=== PATIENT | female | born 1970 | race Caucasian/White ===

== ENCOUNTER → 2019-07-26 13:27 | Outpatient (BNVA) | payer OTHER, SELFPAY | PROVIDERS: Family Provider Family Medicine; PCP Family Medicine; Visit Provider Internal Medicine Rheumatology | DX: L40.50 Arthropathic psoriasis, unspecified (principal); L40.0 Psoriasis vulgaris; Z79.899 Other long term (current) drug therapy; M17.0 Bilateral primary osteoarthritis of knee; I10 Essential (primary) hypertension; F17.210 Nicotine dependence, cigarettes, uncomplicated | CPT/HCPCS: 36415; 80053; 85007; 85027; 99214 ==

== ENCOUNTER 2020-08-23 14:44 | Outpatient (CLI) | payer SELFPAY ==
--- NOTE | 2020-08-23 14:52 | MM_ITS ---
WS: [id number] Exam: [id number] Date/Time of Exam: 08/23/2020 2:55 PM Reason For Exam: SCREENING VIEWS: MLO and CC views both breasts. Comparison made with prior exam of 02/12/2018, 04/12/2014 and 12/28/2012. Findings: There was no sign of mass, architectural distortion or suspicious calcification in either breast. Fa tty MM/[place] [id number] Impression: BI-RADS: 2-Benign FOLLOW-UP: 1 Year Follow-up This mammogram was also analyzed by the Computer Aided Detection System R2 Imag e Admission Liaison.
== END 2020-08-23 14:45 | disposition home or self-care (01) ==
LOC: RADSHAW 14:50
PROVIDERS: PCP Family Medicine; Visit Provider Family Medicine
DX: Z12.31 Encounter for screening mammogram for malignant neoplasm of breast (principal)
CPT/HCPCS: 77067

== ENCOUNTER → 2021-01-08 13:25 | Outpatient (BNVA) | payer OTHER, SELFPAY | PROVIDERS: PCP Family Medicine; Visit Provider Internal Medicine | DX: Z79.899 Other long term (current) drug therapy (principal); D89.9 Disorder involving the immune mechanism, unspecified; Z51.81 Encounter for therapeutic drug level monitoring; L40.9 Psoriasis, unspecified; L40.50 Arthropathic psoriasis, unspecified; M15.9 Polyosteoarthritis, unspecified | CPT/HCPCS: 36415; 80053; 85025; 85651; 86140 ==

== ENCOUNTER → 2021-01-15 14:32 | Outpatient (BNVA) | payer OTHER, SELFPAY | PROVIDERS: PCP Family Medicine; Visit Provider Internal Medicine | DX: L40.9 Psoriasis, unspecified (principal); D89.9 Disorder involving the immune mechanism, unspecified; D50.9 Iron deficiency anemia, unspecified; Z79.899 Other long term (current) drug therapy | CPT/HCPCS: 99214 ==

== ENCOUNTER 2021-02-15 11:13 | Outpatient (CLI) | payer OTHER, SELFPAY ==
--- NOTE | 2021-02-15 11:19 | XR_ITS ---
WS: [id number] Chest 2 views, 02/15/2021 Clinical Data: RA Comparison: PA and lateral chest, 01/05/2013. Findings: No nodules, masses or effusions are seen. The heart is normal. The pulmonary vascularity is not increased. No pneumonia or pneumothorax is seen. XR/XR chest 2V* [id number] Impression: Negative chest.
== END 2021-02-15 11:14 | disposition home or self-care (01) ==
LOC: RAD 11:18
PROVIDERS: PCP Family Medicine; Visit Provider Family Medicine
DX: L40.50 Arthropathic psoriasis, unspecified (principal)
CPT/HCPCS: 71046

== ENCOUNTER → 2021-02-27 09:16 | Outpatient (BNVA) | payer OTHER, SELFPAY | PROVIDERS: PCP Family Medicine; Visit Provider Internal Medicine | DX: D89.9 Disorder involving the immune mechanism, unspecified (principal); L40.50 Arthropathic psoriasis, unspecified; L40.9 Psoriasis, unspecified; M15.9 Polyosteoarthritis, unspecified; Z51.81 Encounter for therapeutic drug level monitoring; Z79.899 Other long term (current) drug therapy | CPT/HCPCS: 36415; 80053; 85025; 85651; 86140 ==

== ENCOUNTER → 2021-03-07 09:56 | Outpatient (BNVA) | payer OTHER, SELFPAY | PROVIDERS: PCP Family Medicine; Visit Provider Internal Medicine | DX: L40.50 Arthropathic psoriasis, unspecified (principal); M15.9 Polyosteoarthritis, unspecified; Z11.59 Encounter for screening for other viral diseases; D50.9 Iron deficiency anemia, unspecified; R19.7 Diarrhea, unspecified; E87.6 Hypokalemia; Z87.891 Personal history of nicotine dependence | CPT/HCPCS: 80053; 82306; 82533; 82550; 82607; 82728; 82784; 83516; 83540; 83735; 84100; 84439; 84443; 86704; 86803; 87340; 99214 ==

== ENCOUNTER 2021-03-11 02:12 | Inpatient (IN) | payer OTHER, SELFPAY ==
[2021-03-11] VITALS (121 sets, daily range): BP systolic 105–140; BP diastolic 70–107; PULSE 62–94; RESP 13–34; TEMP 36.7–37.2; O2SAT 89–98; BMI 35.8
--- NOTE | 2021-03-11 02:18 | XR_ITS ---
WS: [id number] XR chest 1V portable [id number] REASON FOR EXAM: chest pain FINDINGS: The chest is unchanged compared to 02/15/2021. Heart and mediastinum are within normal limits. Calcified granulomatous disease is seen in both hemithoraces. No active pulmonary parenchymal or pleu ral disease is noted. Bony thorax is intact. XR/XR chest 1V portable [id number] IMPRESSION: No acute chest abnormality.
--- NOTE | 2021-03-11 02:18 | ECG_ITS ---
[facility] Test Date: 2021-03-11 Pat Name: Jayla Alvarez Department: Room: [facility] Gender: Female Desktop Publishing Operator: : 1970 Requested By: Billy Isaac Order Number: [id number] Yahaira MD: Yodit Velasquez M.D. Measurements Intervals [place] Rate: 65 P: 267 NH: 121 QRS: 74 QRSD: 97 T: 112 QT: 378 QTc: 394 Interpretive Statements JUNCTIONAL RHYTHM ST ELEVATION, CONSIDER INFERIOR INJURY [MARKED ST ELEVATION W/O NORMALLY INFLECTED T-WAVE IN II/aVF] ACUTE [place] INTERPRETATION BASED ON A DEFAULT AGE OF 40 YEARS No previous ECG available for comparison Electronically Signed On 03-11-2021 19:11:34 CDT by Yodit Velasquez M.D. [id number]
--- NOTE | 2021-03-11 02:19 | W.ED.CHESTPA ---
HPI - Chest Pain General: Chief Complaint: Chest Pain Stated Complaint: STEMI ALERT Time Seen by Provider: 03/11/21 02:15 History of Present Illness: HPI narrative: Ms. Alvarez is a 50-year-old lady with significant past medical history of psoriatic arthritis on steroids, tobaccoism, positive family history for early cardiac disease who presents emergency department due to chest pain. She reports symptom onset subacute approximately 2.5 hours ago. She has midsternal severe chest pain associated with nausea, vomiting, diaphoresis, presyncope. Symptoms have been constant since onset with no specific exacerbating relieving factors identified. She does have one self resolving episode that occurred previously however no significant history of frequent chest pain. No other significant infectious symptoms or other symptoms reported. Patient STEMI activated from EMS in the field. Review of Systems General: Reports: 10 or more systems reviewed and unremarkable except in HPI and below Narrative: CONSTITUTIONAL: See HPI EYES - denies pain, denies loss of vision EARS - denies ear issues. NOSE - denies congestion or rhinorrhea. THROAT - denies sore throat or difficulty swallowing. CARDIOVASCULAR -see HPI RESPIRATORY -see HPI GASTROINTESTINAL -see HPI GENITOURINARY - denies dysuria or urinary frequency MUSCULOSKELETAL- denies deformity or pain SKIN - denies rashes or new changed skin lesions NEUROLOGIC - denies focal weakness or sensory changes HEMATOLOGIC/LYMPHATIC - denies easy bruising or lymphadenopathy. 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 Eyes - PERRL, no conjunctival injection ENMT - Atraumatic external nose and ears. Moist mucous membranes NECK - supple. trachea midline CARDIOVASCULAR - regular rate and rhythm. Peripheral pulses 2+ and equal RESPIRATORY -clear to auscultation bilaterally. No retractions or accessory muscle use. ABDOMEN/GI - Nontender/Nondistended. No tenderness to percussion or evidence of peritonitis MSK - Extremities without obvious deformity or tenderness to palpation SKIN - Warm, Dry NEURO - alert and appropriately oriented. strength and sensation intact. Moves all extremities equally. PSYCH - Appropriate mood and affect Course ED course: - Patient was seen and evaluated by me at bedside - Patient placed on cardiac monitors, IV access obtained - Initial evaluation notable for ill appearance, distressed due to chest pain. - EKG consistent with STEMI as activated by the field. - Labs and imaging obtained and reviewed - Analgesia and STEMI protocol ordered. - Upon serial reexamination after treatment the patient was minimally improved - Cardiology at bedside, plan to take patient emergently to Vice President Of Talent Acquisition. Vital Signs: Vital signs: Vital Signs Temperature 98.1 F 03/11/21 21:10 Pulse Rate 77 03/12/21 00:40 Respiratory Rate 31 H 03/12/21 00:40 Blood Pressure 112/80 03/12/21 00:40 Pulse Oximetry 90 03/12/21 00:40 MDM - Chest Pain Medical Records: Attestation: I reviewed the patient's medical records. Lab Data: Attestation: I reviewed the patient's lab results. Labs: Lab Results 03/11/21 03/11/21 03/11/21 Range/Units 02:20 02:20 02:20 WBC 16.9 H (4.0-10.0) 10^3/ uL RBC 4.95 (4.1-5.3) 10^6/u L Hgb 10.8 L (11.5-15.3) g/dL Hct 36.8 L (37.0-47.0) % MCV 74.3 L (81-99) fl MCH 21.8 L (28.0-34.0) pg MCHC 29.3 L (30.0-36.0) g/dL RDW 21.4 H (12.1-15.1) % Plt Count 552 H (130-400) 10^3/c mm MPV 8.9 (7.4-10.4) fL Neut % (Auto) 74.1 % Lymph % (Auto) 19.8 % [place] % (Auto) 3.8 % Eos % (Auto) 1.2 % Baso % (Auto) 0.5 % Neut # (Auto) 12.48 H (1.8-7.7) 10^3/u L Lymph # (Auto) 3.3 (0.8-4.8) 10^3/u L [place] # (Auto) 0.6 (0.2-0.9) 10^3/u L Eos # (Auto) 0.2 (0.0-0.8) 10^3/u L Baso # (Auto) 0.1 (0.0-0.1) 10^3/u L Nucleated RBC % (a uto) 0 % Nucleated RBCs # 0.0 /100WBC PT 12.80 (12.1-14.9) SECO NDS INR 0.94 (0.8-1.2) APTT 27.8 (23.9-36.7) SECO NDS Sodium 135 L (136-145) mmol/L Potassium 3.2 L (3.5-5.1) mmol/L Chloride 100 (98-107) mmol/L Carbon Dioxide 21 L (22-29) mmol/L Anion Gap 17.2 (5-19) BUN 13 (6-20) mg/dL Creatinine 0.8 (0.5-0.9) mg/dL GFR Calculation 75.6 L (90-130) mL/min Glucose 228 H (65-115) mg/dL Calculated Osmolal ity 287 (285-295) mOsm/k g Calcium 7.9 L (8.5-10.5) mg/dL Total Bilirubin 0.2 (0.15-1.2) mg/dL AST 13 (0-32) U/L ALT 15 (0-33) U/L Alkaline Phosphata se 118 H (35-105) IU/L Troponin T Baselin e (0-10) ng/L Total Protein 8.0 (6.6-8.7) g/dL Albumin 3.5 (3.5-5.2) g/dL Globulin 4.5 (1.3-4.6) g/dL Lipase 57 (13-60) U/L 03/11/21 Range/Units 02:20 WBC (4.0-10.0) 10^3/ uL RBC (4.1-5.3) 10^6/u L Hgb (11.5-15.3) g/dL Hct (37.0-47.0) % MCV (81-99) fl MCH (28.0-34.0) pg MCHC (30.0-36.0) g/dL RDW (12.1-15.1) % Plt Count (130-400) 10^3/c mm MPV (7.4-10.4) fL Neut % (Auto) % Lymph % (Auto) % [place] % (Auto) % Eos % (Auto) % Baso % (Auto) % Neut # (Auto) (1.8-7.7) 10^3/u L Lymph # (Auto) (0.8-4.8) 10^3/u L [place] # (Auto) (0.2-0.9) 10^3/u L Eos # (Auto) (0.0-0.8) 10^3/u L Baso # (Auto) (0.0-0.1) 10^3/u L Nucleated RBC % (a uto) % Nucleated RBCs # /100WBC PT (12.1-14.9) SECO NDS INR (0.8-1.2) APTT (23.9-36.7) SECO NDS Sodium (136-145) mmol/L Potassium (3.5-5.1) mmol/L Chloride (98-107) mmol/L Carbon Dioxide (22-29) mmol/L Anion Gap (5-19) BUN (6-20) mg/dL Creatinine (0.5-0.9) mg/dL GFR Calculation (90-130) mL/min Glucose (65-115) mg/dL Calculated Osmolal ity (285-295) mOsm/k g Calcium (8.5-10.5) mg/dL Total Bilirubin (0.15-1.2) mg/dL AST (0-32) U/L ALT (0-33) U/L Alkaline Phosphata se (35-105) IU/L Troponin T Baselin e 74 H (0-10) ng/L Total Protein (6.6-8.7) g/dL Albumin (3.5-5.2) g/dL Globulin (1.3-4.6) g/dL Lipase (13-60) U/L EKG Data^: EKG 1: Attestation: I personally reviewed and interpreted this EKG as follows: EKG interpretation date: 03/11/21 EKG interpretation time: 02:13 Prior EKG tracings: not available for review Ischemic changes: acute STEMI Interpretation: Twelve-lead EKG shows a regular sinus rhythm at a rate of 65. [place] interval 121, QRS duration 97, QTc 394. Normal axis. Interpretation: Inferior STEMI with high lateral reciprocal changes. Critical Care Time Critical Care Time: Critical Care Time: Yes Total Critical Care Time: 35 Attestation: This case had a high probability of a clinically significant, sudden, or life threatening deterioration of this patient's condition which required my full and direct attention, intervention and personal management. Discharge Plan Discharge Patient Disposition: Admitted As Inpatient Admit Provider: Rell Harmon Coding Level of Care Code ED Statistician Applied for Jose Angel Peralta
[2021-03-11 02:24] LABS: Basophils # 0.1 10^3/uL (0.0-0.1); Basophils % 0.5 %; Eosinophils # 0.2 10^3/uL (0.0-0.8); Eosinophils % 1.2 %; Hematocrit 36.8 % (37.0-47.0); Hemoglobin 10.8 g/dL (11.5-15.3); Lymphocytes # 3.3 10^3/uL (0.8-4.8); Lymphocytes % 19.8 %; Mean Corpuscular HGB Conc 29.3 g/dL (30.0-36.0); Mean Corpuscular Hemoglobin 21.8 pg (28.0-34.0); Mean Corpuscular Volume 74.3 fl (81-99); Mean Platelet Volume 8.9 fL (7.4-10.4); Monocytes # 0.6 10^3/uL (0.2-0.9); Monocytes % 3.8 %; Neutrophils # 12.48 10^3/uL (1.8-7.7); Neutrophils % 74.1 %; Nucleated Red Blood Cells % 0 %; Platelet Count 552 10^3/cmm (130-400); Red Blood Count 4.95 10^6/uL (4.1-5.3); Red Cell Distribution Width 21.4 % (12.1-15.1); White Blood Count 16.9 10^3/uL (4.0-10.0)
[2021-03-11] MEDS: sodium chloride 0.9% 1,000 ML 999 ML IV (02:25)
[2021-03-11] MEDS: heparin 5,000 unit/mL INJ 1 mL 4000 UNIT IVP (02:26)
[2021-03-11] MEDS: fentaNYL 50 mcg/mL INJ 2mL IVP (02:26)
[2021-03-11] MEDS: clopidogrel 300 mg Tablet 600 MG PO (02:27)
--- NOTE | 2021-03-11 02:29 | P.HP_ITS ---
Providers/Chief Complaint Admitting Physician: Rell Harmon MD Primary Care Provider: Colt Adams MD Chief Complaint: STEMI ALERT History of Present Illness Jayla Alvarez is a 50 year old female with past medical history of tobacco abuse, psoriatic arthritis on prednisone presented with 2-1/2 hours of severe substernal chest pain. She had 1 prior episode of chest pain several days ago. Today pain is radiating to the arms. Also feels nauseous. EKG shows ST elevations in inferior leads. Reciprocal changes are seen in lateral leads. Patient was emergently taken to the cardiac Wire Brush Maker. Coronary angiogram demonstrated total thrombotic occlusion of proximal to mid RCA. She also had LEAD RAMP SERVICE MAN of the left circumflex artery getting collaterals supplied from RCA and LAD. She underwent successful revascularization of the culprit vessel which was RCA with DANAE x2. ST changes resolved and she was chest pain-free at the end of procedure. Review of Systems General: Reports: 10 or more systems reviewed and unremarkable except in HPI and below Const: Reports: body aches and fatigue Eyes: Denies: change in vision or blurry vision ENMT: Denies: hoarseness Card: Reports: chest pain and palpitations Resp: Denies: dyspnea or productive cough GI: Reports: nausea and other; Denies: diarrhea : Denies: flank pain or difficulty voiding Musc: Reports: joint pain and joint swelling Psych: Reports: depression Medications/Allergies Home Medications Medication Instructions Recorded Confirmed Last Taken Type ibuprofen-diphenhydramine citrate 1 cap PO .once daily tab 07/26/19 03/07/21 Unknown History 200 mg-38 mg tablet duloxetine 20 mg capsule,delayed 20 mg PO DAILY cap 01/15/21 03/07/21 Unknown History release ferrous sulfate PO 01/15/21 03/07/21 Unknown History naproxen 500 mg tablet 500 mg PO BID PRN 01/15/21 03/07/21 Unknown History prednisone 2.5 mg tablet 2.5 mg PO DAILY 01/15/21 03/07/21 Unknown History prednisone 5 mg tablet 5 mg PO DAILY #30 tab 02/14/21 03/07/21 Unknown Rx magnesium oxide 400 mg (241.3 mg 400 mg PO DAILY #30 tab 03/07/21 03/07/21 Unknown Rx magnesium) tablet potassium chloride 20 mEq 40 meq PO DAILY #30 tab 03/07/21 03/07/21 Unknown Rx tablet,extended release(part/cryst) vitamin B complex 1 tab PO DAILY #30 tab 03/07/21 03/07/21 Unknown Rx Allergies Allergy/AdvReac Type Severity Reaction Status Date / Time No Known Allergies Allergy Verified 03/07/21 10:32 PFSH Acute PFSH: Medical History Generalized osteoarthritis Immunosuppression Microcytic anemia Psoriasis Psoriatic arthritis Social History (Updated 03/11/21 @ 03:27 by Rell Harmon M.D) Smoking and tobacco status: current every day smoker Alcohol intake: current Alcohol intake frequency: few times a month Alcohol type: beer Marital status: Number of children: 2 Current occupational status: employed 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 [] NECK: No jugular vein distension. [] HEENT: No cyanosis. No icterus. No pallor. [] HEART: Regular S1 and S2. No murmur, rub or gallop. [] LUNGS: Clear to auscultate bilaterally. [] ABDOMEN: Soft, nontender and nondistended. Positive bowel sounds. No guarding, rebound or tenderness. [] CENTRAL NERVOUS SYSTEM: Grossly nonfocal. [] EXTREMITIES: Lower extremities with 1+ edema bilaterally. Pulses palpable in the lower extremities, both dorsalis pedis and posterior tibial. [] Data : 03/11/21 02:20 03/11/21 02:20 A&P Assessment and plan (1) ST elevation AR (STEMI): Status: Acute (2) Psoriatic arthritis: Status: Acute (3) Tobacco abuse: Status: Acute Patient has presented with acute ST elevation AR status post successful revascularization of proximal to mid status post successful revascularization of proximal to mid RCA with DANAE x2. Continue aspirin and Plavix for at least 1 year High intensity statin Beta-blockers and lisinopril will be initiated Order echocardiogram. IVF for 8 hours Attestations Medical Necessity Statement*: Care expected to cross 2 midnights. Patient presented with Acute inferior wall AR s/p successful revascularization with DANAE x 2. Coding Level of Care Code Acute Quality Reviewer for Jose Angel Peralta Diagnoses ST elevation AR (STEMI) I21.3 Psoriatic arthritis L40.50 Tobacco abuse Z72.0
--- NOTE | 2021-03-11 02:30 | XACV_ITS ---
Ht: 157 cm Wt: 89 kg BSA: 2.01 m2 Gender: Female : 1970 Any Known Allergies: No known allergies Exam Priority: Routine Procedure(s): Procedure Description: Diagnostic procedure Procedure Description: PCI procedure Procedure Description: Drug Eluting Coronary Stent Procedure Description: PTCA Procedure Description: Miscellaneous Procedure Description: Angio-Seal Procedure Description: ACT Procedure Description: Coronary angiogram Diagnostic Cath Status: Emergency Diagnostic Findings * Left Main has no significant disease. * Proximal Right Coronary Artery to Mid Right Coronary Artery: total thrombotic occlusion, TOÑA: 0 flow. * Proximal Circumflex: total occlusion, TOÑA: 0 flow. Distal vessel fills by collateral blood flow. * 1st Diagonal: total occlusion, TOÑA: 3 flow. Small sized vessel. * Mid Left Anterior Descending: mild 40% stenosis, TOÑA: 3 flow. * Mid Right Coronary Artery to Distal Right Coronary Artery: total occlusion, TOÑA: 0 flow. * Coronary angiography shows right dominance. PCI Status: Emergency PCI Indication: STEMI - Immediate PCI for STEMI Interventional Findings * Procedure details: We engaged RCA with a JR4 guide catheter. IV heparin was administered to maintain an ACT above 250 seconds. A 0.014 run-through guidewire was used to cross the stenosis and was placed in PLV branch. 2.5 x 12 mm semicompliant balloon was used to predilate the stenosis . This was followed by placement of 3.0 x 18 mm resolute [place] drug-eluting stent. A second stent measuring 3.0 x 18mm was put at the distal edge of the first stent and was extended into the mid RCA. At this time final angiogram was performed that showed excellent stent expansion, TOÑA-3 flow and no residual stenosis. Guidewire and guide catheter were removed. We then engaged the left main artery with XB 3.5 guide catheter. We briefly attempted to cross the chronic total occlusion of left circumflex artery with a run-through guidewire. However it was unsuccessful and we aborted further attempts given patient's stability, lack of chest pain and resolution of EKG changes. Patient left the Regional Wildlife Agent in a stable condition. * Proximal Right Coronary Artery to Mid Right Coronary Artery: 100% stenosis treated with a AB TREK 2.50X12 RX BALLOON, and MDT R ERIK 3.0X18 DANAE. 0% residual stenosis, TOÑA: 3 flow. * Mid Right Coronary Artery to Distal Right Coronary Artery: 100% stenosis treated with a MDT R ERIK 3.0X18 DANAE. 0% residual stenosis, TOÑA: 3 flow. Conclusions 1. Total thrombotic occlusion of the proximal to mid RCA s/p successful revascularization with DANAE x 2. 2. 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 3. Moderate mid LAD stenosis. 4. Proximal Right Coronary Artery to Mid Right Coronary Artery was treated with a Balloon, and Drug Eluting Stent. 5. Mid Right Coronary Artery to Distal Right Coronary Artery was treated with a Drug Eluting Stent. Recommendations * Admit to ICU. * Aspirin and Plavix for atleast 1 year. * High intensity statin therapy. * Beta wandy. * Outpatient cardiology follow up in 4 weeks. * We will obtain stress test as outpatient to evaluate ischemia in the LAD territory. Interventional RX Recommendation: PCI w/o planned CABG Diagnostic RX Recommendation: PCI w/o planned CABG Anticoagulation: Heparin Pressures Phase:Rest AO : 98 / 73 ( 87 ) @ 10:41:00 PM Clinical Evaluation EBL: 5mL-10mL Procedural Details Pre-Procedure Time Out. Identified patient by full name and date of as verbalized by the patient/guarantor. Does the consent match the physician's order: N/A Emergent; Informed Consent not obtained due to time critical life threat. Accurate & Complete Informed Consent: N/A Emergent; Informed Consent not obtained due to time critical life threat. Inpatient/Outpatient History & Physical on Chart: N/A Emergent; Informed Consent not obtained due to time critical life threat. If H&P is completed, is and addenduem needed: N/A Emergent; Informed Consent not obtained due to time critical life threat; If yes, is the addendum complete: N/A Emergent; Informed Consent not obtained due to time critical life threat. Visualize and Verify Site with Patient/Guarantor: N/A. Pre-op teaching completed and patient verbalized understanding. The risks, benefits, and alternatives of sedation and/or procedure were discussed by physician. The patient agrees to continue. Procedure started. Correct patient, site and procedure confirmed by cath team. PERRLA. Strong, equal hand drug enforcement agent bilaterally. Lungs clear x 5 lobes. IV Site on Arrival: 18 gauge in the right anticubital. IV Site on Arrival: 18 gauge in the right anticubital. Oxygen started at 2liters/min via nasal canula. right groin was prepped with chloroprep then draped in the usual sterile fashion. Baseline sample Acquired. HR: 0 BPM. Physician notified. Equipment: 6F - Femoral. Cardiac Cath Pack. ACIST Manifold Kit Model BT 2000. Heparinized Saline (2 units/mL), 1000 mL bag. Physician arrived. Physician scrubbed in. Immediate Pre-Procedure Time Out. Correct Patient: Yes; Correct Procedure: Yes; Correct Site: Yes; Correct Patient Position: Yes; Correct Supplies: Yes; Dried Flammable Prep: Yes; Blood Products Available: N/A Emergent; Informed Consent not obtained due to time critical life threat;. Kit, Micropuncture. Lidocaine 1% infiltrated to the right groin. Arterial access obtained with micropuncture set. A 6 welsh JL4 catheter in over wire. Multiple views taken of the LCS. Catheter removed over the wire. Inventory is CRD 6FR JR 4 GUIDE 100cm. A 6 welsh JR4 GUIDE in over wire. Runthrough guidewire was advanced through the guide catheter to lesion in the prox RCA. Guidewire advanced across lesion. Inflation number : 1 A AB TREK 2.50X12 RX BALLOON was prepped and advanced across the Prox RCA , then inflated to 12 RAYSA for 0:12 seconds. Balloon out over the wire. Angiography performed. Inflation Number : 2 A MDT R ERIK 3.0X18 DANAE -Lot Number# [id number] was prepped and advanced across the Prox RCA. The stent was deployed at 12 RAYSA for 0:28 seconds. EXP 11/13/2023. Stent balloon out over the wire. Angiography performed. Inflation Number : 1 A MDT R ERIK 3.0X18 DANAE -Lot Number# [id number] was prepped and advanced across the Mid RCA. The stent was deployed at 12 RAYSA for 0:27 seconds. EXP 08/21/2022. Inflation number: 2 The stent balloon was then re-inflated across the Mid RCA to 12 RAYSA for 0:10 seconds. Stent balloon out over the wire. Angiography performed. Wire out. Results checked. Multiple view of RCA taken. Guide catheter removed over the wire. Inventory is CRD 6FR XB 3 GUIDE. 6 welsh XB 3 guide catheter was inserted over the wire. ACT drawn. Results 199 seconds. Therapeutic limits - pre-heparin administration 90-150 seconds and monitoring heparin during a vascular procedure >250 seconds. ACT redrawn. Initial result corrupted. Redrawn. Guide seated in the LCS. Multple views taken of LCA. Runthrough guidewire was advanced through the guide catheter to lesion in the prox Circ. Attempting to cross LCX unsuccessful. Removed wire. Angiography performed. Guide catheter removed over the wire. ACT drawn. Results 222 seconds. Therapeutic limits - pre-heparin administration 90-150 seconds and monitoring heparin during a vascular procedure >250 seconds. A Right femoral angiogram was performed to determine safe placement of closure device. A Angio-Seal VIP ([place]) was successful obtaining hemostatsis at the right femoral artery insertion site. Lot # [id number] EXP 10-26-2021. Physician review of films. Physician scrubbed out. Angioseal placed without complications. No signs or symptoms of hematoma noted. Sterile dressing applied per usual sterile fashion. Manual pressure held by scrub post procedure for 3 minutes. Post Procedure: Pulses reassessed and unchanged. PERRLA. Strong, equal hand drug enforcement agent bilaterally. No VTE prophylaxis required. Medication's Wasted: Nitro = 49.8 mg. Medication's Wasted: Heparin = 4000 units. Total IV fluids: 200 mL. Fluoro: 10:00. Contrast type used: Omnipaque 300 mgI/mL, 500 mL bottle. [id number]. Post-op diagnosis: ACUTE STEMI, OCCLUSION OF PROXIMAL RCA. Complications: NONE. Estimated blood loss: 5mL-10mL. Procedure completed. Vital chart was stopped. Medication's Wasted: Fentanyl = 25 mcg. Patient transferred by bed to ICU. Vital chart was stopped. Current Diagnosis : STEMI. Procedure started. Access Site Site: Right Femoral artery Sheath Size: 6 Fr Hemostasis Method: Angio-Seal VIP ([place]) Hemostasis Success: Successful Procedure Medications Start: 2:41 AM Stop: 2:41 AM Medication: Versed 1 mg and Fentanyl 25 mcg Route: I.V. Start: 2:47 AM Stop: 2:47 AM Medication: Heparin Amount: 4000 units Route: I.V. Start: 2:52 AM Stop: 2:52 AM Medication: Aggrastat 12.5 mg/250 mL Amount: 45 ml Route: I.V. bolus Start: 2:54 AM Stop: 2:54 AM Medication: Fentanyl Amount: 25 mcg Route: I.V. Start: 2:58 AM Stop: 2:58 AM Medication: Versed Amount: 0.5 mg Route: I.V. Start: 3:02 AM Stop: 3:02 AM Medication: Nitrogylcerin Amount: 200 mcg Route: I.C. Start: 3:09 AM Stop: 3:09 AM Medication: Heparin Amount: 3000 units Route: I.V. Start: 3:09 AM Stop: 3:09 AM Medication: Versed Amount: 0.5 mg Route: I.V. Start: 3:11 AM Stop: 3:11 AM Medication: Fentanyl Amount: 25 mcg Route: I.V. Start: 3:20 AM Stop: 3:20 AM Medication: Heparin Amount: 2000 units Route: I.V. I, the attending physician, have reviewed and verified all procedure medications. Yes, all medications given per verbal order Report Signatures Finalized by Rell Harmon MD on 03/11/2021 01:08 PM
[2021-03-11] MEDS: ondansetron 2 mg/ML SDV 2 mL 4 MG IVP ×2 (02:33→14:02)
[2021-03-11 02:35] LABS: INR 0.94 (0.8-1.2)
[2021-03-11 02:36] LABS: Partial Thromboplastin Time 27.8 SECONDS (23.9-36.7)
[2021-03-11] MEDS: morphine 4 mg/mL SDV 1 mL IVP (02:36)
[2021-03-11 02:41] LABS: Troponin(5th) Baseline 74 ng/L (0-10)
[2021-03-11 02:43] LABS: Alanine Aminotransferase 15 U/L (0-33); Albumin Level 3.5 g/dL (3.5-5.2); Alkaline Phosphatase 118 IU/L (35-105); Anion Gap 17.2 (5-19); Aspartate Amino Transferase 13 U/L (0-32); Blood Urea Nitrogen 13 mg/dL (6-20); Calcium 7.9 mg/dL (8.5-10.5); Carbon Dioxide 21 mmol/L (22-29); Chloride 100 mmol/L (98-107); Globulin 4.5 g/dL (1.3-4.6); Glomerular Filtration Rate 75.6 mL/min (90-130); Glucose 228 mg/dL (65-115); Lipase 57 U/L (13-60); Osmolality Calculated 287 mOsm/kg (285-295); Potassium 3.2 mmol/L (3.5-5.1); Sodium 135 mmol/L (136-145); Total Bilirubin 0.2 mg/dL (0.15-1.2)
--- NOTE | 2021-03-11 03:40 | USCV_ITS ---
Jayla Alvarez Age: 50 Gender: F : 1970 Exam Date: 03/11/2021 07:00 Ordering Phys: Rell Harmon M.D ([email or web address]) Technologist: Exam Location: [facility] [place] Indication: BP: 100 / 78 HR: 82 Rhythm: Sinus Technical Quality: MEASUREMENTS (Male / Female) Normal Values 2D ECHO LV Diastolic Diameter PLAX 4.8 cm 4.2 - 5.9 / 3.9 - 5.3 cm LV Systolic Diameter PLAX 3.3 cm IVS Diastolic Thickness 0.9 cm 0.6 - 1.0 / 0.6 - 0.9 cm IVS Systolic Thickness 1.0 cm LVPW Diastolic Thickness 1.2 cm 0.6 - 1.0 / 0.6 - 0.9 cm LVPW Systolic Thickness 1.2 cm LVOT Diameter 2.1 cm LV Ejection Fraction 2D Teich 58.0 % LV Ejection Fraction MOD 2C 65.2 % LV Ejection Fraction 2C AL 64.6 % LA Diameter 2.7 cm LA Width 3.7 cm LA Height 4.8 cm RA Width 3.8 cm RA Height 4.3 cm Aorta at Sinotubular Diameter 3.0 cm DOPPLER AV Peak Velocity 179.0 cm/s LVOT Peak Velocity 111.0 cm/s AV Area Cont Eq vti 2.4 cm squared AV Area Cont Eq pk 2.1 cm squared MV Area PHT 5.0 cm squared Mitral E to A Ratio 1.2 MV E' Velocity 64.5 cm/s Mitral E to MV E' Ratio 12.8 Mitral E to LV E' Lateral Ratio 11.4 Mitral E to LV E' Septal Ratio 14.9 TR Peak Velocity 153.8 cm/s TR Peak Gradient 9.5 mmHg TV Peak E Velocity 103.0 cm/s Right Atrial Pressure 3.0 mmHg Pulmonary Artery Systolic Pressu 12.5 mmHg FINDINGS Left Ventricle Normal left ventricular size. LV systolic function is normal with EF of 55-60%. Moderate hypokinesis of the inferolateral wall is noted. Normal diastolic filling pattern. Right Ventricle The right ventricle is normal in size and function. Right Atrium The right atrium is normal in size. Left Atrium The left atrium is normal in size. Mitral Valve Aortic Valve Structurally normal aortic valve without significant sclerosis or stenosis. There is no aortic regurgitation. Tricuspid Valve Structurally normal tricuspid valve without significant stenosis or regurgitation. Insufficient TR jet to calculate RVSP Pulmonic Valve Structurally normal pulmonic valve without significant stenosis. There is no pulmonic regurgitation. Pericardium Normal pericardium without effusion. Aorta Normal ascending aorta dimension. CONCLUSIONS LV systolic function is normal with EF of 55-60%. Moderate hypokinesis of the inferolateral wall is noted Diastolic function is normal Mild mitral regurgitation No comparison studies are available Rell Harmon MD (Electronically Signed) Final Date: 11 March 2021 12:30 S
--- NOTE | 2021-03-11 04:11 | PC.NURSE ---
label folder took patient at 0230
--- NOTE | 2021-03-11 04:18 | ECG_ITS ---
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 Measurements Intervals [place] Rate: 83 P: 66 WI: 177 QRS: 29 QRSD: 102 T: -23 QT: 392 QTc: 463 Interpretive Statements SINUS RHYTHM POSSIBLE RIGHT VENTRICULAR CONDUCTION DELAY [RSR (QR) IN V1/V2] INFERIOR MYOCARDIAL INFARCTION , OF INDETERMINATE AGE [40+ ms Q WAVE AND/OR ST/T ABNORMALITY IN II/aVF] No previous ECG available for comparison Electronically Signed On 03-11-2021 19:21:51 CDT by Yodit Velasquez M.D. [id number]
[2021-03-11] MEDS: potassium chloride ER 20 mEq Tablet 40 MEQ PO ×2 (05:27→08:54)
[2021-03-11] MEDS: sodium chloride 0.9% 1,000 ML 100 ML IV ×2 (05:28→08:55)
[2021-03-11 08:10] LABS: Blood Urea Nitrogen 11 mg/dL (6-20); Calcium 7.8 mg/dL (8.5-10.5); Carbon Dioxide 23 mmol/L (22-29); Chloride 105 mmol/L (98-107); Glomerular Filtration Rate 130.1 mL/min (90-130); Glucose 86 mg/dL (65-115); Osmolality Calculated 285 mOsm/kg (285-295); Sodium 138 mmol/L (136-145)
--- NOTE | 2021-03-11 08:18 | ECG_ITS ---
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 Measurements Intervals [place] Rate: 78 P: 56 VT: 156 QRS: -14 QRSD: 90 T: -34 QT: 396 QTc: 451 Interpretive Statements SINUS RHYTHM POSSIBLE LEFT ATRIAL ENLARGEMENT [-0.1mV P-WAVE IN V1/V2] POSSIBLE RIGHT VENTRICULAR CONDUCTION DELAY [RSR (QR) IN V1/V2] INFERIOR MYOCARDIAL INFARCTION , OF INDETERMINATE AGE Compared to ECG 03/11/2021 04:42:35 No significant changes Electronically Signed On 03-11-2021 19:21:18 CDT by Yodit Velasquez M.D. [id number]
[2021-03-11 08:19] LABS: Troponin 5 2HR 2661 ng/L (0-10); Troponin 5 2HR Delta 2587 ABS# (0-10)
--- NOTE | 2021-03-11 08:45 | PC.CHAP ---
Pastoral Care Encounter/Spiritual Assessment Type of Contact [] Declined director ehs visit [] Patient/Family/Request visit [] Outpatient visit [] Follow-up visit [] Physician referral [] Code/Alert [x] Routine visit [] Staff referral [] Actively dying [] Patient sleeping [] Family support [] [] Out of room [] Palliative care [] [x] Receiving care in room [] Pre-surgical visit [] Trauma [] Long length of stay [x] ICU visit [] Other: Relational/Emotional Strength [] Patient feels connected with others/family/visitors/staff [] Distress [] Loneliness/isolation [] Abandonment Spirituality of Patient [] Person of Latisha [] Attends Confucianism of their Latisha [] Believes in Prayer [] Reads Bible or Holiness materials [] There are Spiritual issues to be addressed Oil Laboratory Analyst Interventions [x] Prayer [] Active listening [] Non-anxious presence [] Spiritual/emotional support [] Crisis/trauma care [] Spiritual counseling [] Bereavement support [] Provided bereavement packet [] Provided Bible/devotional materials [] Provided toy/stuffed animal, coloring book to patient or family member [] Provided Communion [] Anointing/Massey [] Salvation [x] Completed spiritual assessment [] Other: Impact on Illness or Injury [] Angry [] Fearful [] Anxious [] Often cries [] Exhaustion [] Unable to work [] Unable to attend congregation [] Unable to walk/stand [] Unable to read [] Unable to drive [] Unable to eat/drink [] Unable to sleep [] Unable to be with family [] Patient intubated [] Other: Summary Time spent with patient
[2021-03-11 08:52] LABS: Basophils # 0.1 10^3/uL (0.0-0.1); Basophils % 0.6 %; Eosinophils # 0.1 10^3/uL (0.0-0.8); Eosinophils % 0.4 %; Hematocrit 34.6 % (37.0-47.0); Hemoglobin 10.5 g/dL (11.5-15.3); Lymphocytes # 2.5 10^3/uL (0.8-4.8); Lymphocytes % 22.6 %; Mean Corpuscular HGB Conc 30.3 g/dL (30.0-36.0); Mean Corpuscular Hemoglobin 21.7 pg (28.0-34.0); Mean Corpuscular Volume 71.6 fl (81-99); Mean Platelet Volume 9.2 fL (7.4-10.4); Monocytes # 0.6 10^3/uL (0.2-0.9); Monocytes % 4.9 %; Neutrophils # 7.86 10^3/uL (1.8-7.7); Neutrophils % 70.8 %; Nucleated Red Blood Cells % 0 %; Platelet Count 427 10^3/cmm (130-400); Red Blood Count 4.83 10^6/uL (4.1-5.3); Red Cell Distribution Width 21.2 % (12.1-15.1); White Blood Count 11.1 10^3/uL (4.0-10.0)
[2021-03-11] MEDS: predniSONE 5 mg Tablet PO (08:54)
[2021-03-11] MEDS: alum-mag-hydroxide-sime 30 mL UDC PO (08:54)
[2021-03-11] MEDS: clopidogrel 75 mg Tablet PO (08:55)
[2021-03-11] MEDS: metoprolol tartrate 25 mg Tablet 12.5 MG PO ×2 (08:55→20:17)
[2021-03-11] MEDS: aspirin 81 mg EC Tablet PO (08:55)
[2021-03-11] MEDS: duloxetine 20 mg Capsule PO (08:55)
--- NOTE | 2021-03-11 08:59 | PC.PHAR ---
pt states she takes care of her own medications-pt states she has been taking 5mg of prednisone pt states she has 2.5mg from her pcp but states she only takes the 5mg daily-pt states she hasnt started taking kcl 40meq magnesium oxide or the vitamin b complex rx written on 03/07/21-notes are made in the pharmacy comments
[2021-03-11 09:49] LABS: Add Urine Culture? Yes; Add Urine Microscopic? YES; Bacteria Urine 3+ /hpf; Bilirubin Urine Neg (Negative); Blood Urine 3+ (Negative); Glucose Urine UA Norm (Normal); Ketones Urine Negative (Negative); Leukocyte Esterase Urine Negative (Negative); Nitrate Urine Positive (Negative); Protein Urine Neg (Negative); RBC Urine 0-4 /hpf (0-2); Squamous Epithelial Cell Urine RARE /hpf (0-5); Urine Appearance Clear (CLEAR); Urine Color Straw (Yellow); Urobilinogen Urine Norm (Negative); pH Urine 5 (5-7)
--- NOTE | 2021-03-11 19:13 | PC.NURSE ---
Shift Note: NO ectopy noted throughout day. Right groin remains soft, palpable with no hematomas noted. Old blood noted under dressing. Pt has had gastric uset today, significant aount of belching, then flatulence then 1 abrupt bout of emesis. She then had a sound nap. She stated she felt much better afterwards. Frequent safety and comfort rounds continue. Orders and/or nursing care completed as indicated. Patient monitored for response to intervention and treatment(s). Education provided include post cardiac cath care, Shira. Patient verbalized understanding. Will continue to monitor.
[2021-03-11] MEDS: atorvastatin 40 mg Tablet 80 MG PO (20:17)
[2021-03-12] VITALS (50 sets, daily range): BP systolic 107–134; BP diastolic 65–98; PULSE 70–107; RESP 2–31; TEMP 36.8; O2SAT 88–96
[2021-03-12] MEDS: acetaminophen 325 mg Tablet 650 MG PO (03:41)
[2021-03-12 06:04] LABS: Basophils % 0.5 %; Eosinophils # 0.2 10^3/uL (0.0-0.8); Eosinophils % 2.3 %; Hematocrit 33.4 % (37.0-47.0); Hemoglobin 9.8 g/dL (11.5-15.3); Lymphocytes % 22.3 %; Mean Corpuscular HGB Conc 29.3 g/dL (30.0-36.0); Mean Corpuscular Hemoglobin 21.3 pg (28.0-34.0); Mean Corpuscular Volume 72.6 fl (81-99); Mean Platelet Volume 8.7 fL (7.4-10.4); Monocytes # 0.4 10^3/uL (0.2-0.9); Monocytes % 4.7 %; Neutrophils # 6.16 10^3/uL (1.8-7.7); Neutrophils % 70.1 %; Nucleated Red Blood Cells % 0 %; Platelet Count 407 10^3/cmm (130-400); Red Cell Distribution Width 21.2 % (12.1-15.1); White Blood Count 8.8 10^3/uL (4.0-10.0)
[2021-03-12 06:25] LABS: Blood Urea Nitrogen 9 mg/dL (6-20); Calcium 8.3 mg/dL (8.5-10.5); Carbon Dioxide 26 mmol/L (22-29); Chloride 103 mmol/L (98-107); Glomerular Filtration Rate 130.1 mL/min (90-130); Glucose 107 mg/dL (65-115); Osmolality Calculated 283 mOsm/kg (285-295); Sodium 137 mmol/L (136-145)
--- NOTE | 2021-03-12 06:26 | PC.NURSE ---
R groin remains soft, palpable, with no hematoma noted, pedal pulse on R foot also is palpable, this nurse cleaned procedure site and once cleaned it was noted to have no bleeding or oozing from site.
--- NOTE | 2021-03-12 08:31 | PM.DCS ---
Discharge Providers Date of Admission: 03/11/21 03:38 Date of Discharge: March 12, 2021 Attending Provider at Admission: Rell Harmon M.D Attending Provider at Discharge: Rell Harmon M.D Primary Care Provider: Colt Adams MD Diagnoses at Discharge Discharge Diagnosis (1) ST elevation AR (STEMI): (2) Psoriatic arthritis: Status: Acute (3) Tobacco abuse: Status: Acute Reason for Visit Reason for Visit: STEMI Brief History: 50 year old female with past medical history of tobacco abuse, psoriatic arthritis on prednisone presented with 2-1/2 hours of severe substernal chest pain. She had 1 prior episode of chest pain several days ago. Pain was radiating to the arms. EKG shows ST elevations in inferior leads. Reciprocal changes are seen in lateral leads. Patient was emergently taken to the cardiac Pulping Machine Operator. Hospital Course Hospital Course 50 year old female with past medical history of tobacco abuse, psoriatic arthritis on prednisone presented with 2-1/2 hours of severe substernal chest pain. She had 1 prior episode of chest pain several days ago. Pain was radiating to the arms. EKG shows ST elevations in inferior leads. Reciprocal changes are seen in lateral leads. Patient was emergently taken to the cardiac Pulping Machine Operator. Coronary angiogram demonstrated total thrombotic occlusion of proximal to mid RCA. She also had LOSS PREVENTION MANAGER of the left circumflex artery getting collaterals supplied from RCA and LAD. She underwent successful revascularization of the culprit vessel which was RCA with DANAE x2. ST changes resolved and she was chest pain-free at the end of procedure. Patient's LV systolic function was normal with moderate hypokinesis of inferolateral wall. She did well during her stay at the hospital and was discharged home in a stable condition. Physical Exam Narrative: EXAM NARRATIVE: GENERAL: Patient is alert, awake and oriented x3. [] NECK: No jugular vein distension. [] HEENT: No cyanosis. No icterus. No pallor. [] HEART: Regular S1 and S2. No murmur, rub or gallop. [] LUNGS: Clear to auscultate bilaterally. [] ABDOMEN: Soft, nontender and nondistended. Positive bowel sounds. No guarding, rebound or tenderness. [] CENTRAL NERVOUS SYSTEM: Grossly nonfocal. [] EXTREMITIES: Lower extremities with 1+ edema bilaterally. Pulses palpable in the lower extremities, both dorsalis pedis and posterior tibial. [] Discharge Data Data Completed and Pending: Completed Studies During Hospitalization Category Date Time Status BENDER MACHINE OPERATOR request for service Stat Exams 03/11/21 02:30 Completed XR chest 1V daylin ble [id number] Urgent Exams 03/11/21 02:18 Completed CV. echo complete * [id number] Routine Ultrasound 03/11/21 03:40 Completed Pending at discharge Category Date Time Status Basic Metabolic P ventura AM LABS Lab 03/13/21 04:00 Ordered Complete Blood Co unt w/Auto AM LABS Lab 03/13/21 04:00 Ordered Urine Culture Sta t Lab 03/11/21 09:05 Received Labs from last 24 hours 03/12/21 03/12/21 03/11/21 05:37 05:37 09:05 WBC 8.8 RBC 4.60 Hgb 9.8 L Hct 33.4 L MCV 72.6 L MCH 21.3 L MCHC 29.3 L RDW 21.2 H Plt Count 407 H MPV 8.7 Neut % (Auto) 70.1 Lymph % (Auto) 22.3 Blaine % (Auto) 4.7 Eos % (Auto) 2.3 Baso % (Auto) 0.5 Neut # (Auto) 6.16 Lymph # (Auto) 2.0 Blaine # (Auto) 0.4 Eos # (Auto) 0.2 Baso # (Auto) 0.0 Nucleated RBC % (a uto) 0 Nucleated RBCs # 0.0 Sodium 137 Potassium 4.0 Chloride 103 Carbon Dioxide 26 Anion Gap 12.0 BUN 9 Creatinine 0.5 GFR Calculation 130.1 H Glucose 107 Calculated Osmolal ity 283 L Calcium 8.3 L Urine Color Straw Urine Appearance Clear Urine pH 5 Ur Specific Gravit y 1.010 Urine Protein Neg Urine Glucose (UA) Norm Urine Ketones Negative Urine Blood 3+ H Urine Nitrate Positive H Urine Bilirubin Neg Urine Urobilinogen Norm Ur Leukocyte Gogo ase Negative Urine RBC 0-4 H Urine WBC None Ur Squamous Epith Cells Rare Amorphous Sediment Not Reportable Urine Bacteria 3+ H 03/11/21 07:25 WBC 11.1 H RBC 4.83 Hgb 10.5 L Hct 34.6 L MCV 71.6 L MCH 21.7 L MCHC 30.3 RDW 21.2 H Plt Count 427 H MPV 9.2 Neut % (Auto) 70.8 Lymph % (Auto) 22.6 Blaine % (Auto) 4.9 Eos % (Auto) 0.4 Baso % (Auto) 0.6 Neut # (Auto) 7.86 H Lymph # (Auto) 2.5 Blaine # (Auto) 0.6 Eos # (Auto) 0.1 Baso # (Auto) 0.1 Nucleated RBC % (a uto) 0 Nucleated RBCs # 0.0 Sodium Potassium Chloride Carbon Dioxide Anion Gap BUN Creatinine GFR Calculation Glucose Calculated Osmolal ity Calcium Urine Color Urine Appearance Urine pH Ur Specific Gravit y Urine Protein Urine Glucose (UA) Urine Ketones Urine Blood Urine Nitrate Urine Bilirubin Urine Urobilinogen Ur Leukocyte Gogo ase Urine RBC Urine WBC Ur Squamous Epith Cells Amorphous Sediment Urine Bacteria Vitals: Last Vital Signs Temp 98.3 F 03/12/21 01:00 Pulse 74 03/12/21 06:00 Resp 19 H 03/12/21 03:35 BP 110/65 03/12/21 03:35 Pulse Ox 96 03/12/21 03:35 Discharge Plan Discharge Patient Disposition: Home Condition: Stable Prescriptions: New atorvastatin 40 mg Tablet 80 mg PO BEDTIME Qty: 90 RF: 3 clopidogrel 75 mg Tablet 75 mg PO DAILY Qty: 90 RF: 3 aspirin 81 mg Tablet,Delayed Release (Dr/Ec) 81 mg PO DAILY Qty: 90 RF: 3 lisinopril 2.5 mg tablet 2.5 mg PO DAILY Qty: 90 RF: 3 Continued prednisone 2.5 mg tablet 2.5 mg PO DAILY RF: 0 duloxetine 20 mg capsule,delayed release(DR/EC) 20 mg PO BEDTIME RF: 0 potassium chloride [Klor-Con M20] 20 mEq tablet,ER particles/crystals 40 meq PO DAILY Qty: 30 RF: 0 prednisone 5 mg tablet 5 mg PO DAILY Qty: 30 RF: 0 ferrous sulfate 325 mg (65 mg iron) Tablet 325 mg PO BID RF: 0 magnesium oxide 400 mg (241.3 mg magnesium) tablet 400 mg PO DAILY RF: 0 Discontinued naproxen 500 mg tablet 500 mg PO BID PRN (Reason: Pain) RF: 0 No Action metoprolol tartrate 25 mg tablet 25 mg PO BID RF: 0 Discharge Orders: Discharge Order (Routine); Ordered 03/12/21 Ordered By: Rell Harmon Referrals: Rell Harmon M.D [Physician] - 10/18/21 3:30 pm Genny Nicholas FNP [Nurse Practitioner] - 03/22/21 10:00 am Discharge Diet: Cardiac Discharge Activity: Increase activity as tolerated Patient Instructions: Metoprolol (By mouth), Lisinopril (By mouth), Aspirin (By mouth), Atorvastatin (By mouth), Clopidogrel (By mouth), Heart Healthy Diet, Left Heart Catheterization (DC), Coronary Angioplasty (DC), How to Stop Smoking (DC), Cigarette Smoking and Your Health (GEN), Opioid Safety, Quitting Smoking Activity Restrictions/Additional Instructions: Please do not lift more than 5 pounds of weight for the next 5 days Discharge Attestations Time Spent in Discharge Care*: greater than 30 min Quality Metrics Clinical Quality Measures During this hospital stay, did patient experience: AMI Clinical Trial Participant: No Contraindication to aspirin (AMI): Aspirin given Contraindication to statin: Statin prescribed Coding Level of Care Code Acute Chg FW DC note Diagnoses ST elevation AR (STEMI) I21.3 Psoriatic arthritis L40.50 Tobacco abuse Z72.0
[2021-03-12] MEDS: clopidogrel 75 mg Tablet PO (09:27)
[2021-03-12] MEDS: predniSONE 5 mg Tablet PO (09:27)
[2021-03-12] MEDS: aspirin 81 mg EC Tablet PO (09:27)
[2021-03-12] MEDS: duloxetine 20 mg Capsule PO (09:27)
[2021-03-12] MEDS: potassium chloride ER 20 mEq Tablet 40 MEQ PO (09:28)
[2021-03-12] MEDS: metoprolol tartrate 25 mg Tablet 12.5 MG PO (09:31)
--- NOTE | 2021-03-13 09:32 | PC.SOCIAL ---
discharge follow up call made. patient reports she is feeling good. new prescriptions filled and taking as prescribed. patient denies questions or concerns. patient is aware of follow up appointment date and times.
--- NOTE | 2021-03-15 07:41 | PC.RESP ---
SMOKING CESSATION INFORMATION SENT TO PATIENT.
== END 2021-03-12 10:57 | disposition home or self-care (01) | DRG 247 ==
LOC: ER 03:00 → ICU 06:47
PROVIDERS: Admitting Provider Internal Medicine; Emergency Provider Emergency Medicine; PCP Family Medicine; Visit Provider Internal Medicine
PROC: B2111ZZ Fluoroscopy of Multiple Coronary Arteries using Low Osmolar Contrast (ICD-10-PCS; principal; 2021-03-11 02:00)
PROC: B2111ZZ Fluoroscopy of Multiple Coronary Arteries using Low Osmolar Contrast (ICD-10-PCS; 2021-03-11 02:00)
DX: I21.19 ST elevation (STEMI) myocardial infarction involving other coronary artery of inferior wall (principal); L40.50 Arthropathic psoriasis, unspecified; M15.9 Polyosteoarthritis, unspecified; D50.9 Iron deficiency anemia, unspecified; Z72.0 Tobacco use
CPT/HCPCS: 36415; 71045; 80048; 80053; 81001; 83690; 84484; 85025; 85347; 85610; 85730; 87077; 87086; 87186; 93005; 93306; 93454; 96374; 96375; 99285; C1725; C1760; C1769; C1874; C1887; C1894; C9600; J0461; J1644; J2250; J2270; J2405; J3010; J3246; J3490; J7030; J7512; Q9967

== ENCOUNTER → 2021-03-22 10:42 | Outpatient (BNVA) | payer OTHER, SELFPAY | PROVIDERS: PCP Family Medicine; Visit Provider Nurse Practitioner Family | DX: I25.10 Atherosclerotic heart disease of native coronary artery without angina pectoris (principal); Z09 Encounter for follow-up examination after completed treatment for conditions other than malignant neoplasm | CPT/HCPCS: 80048 ==

== ENCOUNTER → 2021-03-26 14:24 | Outpatient (BNVA) | payer OTHER, SELFPAY | PROVIDERS: PCP Family Medicine; Visit Provider Internal Medicine | DX: Z79.899 Other long term (current) drug therapy (principal) | CPT/HCPCS: 36415; 80053; 82306; 82533; 82550; 82607; 82728; 82784; 83516; 83540; 83735; 84100; 84439; 84443; 86704; 86803; 87340 ==

== ENCOUNTER → 2021-04-04 15:20 | Outpatient (BNVA) | payer OTHER, SELFPAY | PROVIDERS: PCP Family Medicine; Visit Provider Internal Medicine | DX: D50.9 Iron deficiency anemia, unspecified (principal); I25.10 Atherosclerotic heart disease of native coronary artery without angina pectoris | CPT/HCPCS: 82607; 82784; 83516; 83550; 85045 ==

== ENCOUNTER → 2021-04-16 09:13 | Outpatient (BNVA) | payer OTHER, SELFPAY | PROVIDERS: PCP Family Medicine; Visit Provider Internal Medicine | DX: D89.9 Disorder involving the immune mechanism, unspecified (principal); Z11.52 Encounter for screening for COVID-19; L40.50 Arthropathic psoriasis, unspecified; Z01.812 Encounter for preprocedural laboratory examination; D50.9 Iron deficiency anemia, unspecified; L40.9 Psoriasis, unspecified; Z51.81 Encounter for therapeutic drug level monitoring; Z79.899 Other long term (current) drug therapy | CPT/HCPCS: 36415; 80053; 85025; 85651; 86140; 87635 ==

== ENCOUNTER 2021-04-22 07:22 | Day surgery (SDC) | payer OTHER, SELFPAY ==
[2021-04-17 13:51] VITALS: BMI 33.6
--- NOTE | 2021-04-22 07:24 | P.HP_ITS ---
Same Day Surgery H&P Indication for Procedure/HPI DATE OF PROCEDURE: April 22, 2021 CHIEF COMPLAINT/INDICATIONFOR SURGICAL PROCEDURE: Microcytic anemia PREOP DIAGNOSIS: Microcytic anemia PLANNED PROCEDRUE: Operation Date: 04/22/21 08:45 Proposed Procedures p Colonoscopy 18682 D50.9(Not Applicable) - Jose Winn MD Medications/Allergies* Home Medications Medication Instructions Recorded Confirmed Type ferrous sulfate 325 mg PO BID 03/11/21 04/17/21 History metoprolol tartrate 25 mg tablet 25 mg PO BID tab 03/22/21 04/17/21 History duloxetine 20 mg PO BEDTIME 04/17/21 04/17/21 History Allergies/Adverse Reactions Allergy/AdvReac Type Severity Reaction Status Date / Time No Known Allergies Allergy Verified 04/15/21 15:21 Pertinent History/Comorbid Conditions* Medical History (Updated 04/15/21 @ 16:00 by Rell Harmon M.D) Atherosclerosis of coronary artery Generalized osteoarthritis Immunosuppression Microcytic anemia Psoriasis Psoriatic arthritis ST elevation MD (STEMI) Social History Smoking and tobacco status: former smoker Alcohol intake: current Alcohol intake frequency: few times a month Alcohol type: beer Marital status: Number of children: 2 Current occupational status: employed 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
[2021-04-22 07:55] VITALS: BP 126/88; PULSE 94; RESP 18; TEMP 36.5; O2SAT 96
[2021-04-22] MEDS: sodium chloride 0.9% 1,000 ML 30 ML IV (08:05)
--- NOTE | 2021-04-22 08:19 | P.ANESASSM_ITS ---
Pre-Anesthetic Assessment Pre-Anesthetic Assessment: Height/Weight: Height 1.6 m Weight 86.183 kg Temp Pulse Resp BP Pulse Ox 97.7 F 94 18 126/88 96 04/22/21 07:55 04/22/21 07:55 04/22/21 07:55 04/22/21 07:55 04/22/21 07:55 Preop Diagnosis: microcytic anemia Proposed Procedure: Operation Date: 04/22/21 08:45 Proposed Procedures p Colonoscopy 90071 D50.9(Not Applicable) - Jose Winn MD Was Beta Belinda taken within 24 hours: Yes Was Clonidine taken within 24 hours: N/A Last intake: Intake Last Liquid Date 04/21/21 Last Liquid Time 22:30 Last Solid Date 04/20/21 Last Solid Time 17:30 Social: Social History: Tobacco Exam: Pre-Anes Outpt Exam: alert, oriented x 3, clear to auscultation bilaterally and regular rate & rhythm Airway: Submandibular: WNL Cervical ROM: WNL MP: 2 Pulmonary: Pulmonary: COPD CV/HEM: CV/HEM: CAD and HTN Neuropsych: Neuropsych: Depression Anesthetic Plan: ASA status: 3 Anesthesia: Anesthesia Evaluation and MAC Risk of > 500 ml blood loss (7ml/kg in children): No Meds/Allergies Current Medications: Current Medications Generic Name Dose Route Start Last Admin Trade Name Freq PRN Reason Stop Dose Admin Sodium Chloride 1,000 mls @ 30 ml s/hr 04/22/21 07:45 04/22/21 08:05 Sodium Chloride 0.9% IV 30 mls/hr .Q24H JUDI Administration PFSH Anesthesia PFSH: Medical History Atherosclerosis of coronary artery Generalized osteoarthritis Immunosuppression Microcytic anemia Psoriasis Psoriatic arthritis ST elevation [place] (STEMI) Social History Smoking and tobacco status: former smoker Alcohol intake: current Alcohol intake frequency: few times a month Alcohol type: beer Marital status: Number of children: 2 Current occupational status: employed 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
[2021-04-22 09:10] VITALS: BP 101/72; PULSE 89; RESP 18; TEMP 36.3; O2SAT 100
--- NOTE | 2021-04-22 12:25 | ANE.PACU2 ---
Inpatient post-anesthesia follow up: Airway intact: Yes Vital signs: Temperature 97.4 F Pulse Rate 89 Respiratory Rate 18 Blood Pressure 101/72 Pulse Oximetry 100 Oxygen Delivery Me thod Room Air Oxygen Flow Rate Fraction of Inspir ed Oxygen Hydration adequate: Yes Nausea and vomiting: No Pain level: 1 Mental status: Baseline
[2021-04-23 05:55] LABS: H. Pylori / CLO Test Negative
== END 2021-04-22 09:42 | disposition home or self-care (01) ==
PROVIDERS: PCP Family Medicine; Visit Provider Internal Medicine
PROC: 0DJD8ZZ Inspection of Lower Intestinal Tract, Via Natural or Artificial Opening Endoscopic (ICD-10-PCS; CPT 45378; principal; 2021-04-22 08:45)
PROC: 0DJ08ZZ Inspection of Upper Intestinal Tract, Via Natural or Artificial Opening Endoscopic (ICD-10-PCS; CPT 43235; 2021-04-22 08:45)
DX: D50.9 Iron deficiency anemia, unspecified (principal); K52.9 Noninfective gastroenteritis and colitis, unspecified; J44.9 Chronic obstructive pulmonary disease, unspecified; I25.10 Atherosclerotic heart disease of native coronary artery without angina pectoris; I10 Essential (primary) hypertension; F32.9 Major depressive disorder, single episode, unspecified; Z87.891 Personal history of nicotine dependence; I25.2 Old myocardial infarction
CPT/HCPCS: 43239; 45380; 82274; 83630; 87077; 87493; 87506; 88305; 96360; 96361; J2704; J7030

== ENCOUNTER → 2021-05-27 08:47 | Outpatient (BNVA) | payer OTHER, SELFPAY | PROVIDERS: PCP Family Medicine; Visit Provider Internal Medicine | DX: D50.9 Iron deficiency anemia, unspecified (principal); D89.9 Disorder involving the immune mechanism, unspecified; L40.50 Arthropathic psoriasis, unspecified; Z51.81 Encounter for therapeutic drug level monitoring; Z79.899 Other long term (current) drug therapy | CPT/HCPCS: 80053; 85025; 85651; 86140; 86480 ==

== ENCOUNTER → 2021-05-29 13:47 | Outpatient (BNVA) | payer OTHER, SELFPAY | PROVIDERS: PCP Family Medicine; Visit Provider Internal Medicine | DX: L40.50 Arthropathic psoriasis, unspecified (principal); L40.9 Psoriasis, unspecified; K52.9 Noninfective gastroenteritis and colitis, unspecified; M15.9 Polyosteoarthritis, unspecified; Z51.81 Encounter for therapeutic drug level monitoring; Z87.891 Personal history of nicotine dependence | CPT/HCPCS: 99214 ==

== ENCOUNTER 2021-07-02 09:26 | Outpatient (CLI) | payer OTHER, SELFPAY ==
[2021-07-02 09:55] LABS: Basophils # 0.1 10^3/uL (0.0-0.1); Eosinophils # 0.3 10^3/uL (0.0-0.8); Eosinophils % 4.4 %; Hematocrit 36.8 % (37.0-47.0); Lymphocytes # 1.3 10^3/uL (0.8-4.8); Lymphocytes % 18.4 %; Mean Corpuscular HGB Conc 29.9 g/dL (30.0-36.0); Mean Corpuscular Hemoglobin 22.1 pg (28.0-34.0); Mean Corpuscular Volume 73.9 fl (81-99); Mean Platelet Volume 8.8 fL (7.4-10.4); Monocytes # 0.3 10^3/uL (0.2-0.9); Monocytes % 4.3 %; Neutrophils # 5.17 10^3/uL (1.8-7.7); Neutrophils % 71.6 %; Nucleated Red Blood Cells % 0 %; Platelet Count 412 10^3/cmm (130-400); Red Blood Count 4.98 10^6/uL (4.1-5.3); Red Cell Distribution Width 18.5 % (12.1-15.1); White Blood Count 7.2 10^3/uL (4.0-10.0)
[2021-07-02 11:01] LABS: Ferritin 102 ng/mL (15-150); Iron 24 ug/dL (37-145); Total Iron Binding Capacity 266 mcg/dl; Unsaturated Iron Binding 242 ug/dL (112-347)
--- NOTE | 2021-07-02 14:42 | ONC CON_ITS ---
Dr. Fatima New Patient Note Patient: Jayla Alvarez Unit #: [id number]: 1970 Dicatated By: Tracie Fatima M.D.Date of Visit: Jul 02, 2021 Onc MED New Patient/Consult Referring Physician: Colt Adams History of Present Illness: Ms. Jayla Alvarez, is a 51-year-old woman with history of iron deficiency anemia since age 12 or 13, as per patient she has been taking oral iron off and on since then, but remained anemic, never required blood transfusion, never tried parenteral iron. As per patient her PMD discontinued oral iron on June 04, 2021 as she was told is not' working'. Her lab work-up done in her PMDs office on March 21, 2021 showed white blood count 8.9 hemoglobin 11.2 g hematocrit 36.7 MCV 71 platelets 551 CMP within normal limits iron saturation 7%, iron 20, ferritin 85, TIBC 290 3 repeat CBC on April 24, 2021 showed white blood count 5.9 hemoglobin 10.7 hematocrit 32.7 MCV 68 platelets 586, iron saturation 9% iron 21 TIBC 245, patient was on ferrous sulfate 2 tablets p.o. daily for over 1 year till June 04, 2021 when it was discontinued by PMD as her follow-up lab work-up shows persistent iron deficiency anemia. As per patient she underwent EGD and colonoscopy by Dr. Winn in later part of 2020, she was told there was a mild inflammation in her stomach but no malignancy. Patient denies any history of fresh blood per rectum but dark-colored stools probably due to oral iron. Denies any jaundice, denies any hematuria or dysuria, denies any urine or stool color changes, denies any melena hematochezia or hemoptysis or hematemesis, denies any chest pain or palpitation but generalized weakness and fatigue, also complaining of off and on night sweats since menopause occurred in 2009. Denies any peripheral lymphadenopathy denies any peripheral numbness, denies any recurrent fever but fluctuating weight. She has longstanding history of smoking but quit recently. Denies alcohol use. Denies any family history of iron deficiency anemia. Or malignancy Past Medical History: Ms. Alvarez's medical history consists of gestational diabetes, hypertension, psoriatic arthritis, and myocardial infarction in 2020. Past Surgical History: Ms. Alvarez's surgical/procedural history consists of cardiac stent x 2 in 2020, caesarean section in 2003, and tonsillectomy in 1987. Medications: Arava 1 Tablet (of 10 mg) Oral daily, Aspirin 1 Tablet (of 81 mg) Tablet, enteric coated Oral daily, Atorvastatin Calcium 1 Tablet (of 80 mg) Oral at bedtime, Cipro 1 Tablet (of 500 mg) Oral b.i.d., Clopidogrel Bisulfate 1 Tablet (of 75 mg) Oral daily, Cymbalta 1 Capsule (of 20 mg) Capsule Delayed Release Particles Oral at bedtime, Ferrous Sulfate 1 Tablet (of 325 (65 fe) mg) Oral b.i.d., Lisinopril 1 Tablet (of 2.5 mg) Oral daily, Metoprolol Tartrate 0.5 Tablet (of 25 mg) Oral b.i.d., metroNIDAZOLE 1 Tablet (of 500 mg) Oral b.i.d., Pantoprazole Sodium 1 Tablet (of 40 mg) Tablet, enteric coated Oral b.i.d., traMADol HCl 1 Tablet (of 50 mg) Oral q 8 hours PRN Allergies: No Known Allergies. Social History: Ms. Alvarez is single. She quit smoking 1 year ago but had smoked for 35 years. She is an active drinker. Family History: There is no documented family history. Review Of Symptoms: Review of Systems is not available for this patient. Vital Signs: Performed on Jul 02, 2021 11:03: 0, 0.00 (LOW), 94 % (LOW), 74 /min, 17 /min, 154/98 mm(hg) (HIGH), 97.6 F (LOW), and 184.6 lbs (HIGH). Performance Status: 0 - Fully active, able to carry on all predisease activities without restrictions. (ECOG) Physical Examination: ENMT - No mouth sores, no thrush, no jaundice no cervical lymphadenopathy, Respiratory - Lungs are clear to auscultation, Cardiovascular - Regular rate and rhythm of heart, Abdomen - Soft, bowel sounds present, Extremities - No visible edema. Lab/Imaging: Most recent lab results are not available for this patient. Impression: Microcytic/hypochromic anemia most likely due to iron deficiency plus minus hemoglobinopathy like thalassemia minor, iron deficiency could be due to iron malabsorption or chronic blood loss probably from small bowel as EGD and colonoscopy done in latter part of 2020 showed no obvious source of blood loss. Lab work-up done on March 21, 2021 showed white blood count 8.9 hemoglobin 11.2 hematocrit 36.7 MCV 71, platelets 551,000 iron saturation 7% iron 20, TIBC 293, ferritin 85, Repeat CBC while on oral iron for over 1 year done on April 24, 2021 showed white blood count 5.9 hemoglobin 10.7 hematocrit 32.7 platelets 586,000 MCV 68 iron saturation 9% iron 21 TIBC 245 ferritin 115 Mild thrombocytosis, probably due to iron deficiency or chronic inflammation Generalized weakness and fatigue, probably due to iron deficiency EGD done on April 22, 2021 showed moderate chronic striped gastritis, erythematous and erosive but there was no mucosal bleeding rest of the exam unremarkable colonoscopy done on April 22, 2021 showed moderate diffuse inflammation, the colitis had specific findings erythematous, erythematous, granular and friable, ulcerative but no mucosal bleeding. Psoriatic arthritis, diagnosed in June 2011, History of coronary artery disease status post myocardial infarction status post cardiac stent x2 in February 2021 Hypertension Gestational diabetes. Plan: Discussed with patient regarding her labs, white blood count 7.2 hemoglobin 11 g medical 36.8 platelets 412,000 MCV 73.9, iron saturation 9%, ferritin 102, iron 24, TIBC 266 Clinically, patient is doing reasonably well now with generalized weakness and fatigue which could be multifactorial including due to iron deficiency and mild anemia. Etiology of iron deficiency could be multifactorial including but not limited to iron malabsorption or chronic blood loss from small bowel as per patient EGD and colonoscopy done in later part of 2020 showed no obvious source of bleeding, no malignancy. Possibility could be small bowel pathology like AVMs. Her anemia work-up showed persistent low iron saturation and serum iron but ferritin is in normal range which could be due to chronic inflammation like psoriatic arthritis, At this point, will consider parenteral iron Injectafer 750 mg IV weekly x2, all the side effect possible benefits associated with parenteral iron including but not limited to headaches, nausea vomiting, allergic reaction were mentioned, further teaching was done by chemotherapy nurse, will obtain approval from her insurance and then she will return to clinic 1 month after 2nd dose of Injectafer infusion with CBC and iron studies. Return to clinic in 1 month with CBC and iron studies. We will also check B12 level and reticulocyte count, if B12 is low, will consider supplement. Signed By: Tracie Fatima M.D. <<Signature on File>>
== END 2021-07-02 09:27 | disposition home or self-care (01) ==
LOC: ONCMED 09:29
PROVIDERS: PCP Family Medicine; Visit Provider Internal Medicine Hematology & Oncology
DX: D50.9 Iron deficiency anemia, unspecified (principal); D75.839 Thrombocytosis, unspecified; I10 Essential (primary) hypertension; I25.2 Old myocardial infarction; Z79.899 Other long term (current) drug therapy; Z79.82 Long term (current) use of aspirin; Z87.891 Personal history of nicotine dependence
CPT/HCPCS: 36415; 82728; 83540; 83550; 85025; 99205

== ENCOUNTER 2021-07-02 12:41 | Outpatient (CLI) | payer OTHER, SELFPAY ==
--- NOTE | 2021-07-02 12:51 | XR_ITS ---
WS: [email or web address] Right hand, 2 views, 07/02/2021 Clinical Data: K52.9 - Noninfective gastroenteritis and colitis, unspeci... Comparison: Right hand, 04/01/2010. Findings: No fractures or dislocations are seen. The soft tissues are unremarkable. The joint space s are normal No periarticular demineralization or calcifications are seen. XR/XR hand RT 2V [id number] Impression: Negative right hand.
--- NOTE | 2021-07-02 12:51 | XR_ITS ---
WS: [email or web address] Lateral views of cervical spine in the flexion, extension and neutral positions. 07/02/2021 Clinical Data: K52.9 - Noninfective gastroenteritis and colitis, unspeci... Comparison: None. Findings: There is no prevertebral soft tissue swelling. The disc heights are normal. No compression fractures are seen. On flexion and extension there is no limitation of motion or subluxation. XR/XR cervical spine fl/ex [id number] Impression: 1. Negative lateral cervical spine. 2. Negative for limitation of motion or subluxation on flexion or extension.
--- NOTE | 2021-07-02 12:51 | XR_ITS ---
WS: [email or web address] LEFT SHOULDER: 2 VIEW(S) TECHNIQUE: Internal and external rotation. HISTORY: M06.9 - Rheumatoid arthritis, unspecified COMPARISON: None available. No fracture or dislocation or soft tissue abnormality. Glenohumeral and AC joints are unremarkable. No erosions involving the clavicle. XR/XR shoulder LT min 2V* [id number] IMPRESSION: Negative LEFT shoulder.
--- NOTE | 2021-07-02 12:51 | XR_ITS ---
WS: [email or web address] Lumbar spine, 3 views, 07/02/2021 Clinical Data: K52.9 - Noninfective gastroenteritis and colitis, unspeci... Comparison: Lumbar spine, 04/01/2010. Findings: No compression fractures or subluxation is seen. There is degenerative disc narrowing at L3-L4, L4-L5 and L5-S1 with accompanying osteophyte formation. There is facet joint arthritis from L3 through L5. The transverse processes and SI joints are normal. There is the degenerative change at T9-T10. XR/XR lumbar spine 2-3V* [id number] Impression: 1. Osteoarthritis at T9-T10 and L3-S1 unchanged. 2. Facet joint arthritis L3-S1 unchanged.
--- NOTE | 2021-07-02 12:51 | XR_ITS ---
WS: [email or web address] Right shoulder, 2 views, 07/02/2021 Clinical Data: K52.9 - Noninfective gastroenteritis and colitis, unspeci... Comparison: None. Findings: No fractures or dislocations are seen. The AC joint is normal. The adjacent right clavicle, right sca pula and ribs are normal. The soft tissues are unremarkable. XR/XR shoulder RT min 2V* [id number] Impression: Negative right shoulder.
--- NOTE | 2021-07-02 12:51 | XR_ITS ---
WS: [email or web address] Left hand, 2 views, 07/03/2021 Clinical Data: K52.9 - Noninfective gastroenteritis and colitis, unspeci... Comparison: Left hand, 04/01/2010. Findings: No fractures or dislocations are seen. The soft tissues are unremarkable. There is osteoarthritic marisa nge of the left first MCP joint. XR/XR hand LT 2V [id number] Impression: Minimal osteoarthritis left first MCP joint.
--- NOTE | 2021-07-02 12:51 | XR_ITS ---
WS: [email or web address] Sacroiliac joints, 3 views, 07/02/2021 Clinical Data: L40.9 - Psoriasis, unspecified Comparison: None. Findings: The SI joints are normal in width. No erosion, sclerosis or destruction is seen. There are no fractur es or dislocations. There is degenerative disc narrowing at L5-S1. XR/XR sacroiliac jts m 3V [id number] Impression: Negative SI joints.
[2021-07-02 13:35] LABS: Basophils # 0.1 10^3/uL (0.0-0.1); Basophils % 1.1 %; Eosinophils # 0.3 10^3/uL (0.0-0.8); Eosinophils % 4.1 %; Hematocrit 36.9 % (37.0-47.0); Hemoglobin 11.1 g/dL (11.5-15.3); Lymphocytes # 1.5 10^3/uL (0.8-4.8); Lymphocytes % 22.8 %; Mean Corpuscular HGB Conc 30.1 g/dL (30.0-36.0); Mean Corpuscular Hemoglobin 22.3 pg (28.0-34.0); Mean Corpuscular Volume 74.2 fl (81-99); Monocytes # 0.3 10^3/uL (0.2-0.9); Neutrophils # 4.39 10^3/uL (1.8-7.7); Neutrophils % 66.8 %; Nucleated Red Blood Cells % 0 %; Platelet Count 424 10^3/cmm (130-400); Red Blood Count 4.97 10^6/uL (4.1-5.3); Red Cell Distribution Width 18.6 % (12.1-15.1); White Blood Count 6.6 10^3/uL (4.0-10.0)
[2021-07-02 14:28] LABS: Alanine Aminotransferase 12 U/L (0-33); Albumin Level 3.9 g/dL (3.5-5.2); Alkaline Phosphatase 159 IU/L (35-105); Anion Gap 17.9 (5-19); Aspartate Amino Transferase 10 U/L (0-32); Blood Urea Nitrogen 5 mg/dL (6-20); Calcium 8.5 mg/dL (8.5-10.5); Carbon Dioxide 23 mmol/L (22-29); Chloride 99 mmol/L (98-107); Globulin 4.4 g/dL (1.3-4.6); Glucose 123 mg/dL (65-115); Osmolality Calculated 283 mOsm/kg (285-295); Sodium 137 mmol/L (136-145); Total Bilirubin 0.4 mg/dL (0.15-1.2); Total Protein 8.3 g/dL (6.6-8.7)
[2021-07-02 14:34] LABS: Potassium 2.9 mmol/L (3.5-5.1)
== END 2021-07-02 12:42 | disposition home or self-care (01) ==
LOC: RAD 12:47
PROVIDERS: PCP Family Medicine; Visit Provider Internal Medicine
DX: D89.9 Disorder involving the immune mechanism, unspecified (principal); K52.9 Noninfective gastroenteritis and colitis, unspecified; L40.50 Arthropathic psoriasis, unspecified; M15.9 Polyosteoarthritis, unspecified; Z51.81 Encounter for therapeutic drug level monitoring; L40.9 Psoriasis, unspecified; M06.9 Rheumatoid arthritis, unspecified
CPT/HCPCS: 72040; 72100; 72202; 73030; 73120; 80053; 85025

== ENCOUNTER → 2021-07-08 17:02 | Outpatient (BNVA) | payer OTHER, SELFPAY | PROVIDERS: PCP Family Medicine; Visit Provider Nurse Practitioner Family | DX: Z20.822 Contact with and (suspected) exposure to COVID-19 (principal) | CPT/HCPCS: 87635 ==

== ENCOUNTER 2021-07-15 13:15 | Outpatient (CLI) | payer OTHER, SELFPAY ==
--- NOTE | 2021-07-15 14:00 | CT_ITS ---
WS: [id number] CT ABDOMEN AND PELVIS WITH CONTRAST HISTORY: post prandial abdominal pain and diarrhea TECHNIQUE: Imaging performed of the abdomen and pelvis with IV contrast. Single phase imaging of the abdomen. Coronal and sagittal reformats are submitted. All CT scans at [facility] use at [facility] [facility] one of these dose optimization techniques: automated exposure control; mA and/or kV adjustment per patient size (includes targeted exams where dose is matched to clinical indication); or iterative re construction. IV CONTRAST: Omnipaque 300; 95 mL IV. Oral contrast: Yes. DLP: 1776.15 mGy.cm COMPARISON: None available. Lower thorax: Lung bases are clear. Heart is normal size. No hiatal hernia. Liver/biliary system: Normal size with no intrahepatic dilatation. Gallbladder: Normal. No gallstones or wall thickening. No pericholecystic fluid. Pancreas: Normal size pancreas and pancreatic duct. No adjacent inflammation. Spleen: Normal size spleen. No mass or infarct. Adrenal glands: Normal. Right kidney: Normal. Left kidney: Normal. Aorta: Mild atherosclerosis with no aneurysm. Lymphadenopathy: There are small mesenteric, RIGHT lower quadrant and retroperitoneal lymph nodes. Th hever lymph nodes are all less than a centimeter. Free fluid: Small amount of free fluid in the cul-de-sac. Fluid is slightly greater to the RIGHT of m idline. GI tract: The appendix is normal. Mild increased fat in the region of the terminal ileum. There is in creased fluid within the colon. No obstructive pattern. There is submucosal edema most significantly visualized within the descending and sigmoid colon. No obstruction is evident. No small bowel strictu re. Abdominal wall: Unremarkable abdominal wall. No hernia. Pelvis: Small amount of free fluid in the RIGHT pelvis. Normal urinary bladder. Bones: Degenerative disc disease at L4-5 and L5-S1 is mild. CT/CT abdomen pelvis w con* [id number] IMPRESSION: 1. Normal appendix. 2. Mild submucosal edema intermittently visualized, predominantly within the d istal colon. Consider inflammatory bowel disease such as ulcerative colitis as a possible etiology. No small bowel strictures. 3. There are a few very small mesenteric, RIGHT lower quadrant and retroperito cookie lymph nodes with may be reactive. These are not significantly enlarged.
[2021-07-15] MEDS: iohexol 300 mg/mL 100 mL Btl IV (14:52)
[2021-07-15] MEDS: iohexol 300 mg/mL 50 mL Btl PO (14:52)
== END 2021-07-15 13:16 | disposition home or self-care (01) ==
LOC: RAD 13:19
PROVIDERS: PCP Family Medicine; Visit Provider Internal Medicine
DX: R10.9 Unspecified abdominal pain (principal); R19.7 Diarrhea, unspecified
CPT/HCPCS: 74177

== ENCOUNTER → 2021-07-18 08:51 | Day surgery (SDC) | payer OTHER, SELFPAY ==
[2021-07-18] MEDS: ferric carboxy (IVPB) 750 MG in sodium chloride 0.9% (100 ml) 100 ML 250 MG IV (09:25)
[2021-07-18 09:45] VITALS: BP 121/82; PULSE 83; RESP 18; TEMP 36.5; O2SAT 96; BMI 32.4
== END ==
LOC: GILAB 08:57
PROVIDERS: PCP Family Medicine; Visit Provider Internal Medicine
DX: K90.9 Intestinal malabsorption, unspecified (principal)
CPT/HCPCS: 96365; J1439

== ENCOUNTER → 2021-07-25 09:03 | Day surgery (SDC) | payer OTHER, SELFPAY ==
[2021-07-25] MEDS: ferric carboxy (IVPB) 750 MG in sodium chloride 0.9% (100 ml) 100 ML 345 MG IV (09:29)
[2021-07-25 09:32] VITALS: BP 155/107; PULSE 85; RESP 18; TEMP 36.5; O2SAT 96
== END ==
PROVIDERS: PCP Family Medicine; Visit Provider Internal Medicine
DX: K90.9 Intestinal malabsorption, unspecified (principal)
CPT/HCPCS: 96365; J1439

== ENCOUNTER 2021-09-04 09:20 | Outpatient (CLI) | payer OTHER, MEDICAID, SELFPAY ==
--- NOTE | 2021-09-04 09:30 | US_ITS ---
WS: [id number] RIGHT UPPER QUADRANT ULTRASOUND HISTORY: post prandial pain COMPARISON: None available. Liver: 14.7 cm in length. Normal size liver. No bile duct dilatation or mass. Portal Vein: Normal hepatopetal flow with monophasic waveform. Gallbladder: Normally distended gallbladder with no stones or wall thickening. CBD: 0.4 cm Pancreas: Normal size and echogenicity. Right kidney: 10.5 cm in length. Normal size and echogenicity. No hydronephrosis or mass. Aorta and IVC: Unremarkable abdominal aorta and IVC. No ascites. US/US gall bladder [id number] IMPRESSION: Normal RIGHT upper quadrant ultrasound.
== END 2021-09-04 09:21 | disposition home or self-care (01) ==
LOC: RAD 09:20
PROVIDERS: PCP Family Medicine; Visit Provider Internal Medicine
DX: R10.11 Right upper quadrant pain (principal)
CPT/HCPCS: 76705

== ENCOUNTER → 2021-09-05 16:56 | Outpatient (BNVA) | payer OTHER, SELFPAY | PROVIDERS: PCP Family Medicine; Visit Provider Internal Medicine | DX: K90.9 Intestinal malabsorption, unspecified (principal); K58.9 Irritable bowel syndrome, unspecified | CPT/HCPCS: 83550 ==

== ENCOUNTER 2021-09-13 16:00 | Outpatient (CLI) | payer OTHER, MEDICAID, SELFPAY ==
[2021-09-13 16:28] LABS: Basophils # 0.1 10^3/uL (0.0-0.1); Basophils % 0.9 %; Eosinophils # 0.4 10^3/uL (0.0-0.8); Eosinophils % 6.6 %; Hematocrit 36.5 % (37.0-47.0); Hemoglobin 11.5 g/dL (11.5-15.3); Lymphocytes # 1.6 10^3/uL (0.8-4.8); Lymphocytes % 27.7 %; Mean Corpuscular HGB Conc 31.5 g/dL (30.0-36.0); Mean Corpuscular Hemoglobin 25.4 pg (28.0-34.0); Mean Corpuscular Volume 80.6 fl (81-99); Mean Platelet Volume 9.3 fL (7.4-10.4); Monocytes # 0.4 10^3/uL (0.2-0.9); Monocytes % 7.8 %; Neutrophils % 56.8 %; Nucleated Red Blood Cells % 0 %; Platelet Count 426 10^3/cmm (130-400); Red Blood Count 4.53 10^6/uL (4.1-5.3); Red Cell Distribution Width 18.6 % (12.1-15.1); White Blood Count 5.6 10^3/uL (4.0-10.0)
[2021-09-13 16:41] LABS: Erythrocyte Sedimentation Rate 75 mm/hr (0-15)
[2021-09-13 16:51] LABS: Alanine Aminotransferase 41 U/L (0-33); Alkaline Phosphatase 195 IU/L (35-105); Anion Gap 13.7 (5-19); Aspartate Amino Transferase 25 U/L (0-32); Blood Urea Nitrogen 9 mg/dL (6-20); C Reactive Protein 50.1 mg/L (0.0-4.9); Calcium 9.3 mg/dL (8.5-10.5); Carbon Dioxide 27 mmol/L (22-29); Chloride 100 mmol/L (98-107); Globulin 4.8 g/dL (1.3-4.6); Glomerular Filtration Rate 87.9 mL/min (90-130); Glucose 89 mg/dL (65-115); Osmolality Calculated 280 mOsm/kg (285-295); Potassium 4.7 mmol/L (3.5-5.1); Sodium 136 mmol/L (136-145); Total Bilirubin 0.2 mg/dL (0.15-1.2); Total Protein 8.8 g/dL (6.6-8.7)
== END 2021-09-13 16:01 | disposition home or self-care (01) ==
PROVIDERS: PCP Family Medicine; Visit Provider Internal Medicine
DX: Z51.81 Encounter for therapeutic drug level monitoring (principal); L40.50 Arthropathic psoriasis, unspecified; L40.9 Psoriasis, unspecified; Z79.899 Other long term (current) drug therapy
CPT/HCPCS: 80053; 85025; 85651; 86140

== ENCOUNTER 2021-10-22 12:23 | Outpatient (CLI) | payer OTHER, MEDICAID, SELFPAY ==
[2021-10-22 13:42] LABS: Basophils # 0.1 10^3/uL (0.0-0.1); Eosinophils # 0.1 10^3/uL (0.0-0.8); Eosinophils % 2.2 %; Hematocrit 38.5 % (37.0-47.0); Hemoglobin 11.8 g/dL (11.5-15.3); Lymphocytes # 1.2 10^3/uL (0.8-4.8); Lymphocytes % 18.7 %; Mean Corpuscular HGB Conc 30.6 g/dL (30.0-36.0); Mean Corpuscular Hemoglobin 25.4 pg (28.0-34.0); Mean Corpuscular Volume 82.8 fl (81-99); Mean Platelet Volume 9.3 fL (7.4-10.4); Monocytes # 0.4 10^3/uL (0.2-0.9); Neutrophils # 4.44 10^3/uL (1.8-7.7); Neutrophils % 70.8 %; Nucleated Red Blood Cells % 0 %; Platelet Count 402 10^3/cmm (130-400); Red Blood Count 4.65 10^6/uL (4.1-5.3); Red Cell Distribution Width 15.1 % (12.1-15.1); White Blood Count 6.3 10^3/uL (4.0-10.0)
[2021-10-22 14:17] LABS: Alanine Aminotransferase 13 U/L (0-33); Albumin Level 3.9 g/dL (3.5-5.2); Alkaline Phosphatase 171 IU/L (35-105); Anion Gap 16.8 (5-19); Aspartate Amino Transferase 11 U/L (0-32); Blood Urea Nitrogen 12 mg/dL (6-20); Calcium 9.1 mg/dL (8.5-10.5); Carbon Dioxide 25 mmol/L (22-29); Chloride 102 mmol/L (98-107); Creatine Phosphokinase 50 U/L (26-192); Globulin 5.7 g/dL (1.3-4.6); Glucose 127 mg/dL (65-115); Osmolality Calculated 291 mOsm/kg (285-295); Potassium 3.8 mmol/L (3.5-5.1); Sodium 140 mmol/L (136-145); Total Bilirubin 0.3 mg/dL (0.15-1.2); Total Protein 9.6 g/dL (6.6-8.7)
== END 2021-10-22 12:24 | disposition home or self-care (01) ==
LOC: ONCMED 12:26
PROVIDERS: Internal Medicine; PCP Family Medicine; Visit Provider Nurse Practitioner Family
DX: D50.9 Iron deficiency anemia, unspecified (principal); D75.89 Other specified diseases of blood and blood-forming organs
CPT/HCPCS: 36415; 80053; 82550; 85025

== ENCOUNTER → 2022-02-05 09:24 | Outpatient (BNVA) | payer OTHER, SELFPAY | PROVIDERS: PCP Family Medicine; Visit Provider Internal Medicine | DX: L40.50 Arthropathic psoriasis, unspecified (principal); Z51.81 Encounter for therapeutic drug level monitoring | CPT/HCPCS: 80053; 81001; 82306; 82550; 82607; 83735; 84100; 84439; 84443; 85025; 85651; 86140; 87077; 87086; 87186 ==

== ENCOUNTER 2022-04-17 11:23 | Outpatient (CLI) | payer OTHER, SELFPAY ==
--- NOTE | 2022-04-17 11:32 | XR_ITS ---
WS: [id number] Left knee, 3 views, 04/17/2022 Clinical Data: PAIN IN BILATERAL KNEES Comparison: Left knee, 05/06/2018. Findings: There is medial joint compartment narrowing with spurring of the medial tibial plateau and medial fem oral condyle. There is posterior patellar spurring. There are no fractures or dislocations. Vascular calcifications are seen. XR/XR knee LT 3V* [id number] Impression: Moderate osteoarthritis of the left knee. Kellgren-Grayson Classification: grade 3 (moderate): moderate multiple osteoph ytes, definite narrowing of joint space and some sclerosis and possible deformi ty of bone ends
--- NOTE | 2022-04-17 11:39 | XR_ITS ---
WS: [email or web address] Right knee, 3 views, 04/17/2022 Clinical Data: PAIN IN BILATERAL KNEES Comparison: Right knee, 05/06/2018. Findings: Is medial joint compartment narrowing with sclerosis of the medial tibial plateau. There are osteophy carly of the medial femoral condyle and medial tibial plateau. The posterior right patella shows irregu larity and spurring. There are no fractures or dislocations. There are vascular calcifications. XR/XR knee RT 3V* [id number] Impression: Moderate osteoarthritis of the right knee. Kellgren-Grayson Classification: grade 3 (moderate): moderate multiple osteoph ytes, definite narrowing of joint space and some sclerosis and possible deformi ty of bone ends
== END 2022-04-17 11:24 | disposition home or self-care (01) ==
PROVIDERS: PCP Family Medicine; Visit Provider Family Medicine
DX: M17.0 Bilateral primary osteoarthritis of knee (principal)
CPT/HCPCS: 73562

== ENCOUNTER → 2022-05-07 08:31 | Outpatient (BNVA) | payer OTHER, SELFPAY | PROVIDERS: PCP Family Medicine; Visit Provider Specialist | DX: M17.0 Bilateral primary osteoarthritis of knee (principal); E66.9 Obesity, unspecified; K02.9 Dental caries, unspecified; Z68.32 Body mass index [BMI] 32.0-32.9, adult | CPT/HCPCS: 73560; 73565 ==

== ENCOUNTER 2022-05-08 11:52 | Outpatient (CLI) | payer OTHER, MEDICAID, SELFPAY ==
--- NOTE | 2022-05-08 11:56 | MM_ITS ---
WS: [id number] SCREENING DIGITAL TOMOSYNTHESIS MAMMOGRAM WITH CAD HISTORY: SCREENING COMPARISON: 08/23/2020 and 02/12/2018 Bilateral CC and MLO with tomosynthesis views submitted. Synthetic mammography reviewed. Computer aid ed detection analyzed. Breast composition: There are scattered areas of fibroglandular density. No suspicious masses, microc alcifications or architectural distortion. MM/[place] [id number] IMPRESSION: BI-RADS: 1-Negative FOLLOW UP: 1 Year Follow-up
--- NOTE | 2022-05-08 12:04 | CT_ITS ---
WS: [email or web address] LDCT LUNG CANCER SCREENING HISTORY: HX OF TOBACCO USE TECHNIQUE: Axial imaging performed from the apices to 1 cm below the costophrenic angles. Coronal and sagittal reformats are submitted with axial MIP series. All CT scans at [facility] use at least one of these dose optimization techniques: automated exposure control; mA and/or kV adjustment per patient size (includes targeted exams where dose is matched to clinical indication); or iterativ e reconstruction. DLP: 83.13 mGy.cm DIvol: Mean CTDIvol: 1.60 (mGy),Mean CTDIvol: 1.60 (mGy) COMPARISON: None available. Diagnostic quality: Satisfactory Lung Nodules: There are several noncalcified bilateral 3 mm pulmonary nodules. RIGHT upper lobe pulmo nary nodules and LEFT lower lobe pulmonary nodules. There is a nodule measuring 3 mm surrounded by ve ry mild groundglass attenuation in the LEFT upper lobe. No endobronchial lesions. Lungs: No abnormality. Heart: Normal size heart. Moderate coronary artery atherosclerotic calcifications. No pericardial eff usion. Other findings: Very mild atherosclerosis aorta. No adenopathy. Very small hiatal hernia. CT/CT lung screening [id number] IMPRESSION: LUNG-RADS: 2-Benign Appearance or Behavior FOLLOW UP: 12 Month: Continue annual screening with LDCT OTHER FINDINGS (S MODIFIER): None.
== END 2022-05-08 11:53 | disposition home or self-care (01) ==
PROVIDERS: PCP Family Medicine; Visit Provider Family Medicine
DX: Z12.31 Encounter for screening mammogram for malignant neoplasm of breast (principal); Z12.2 Encounter for screening for malignant neoplasm of respiratory organs; Z87.891 Personal history of nicotine dependence
CPT/HCPCS: 71271; 77063; 77067

== ENCOUNTER 2022-05-28 14:00 | Oncology outpatient (recurring) (ONCR) | payer OTHER, SELFPAY ==
[2022-05-12 12:00] LABS: Reticulocyte % 1.1 % (0.5-2.0)
[2022-05-12 12:10] LABS: Ferritin 408 ng/mL (15-150); Iron 20 ug/dL (37-145); Total Iron Binding Capacity 220 mcg/dl; Unsaturated Iron Binding 200 ug/dL (112-347)
[2022-05-12 12:22] LABS: Basophils # 0.1 10^3/uL (0.0-0.1); Basophils % 0.7 %; Eosinophils # 0.2 10^3/uL (0.0-0.8); Eosinophils % 2.5 %; Hemoglobin 10.1 g/dL (11.5-15.3); Lymphocytes # 1.8 10^3/uL (0.8-4.8); Lymphocytes % 26.4 %; Mean Corpuscular HGB Conc 29.7 g/dL (30.0-36.0); Mean Corpuscular Hemoglobin 22.6 pg (28.0-34.0); Mean Corpuscular Volume 76.1 fl (81-99); Monocytes # 0.3 10^3/uL (0.2-0.9); Monocytes % 5.1 %; Neutrophils # 4.37 10^3/uL (1.8-7.7); Nucleated Red Blood Cells % 0 %; Platelet Count 599 10^3/cmm (130-400); Red Blood Count 4.47 10^6/uL (4.1-5.3); Red Cell Distribution Width 15.9 % (12.1-15.1); White Blood Count 6.7 10^3/uL (4.0-10.0)
[2022-05-12 12:26] LABS: Vitamin B12 1138 pg/mL (232-1245)
[2022-05-28 14:56] LABS: Basophils # 0.1 10^3/uL (0.0-0.1); Basophils % 0.8 %; Eosinophils # 0.3 10^3/uL (0.0-0.8); Eosinophils % 3.8 %; Hematocrit 35.3 % (37.0-47.0); Hemoglobin 10.1 g/dL (11.5-15.3); Lymphocytes # 2.1 10^3/uL (0.8-4.8); Lymphocytes % 27.7 %; Mean Corpuscular HGB Conc 28.6 g/dL (30.0-36.0); Mean Corpuscular Volume 76.7 fl (81-99); Mean Platelet Volume 9.1 fL (7.4-10.4); Monocytes # 0.4 10^3/uL (0.2-0.9); Monocytes % 4.9 %; Neutrophils # 4.77 10^3/uL (1.8-7.7); Neutrophils % 62.5 %; Nucleated Red Blood Cells % 0 %; Platelet Count 565 10^3/cmm (130-400); Red Cell Distribution Width 16.6 % (12.1-15.1); White Blood Count 7.6 10^3/uL (4.0-10.0)
[2022-05-28 15:00] LABS: Erythrocyte Sedimentation Rate 56 mm/hr (0-15)
[2022-05-28 15:20] LABS: Alanine Aminotransferase 15 U/L (0-33); Albumin Level 3.6 g/dL (3.5-5.2); Alkaline Phosphatase 193 U/L (35-105); Anion Gap 14.8 (5-19); Aspartate Amino Transferase 14 U/L (0-32); Blood Urea Nitrogen 11 mg/dL (6-20); C Reactive Protein 68.2 mg/L (0.0-4.9); Calcium 9.3 mg/dL (8.5-10.5); Carbon Dioxide 26 mmol/L (22-29); Chloride 99 mmol/L (98-107); Ferritin 373 ng/mL (15-150); Glomerular Filtration Rate 75.3 mL/min (90-130); Glucose 94 mg/dL (65-115); Iron 29 ug/dL (37-145); Osmolality Calculated 281 mOsm/kg (285-295); Percent Saturation 12.6 % (20-50); Potassium 3.8 mmol/L (3.5-5.1); Sodium 136 mmol/L (136-145); Total Bilirubin 0.2 mg/dL (0.15-1.2); Total Iron Binding Capacity 229 mcg/dl; Total Protein 9.6 g/dL (6.6-8.7); Unsaturated Iron Binding 200 ug/dL (112-347)
== END 2022-05-28 23:59 | disposition home or self-care (01) ==
PROVIDERS: Internal Medicine; PCP Family Medicine; Visit Provider Internal Medicine Hematology & Oncology
DX: D50.9 Iron deficiency anemia, unspecified (principal); M19.90 Unspecified osteoarthritis, unspecified site; Z51.81 Encounter for therapeutic drug level monitoring; Z79.899 Other long term (current) drug therapy; L40.50 Arthropathic psoriasis, unspecified
CPT/HCPCS: 36415; 80053; 82607; 82728; 83021; 83540; 83550; 85014; 85018; 85025; 85041; 85045; 85651; 86140

== ENCOUNTER 2022-05-28 14:06 | Outpatient (CLI) | payer OTHER, SELFPAY ==
--- NOTE | 2022-05-28 15:15 | MR_ITS ---
WS: [id number] MRI LUMBAR SPINE NONCONTRAST HISTORY: M48.062 - Spinal stenosis, low back pain for years. COMPARISON: None available. TECHNIQUE: Sagittal and axial multisequence imaging is submitted. Numerous thoracic and lumbar vertebral body hemangiomas. Normal lumbar alignment with no compression fractures or marrow edema. Disc spaces are narrowed and desiccated. No significant L3-4, L4-5 and L5-S1. No acute fractures. Conus terminates normally at L1-2 disc level. L1-L2: Bilateral facet joint arthritis causing mild foraminal narrowing. L2-L3: Moderate bilateral facet joint and ligamentum flavum arthritis. Mild central and bilateral sub articular recess stenosis. Moderate bilateral foraminal stenosis. L3-L4: Diffuse annular disc bulging with ligamentum flavum disease and facet arthritis. No focal disc protrusions. Mild central and subarticular recess stenosis with moderate bilateral foraminal stenosi s. L4-L5: Mild annular disc bulging with a focal central disc protrusion. Disc is contacting the molina ing L5 nerve roots, LEFT greater than RIGHT. Mild bilateral foraminal stenosis and mild central steno sis. L5-S1: Diffuse osteophytic ridging and annular disc bulging. RIGHT paracentral disc protrusion contac ts the RIGHT lateral thecal sac and the RIGHT S1 nerve root. Mild foraminal narrowing. Small amount of free fluid in the pelvis. MR/MR lumbar spine wo con* [id number] IMPRESSION: 1. Moderate-sized RIGHT paracentral disc protrusion at L5-S1. Disc protrusion contacts the RIGHT S1 nerve root. 2. Mild central and bilateral subarticular recess stenosis with moderate wilson inal stenosis at L2-3. 3. Mild central, bilateral subarticular recess and moderate foraminal stenosis at L3-4. 4. Mild bilateral foraminal and central stenosis at L4-5. Disc contacts the L5 nerve roots bilaterally. 5. Mild foraminal stenosis at L1-2. 6. Due to the multilevel foraminal stenosis the stenoses may in part be congen ital and due to short pedicles. There is facet joint arthritis and ligamentum f lavum arthritis throughout also.
== END 2022-05-28 14:07 | disposition home or self-care (01) ==
LOC: RAD 14:06
PROVIDERS: PCP Family Medicine; Visit Provider Anesthesiology Pain Medicine
DX: M48.062 Spinal stenosis, lumbar region with neurogenic claudication (principal); M51.27 Other intervertebral disc displacement, lumbosacral region
CPT/HCPCS: 72148

== ENCOUNTER 2022-06-26 13:30 | Oncology outpatient (recurring) (ONCR) | payer OTHER, SELFPAY ==
[2022-05-30 10:30] LABS: PROTEIN, TOTAL 9.1 g/dL (6.1-8.1)
[2022-06-02 08:45] LABS: ALBUMIN 3.6 g/dL (3.8-4.8); ALPHA 1 GLOBULIN 0.4 g/dL (0.2-0.3); ALPHA 2 GLOBULIN 1.3 g/dL (0.5-0.9); BETA 1 GLOBULIN 0.5 g/dL (0.4-0.6); BETA 2 GLOBULIN 0.5 g/dL (0.2-0.5); GAMMA GLOBULIN 2.9 g/dL (0.8-1.7)
[2022-06-12] MEDS: sodium chloride 0.9% 250 ML 75 ML IV (15:00)
[2022-06-12] MEDS: acetaminophen 325 mg Tablet 650 MG PO (15:02)
[2022-06-12] MEDS: diphenhydrAMINE 50 mg/mL SDV 1mL 25 MG IVP (15:06)
[2022-06-12] MEDS: iron sucrose 200 MG in sodium chloride 0.9% (100 ml) 100 ML 220 MG IV (15:14)
[2022-06-12 16:07] VITALS: BP 129/84; PULSE 79; RESP 16; TEMP 37; O2SAT 97
[2022-06-16] MEDS: sodium chloride 0.9% 250 ML 50 ML IV (13:42)
[2022-06-16] MEDS: iron sucrose 200 MG in sodium chloride 0.9% (100 ml) 100 ML 220 MG IV (13:48)
[2022-06-16 14:46] VITALS: BP 117/81; PULSE 77; RESP 16; TEMP 36.4; O2SAT 100
[2022-06-18] MEDS: iron sucrose 200 MG in sodium chloride 0.9% (100 ml) 100 ML 220 MG IV (13:38)
[2022-06-18] MEDS: sodium chloride 0.9% 250 ML 100 ML IV (13:41)
[2022-06-18] MEDS: acetaminophen 325 mg Tablet 650 MG PO (13:41)
[2022-06-18] MEDS: diphenhydrAMINE 50 mg/mL SDV 1mL 25 MG IVP (13:42)
[2022-06-24] MEDS: iron sucrose 200 MG in sodium chloride 0.9% (100 ml) 100 ML 220 MG IV (14:06)
[2022-06-24 14:45] VITALS: BP 134/78; PULSE 68; RESP 17; TEMP 36.8; O2SAT 98
[2022-06-26] MEDS: iron sucrose 200 MG in sodium chloride 0.9% (100 ml) 100 ML 220 MG IV (13:58)
[2022-06-26] MEDS: sodium chloride 0.9% 250 ML 50 ML IV (13:58)
[2022-06-26 14:45] VITALS: BP 109/75; PULSE 80; RESP 16; TEMP 36.3; O2SAT 99
== END 2022-06-28 23:59 | disposition home or self-care (01) ==
PROVIDERS: PCP Family Medicine; Visit Provider Internal Medicine Hematology & Oncology
DX: D50.9 Iron deficiency anemia, unspecified (principal); Z79.899 Other long term (current) drug therapy
CPT/HCPCS: 36415; 84155; 84165; 86334; 96365; 96375; J1200; J1756; J7050

== ENCOUNTER 2022-08-04 10:04 | Outpatient (CLI) | payer OTHER, MEDICAID, SELFPAY | END 2022-08-04 10:05 | disposition home or self-care (01) | LOC: RT 08-08 10:06 | PROVIDERS: PCP Family Medicine; Visit Provider Specialist | DX: Z13.6 Encounter for screening for cardiovascular disorders (principal); I45.19 Other right bundle-branch block | CPT/HCPCS: 93005 ==

== ENCOUNTER 2022-08-05 07:14 | Outpatient (CLI) | payer OTHER, MEDICAID, SELFPAY ==
--- NOTE | 2022-08-05 07:00 | CT_ITS ---
WS: [email or web address] CT RIGHT KNEE, NONCONTRAST TECHNIQUE: Noncontrast CT of the RIGHT knee to include the RIGHT hip and ankle. CLINICAL INFORMATION: JACY assisted right total knee arthroplasty COMPARISON: 05/07/22 DLP: 709.[address] scans at [facility] use at least one of these dose optimization techniques: automated e xposure control; mA and/or kV adjustment per patient size (includes targeted exams where dose is matc hed to clinical indication); or iterative reconstruction. FINDINGS: Advanced tricompartmental arthritis RIGHT knee. Hypertrophic changes along the joint line. Joint spac e narrowing worse medial joint compartment. Vascular calcification. Minimal degenerative narrowing wilber th hips. Moderate suprapatellar effusion. Hypertrophic patella. Vascular calcification. Small amount of free fluid in the cul-de-sac. CT/CT knee RT JACY IMPRESSION: Images obtained for preoperative purposes.
== END 2022-08-05 07:15 | disposition home or self-care (01) ==
LOC: RAD 07:17
PROVIDERS: PCP Family Medicine; Visit Provider Specialist
DX: M17.11 Unilateral primary osteoarthritis, right knee (principal)
CPT/HCPCS: 73700

== ENCOUNTER 2022-08-12 10:58 | Observation (INO) | payer MEDICAID, SELFPAY ==
[2022-08-04 13:05] VITALS: BMI 33.8
--- NOTE | 2022-08-04 13:10 | ANES.PREANE2 ---
Pre-Anesthetic Assessment Height/Weight: Height 1.57 m Weight 83.915 kg Preop Diagnosis: microcytic anemia Operation Date: 08/12/22 07:00 Proposed Procedures p RIGHT TOTAL KNEE ARTHROPLASTY WITH [facility] GUIDANCE 53395,M17.10(Right) - Pauline Melendrez MD Familial anesthetic complications: none Social No alcohol and No tobacco Exam alert, oriented x 3, clear to auscultation bilaterally and regular rate & rhythm Airway Mallampati: Class III Dentition: full Pulmonary None reported CV/HEM Anemia, Coronary Artery Disease and Myocardial Infarction cath report 07/19 Conclusions ? 1. Total thrombotic occlusion of the proximal to mid RCA s/p successful revascularization with DANAE x 2. ? 2. 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 ? 3. Moderate mid LAD stenosis. ? 4. Proximal Right Coronary Artery to Mid Right Coronary Artery was treated with a Balloon, and Drug Eluting Stent. ? 5. Mid Right Coronary Artery to Distal Right Coronary Artery was treated with a Drug Eluting Stent. Recommendations ? * Admit to ICU. ? * Aspirin and Plavix for atleast 1 year. ? * High intensity statin therapy. ? * Beta wandy. ? * Outpatient cardiology follow up in 4 weeks. ? * We will obtain stress test as outpatient to evaluate ischemia in the LAD territory. Echo 2020 CONCLUSIONS ?LV systolic function is normal with EF of 55-60%. Moderate ?hypokinesis of the inferolateral wall is noted ?Diastolic function is normal ?Mild mitral regurgitation ?No comparison studies are available Metabolic Diabetes Mellitus ((pre-DM)) and Hyperlipidemia [facility] psoriatic arthritis ( no prednisone in last year) Anesthetic Plan ASA status: 3 Anesthesia: Regional (specify below) Other: spinal + adductor Risk of > 500 ml blood loss (7ml/kg in children): No Medications/Allergies Home Medications Medication Instructions Recorded Confirmed Last Taken Type cholecalciferol (vitamin D3) 50 50 mcg PO DAILY 05/29/21 08/04/22 07/25/21 History mcg (2,000 unit) capsule folic acid 400 mcg tablet 0.4 mg PO DAILY 10/22/21 08/04/22 Unknown History nitroglycerin 0.4 mg sublingual 0.4 mg sublingual Q5M PRN chest 10/22/21 08/04/22 Unknown Rx tablet pain #25 tabs vitamin B complex (B 1 tab PO DAILY 10/29/21 08/04/22 Unknown History Complex-Vitamin B12 tablet) naproxen 500 mg tablet 500 mg PO BID PRN Pain 01/13/22 08/04/22 Unknown History diclofenac sodium 1 % topical gel 4 g topical QID #100 grams 02/05/22 08/04/22 Unknown Rx (Voltaren Arthritis Pain) guselkumab 100 mg/mL subcutaneous 100 mg SUBCUT .COMPLEX #1 mL 03/17/22 08/04/22 Unknown Rx auto-injector (Tremfya) venlafaxine 150 mg 150 mg PO DAILY 04/23/22 08/04/22 Unknown History capsule,extended release 24 hr atorvastatin 20 mg tablet 20 mg PO .hs 05/12/22 08/04/22 Unknown History estradiol 0.01% (0.1 mg/gram) 1 g vaginal .COMPLEX 05/12/22 08/04/22 Unknown History vaginal cream triamcinolone acetonide 0.5 % 1 applic topical TID PRN Rash 05/12/22 08/04/22 Unknown History topical cream aspirin 81 mg tablet,delayed 81 mg PO DAILY 08/04/22 08/04/22 Unknown History release gabapentin 300 mg capsule 300 mg PO BID pain 08/04/22 08/04/22 Unknown History Allergies Allergy/AdvReac Type Severity Reaction Status Date / Time No Known Allergies Allergy Verified 08/04/22 13:00 [facility] Anesthesia Medical History Atherosclerosis of coronary artery Generalized osteoarthritis Immunosuppression Microcytic anemia Microcytic hypochromic anemia Psoriasis Psoriatic arthritis ST elevation CT (STEMI) Social History Smoking and tobacco status: former smoker Second hand smoke exposure: No Alcohol intake: current Alcohol intake frequency: few times a month Alcohol type: beer Marital status: Number of children: 2 Current occupational status: employed Current occupation: [employer] History of recent travel: No Female Reproductive History Date of last menstrual period: 03/08/11 Data Anesthesia 08/04/22 13:20 08/04/22 13:20 Cardiac Studies: Echocardiogram 03/11/21
[2022-08-04 13:28] LABS: Basophils # 0.1 10^3/uL (0.0-0.1); Basophils % 0.7 %; Eosinophils # 0.2 10^3/uL (0.0-0.8); Eosinophils % 3.2 %; Hematocrit 39.9 % (37.0-47.0); Hemoglobin 12.2 g/dL (11.5-15.3); Lymphocytes # 2.1 10^3/uL (0.8-4.8); Lymphocytes % 29.2 %; Mean Corpuscular HGB Conc 30.6 g/dL (30.0-36.0); Mean Corpuscular Hemoglobin 24.3 pg (28.0-34.0); Mean Corpuscular Volume 79.3 fl (81-99); Mean Platelet Volume 9.4 fL (7.4-10.4); Monocytes # 0.4 10^3/uL (0.2-0.9); Monocytes % 5.7 %; Neutrophils # 4.38 10^3/uL (1.8-7.7); Neutrophils % 60.9 %; Nucleated Red Blood Cells % 0 %; Platelet Count 331 10^3/cmm (130-400); Red Blood Count 5.03 10^6/uL (4.1-5.3); Red Cell Distribution Width 21.1 % (12.1-15.1); White Blood Count 7.2 10^3/uL (4.0-10.0)
--- NOTE | 2022-08-04 13:35 | ECG_ITS ---
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 Measurements Intervals [place] Rate: 88 P: -12 NH: 154 QRS: -4 QRSD: 103 T: 18 QT: 356 QTc: 432 Interpretive Statements SINUS RHYTHM INCOMPLETE RIGHT BUNDLE BRANCH BLOCK [90+ ms QRS DURATION, TERMINAL R IN V1/V2, 40+ ms S IN I/aVL/V4/V5/V6] Compared to ECG 03/11/2021 10:16:40 Incomplete right bundle-branch block now present Myocardial infarct finding no longer present Electronically Signed On 08-04-2022 22:07:57 REGIONAL SALES DIRECTOR by Yodit Velasquez M.D. [id number]
[2022-08-04 13:37] LABS: Add Urine Microscopic? YES; Bilirubin Urine Neg (Negative); Blood Urine Neg (Negative); Glucose Urine UA Norm (Normal); Ketones Urine Negative (Negative); Leukocyte Esterase Urine 2+ (Negative); Nitrate Urine Positive (Negative); Protein Urine Neg (Negative); Urine Appearance Clear (CLEAR); Urine Color Straw (Yellow); Urobilinogen Urine Norm (Negative); pH Urine 6 (5-7)
[2022-08-04 13:38] LABS: Add Urine Culture? Yes; Bacteria Urine 3+ /hpf; WBC Urine 15-25 /hpf (0-5)
[2022-08-04 13:46] LABS: Alanine Aminotransferase 7 U/L (0-33); Albumin Level 4.1 g/dL (3.5-5.2); Alkaline Phosphatase 171 U/L (35-105); Anion Gap 12.2 (5-19); Aspartate Amino Transferase 10 U/L (0-32); Blood Urea Nitrogen 9 mg/dL (6-20); Carbon Dioxide 26 mmol/L (22-29); Chloride 97 mmol/L (98-107); Globulin 4.4 g/dL (1.3-4.6); Glomerular Filtration Rate 87.5 mL/min (90-130); Glucose 96 mg/dL (65-115); Osmolality Calculated 271 mOsm/kg (285-295); Potassium 4.2 mmol/L (3.5-5.1); Sodium 131 mmol/L (136-145); Total Bilirubin 0.2 mg/dL (0.15-1.2); Total Protein 8.5 g/dL (6.6-8.7)
[2022-08-12] VITALS (23 sets, daily range): BP systolic 94–138; BP diastolic 62–106; PULSE 60–89; RESP 12–18; TEMP 36.1–37; O2SAT 93–100
[2022-08-12] MEDS: acetaminophen 1,000 MG/100 ML PIGGYBACK 400 MG IV ×3 (06:25→21:34)
[2022-08-12] MEDS: CELEcoxib 200 mg Capsule 400 MG PO (06:25)
[2022-08-12] MEDS: sodium chloride 0.9% 1,000 ML 30 ML IV (06:26)
[2022-08-12 06:33] LABS: Add Urine Microscopic? YES; Bilirubin Urine 1+ (Negative); Blood Urine 2+ (Negative); Glucose Urine UA Norm (Normal); Ketones Urine 1+ (Negative); Leukocyte Esterase Urine Negative (Negative); Nitrate Urine Negative (Negative); Protein Urine Neg (Negative); Specific Gravity, Urine 1.025 (1.005-1.030); Urine Appearance Clear (CLEAR); Urine Color Yellow (Yellow); Urobilinogen Urine Norm (Negative); pH Urine 5 (5-7)
[2022-08-12 06:34] LABS: Add Urine Culture? No; Bacteria Urine 1+ /hpf; RBC Urine 0-4 /hpf (0-2); WBC Urine 0-4 /hpf (0-5)
--- NOTE | 2022-08-12 06:50 | W.PM.OPSUD ---
Surgery/Procedure H&P Update DATE OF PROCEDURE: August 12, 2022 DATE H&P PERFORMED: 07/16/22 H&P UPDATE INFORMATION: I have reviewed H&P completed within last 30 days, I have examined patient prior to procedure, No changes to prior documentation and H&P is in [facility] EMR on date indicated PREOP DIAGNOSIS: Primary osteoarthritis right knee PLANNED PROCEDURE: Operation Date: 08/12/22 07:00 Proposed Procedures p RIGHT TOTAL KNEE ARTHROPLASTY WITH [facility] GUIDANCE 85114,M17.10(Right) - Pauline Melendrez MD Related Problem List Diagnoses (1) Primary osteoarthritis of right knee:
[2022-08-12] MEDS: ceFAZolin 2,000 MG in sodium chloride 0.9% (plus) 50 ML 100 MG IV ×3 (07:04→22:22)
--- NOTE | 2022-08-12 08:00 | P.ANESUD_ITS ---
Pre-Anesthetic Update Pre-Anesthetic Assessment: Date of Surgery/Procedure: 08/12/22 Preop Heather gnosis: Primary osteoarthritis right knee Proposed Procedure: Operation Date: 08/12/22 07:00 Proposed Procedures p RIGHT TOTAL KNEE ARTHROPLASTY WITH [facility] GUIDANCE 13149,M17.10(Right) - Pauline Melendrez MD Any changes to Pre-Anesthetic Assessment?: No Last Intake: Intake Last Liquid Date 08/11/22 Last Liquid Time 20:00 Last Solid Date 08/11/22 Last Solid Time 18:00 Labs Last 48hrs: Urine 08/12/22 Range/Units 06:00 Urine Color Yellow (Yellow) Urine Appearance Clear (CLEAR) Urine pH 5 (5-7) Ur Specific Gravit y 1.025 (1.005-1.030) Urine Protein Neg (Negative) Urine Glucose (UA) Norm (Normal) Urine Ketones 1+ H (Negative) Urine Nitrate Negative (Negative) Urine Bilirubin 1+ H (Negative) Ur Leukocyte Gogo ase Negative (Negative) Urine RBC 0-4 H (0-2) /hpf Urine WBC 0-4 H (0-5) /hpf Vitals: Temperature 97 F L 08/12/22 06:06 Temperature Source Temporal Artery S can 08/12/22 06:06 Pulse Rate 88 08/12/22 06:06 Pulse Rhythm 08/12/22 06:10 Pulse Strength 3+ Normal 08/12/22 06:10 Respiratory Rate 18 08/12/22 06:06 Blood Pressure 123/106 08/12/22 06:06 Blood Pressure Teresa n 111 08/12/22 06:06 Pulse Oximetry 97 08/12/22 06:06 Oxygen Delivery Me thod 08/12/22 06:10 Exam: Pre-Anes Outpt Exam: alert, oriented x 3, clear to auscultation bilaterally and regular rate & rhythm Cardiac Studies: Echocardiogram 03/11/21 Anesthesia Procedures Nerve Block: Nerve Block 1: Main Anesthesia: spinal anesthesia block Time Out Performed: Yes Consent: from patient, risks and benefits reviewed and patient agrees to proceed Nerve block location: adductor canal (right) Anesthesia monitors applied: pulse oximetry, EKG, BP cuff and oxygen Nerve block position: supine Anesthetic Used: ropivicaine 0.5% Amount of anesthesia used (mL): 20 Ultrasound used to: recognize landmarks Nerve Stimulator Used?: No Interscalene/Femoral BLK: 4 stimuplex 21 g needle used for position and inplane approach Injection: neg aspiration of heme Patient Tolerated Procedure: well Complications: none
[2022-08-12] MEDS: vancomycin 1,000 MG SDV 1000 MG XX (08:30)
[2022-08-12] MEDS: ceFAZolin 1,000 mg SDV 2000 MG IRRIGATION (08:31)
[2022-08-12] MEDS: tranexamic acid 1,000 mg/10mL SDV 1000 MG XX (09:51)
--- NOTE | 2022-08-12 11:03 | XRR_ITS ---
PROCEDURE INFORMATION: Exam: XR Right Knee Exam date and time: 08/12/2022 11:12 AM Age: 52 years old Clinical indication: Device placement; Joint replacement hardware; Prior surgery; Surgery date: Post-operative (0-2 days); Surgery type: Status post right total knee arthroplasty TECHNIQUE: Imaging protocol: Radiologic exam of the Right knee. Views: 1 or 2 views. COMPARISON: CT knee RT JACY 08/05/2022 7:25 AM FINDINGS: Bones/joints: Metallic knee replacement is present in good position without evidence of loosening. Soft tissues: Postsurgical soft tissue effusion and subcutaneous emphysema is seen in the anterior knee. Metallic jose juan are seen in the anterior knee. XR/XR knee RT 1-2V [id number] IMPRESSION: 1. Metallic knee replacement in good position 2. Postoperative soft tissue findings anterior knee 3. Otherwise No acute findings.
[2022-08-12] MEDS: HYDROmorphone 1 mg/mL INJ 1 mL 0.5 MG IVP ×2 (11:05→11:22)
--- NOTE | 2022-08-12 11:13 | PM.OP ---
Operative Report Date of procedure: August 12, 2022 Pre-op diagnosis: Primary osteoarthritis right knee Post-op diagnosis: Primary osteoarthritis right knee Post-op findings: Complete obliteration of joint space with varus deformity, large osteophytes, and flexion contracture. Procedure done: Right total knee arthroplasty with Tyshawn guidance Implants: The [place] total knee system with a size 4 triathlon beaded cruciate retaining femur right, a triathlon titanium tibial component size 4 beaded, a triathlon X3 tibial bearing CS insert size 4 X 9 mm and a beaded triathlon titanium asymmetric patella size 32 x 10 mm. Specimens removed/disposition: Bone, disposed of Pathology: none sent Surgeon: Pauline Melendrez Chicken Cleaner: [facility] operating room technicians Anesthesia: MAC (With spinal, ASA 3) Estimated blood loss (mL): 200 Tourniquet time (min): 104 (At 250 mmHg) IV fluids (mL): 2,000 Urine output (mL): 500 Complications: None Findings: Severe osteoarthritis of the right knee with flexion contracture and varus deformity. Large osteophytes and significant knee effusion. Condition: stable Disposition: PACU (Then return to floor for postoperative pain management and rehabilitation.) Brief History: Established 52 year old female patient here today for right total knee arthroplasty with Tyshawn guidance. Patient states her pain has worsened since her last visit. She rated her pain a 7/10 at her last office visit. She reports difficulty walking. She states she has been treated by her dentist, and has been cleared for surgery by her dentist with regards to oral issues. She understands that she will have to have the opposite knee replaced relatively quickly provided she recovers from this without incident. She understands the risks and complications and wishes to proceed. Procedure: The patient was brought to the operating theater, and after undergoing spinal anesthesia with supplemental MAC, as well as an adductor canal block, ASA 3, the right lower extremity was prepped with Dura-Prep and draped in usual fashion following placement of a tourniquet high on the leg. The leg was then draped free. Following prepping and draping, the leg was exsanguinated, and the tourniquet was elevated to 250 mmHg for a total tourniquet time of 104 minutes.? Prior to elevation of the tourniquet, but following exposure of the site of surgery, a surgical pause was performed. At the time of the surgical pause, we confirmed the site and side of surgery. Additionally, we confirmed the appropriate and timely administration of preoperative antibiotics, Ancef 2 g and Transexemic acid 1 g.? The availability of equipment was confirmed, and the patient's identity was verbalized as well.? An additional transexemic acid 1 g was given at the end of the surgical procedure as well. Following the surgical pause, an incision was made centering over the patella continuing proximally and distally as necessary to allow access to the knee joint. Dissection continued through skin and soft tissues using a scalpel. Hemostasis was obtained using electrocautery. The skin incision was followed by a median parapatellar arthrotomy. The leg was extended and the patella was able to be displaced laterally.? Appropriate arrays and markers were placed in appropriate position for use of the Tyshawn.? Preoperative planning had been accomplished and was discussed in detail with the Tyshawn installation service representative.? Intraoperative mapping of the femur and tibia was accomplished after the arrays were placed.? Internal markers were also placed.? Once we had accomplished the Tyshawn mapping, we began the appropriate resections for placement of the prosthesis.? The plan was for a cruciate retaining right total knee arthroplasty. Once appropriate mapping had been accomplished retraction was established using manual retraction by surgical technicians and also the Tyshawn leg positioner and retractors.? The knee was evaluated.? There was a significant osteoarthritic change.? Appropriate bone resection was accomplished using the Tyshawn.? The femur was sized to a size 4.? Following femoral cuts, attention was directed to the tibia.? Osteophytes were removed prior to this portion of the procedure.? We had performed a minimal medial release at the beginning of the procedure to allow for placement of the array.? Proximal tibia was evaluated and it was felt that appropriate size for the tibia was a size 4.? Initially, planning had been accomplished for a size 5, and we evaluated the proximal tibia for a size 5, but the 5 overlapped anteriorly and posteriorly; and therefore, it was felt that a size 4 tibia was a more appropriate sized component. A trial reduction was accomplished after osteophytes have been removed as well as the medial and lateral menisci.? We had removed the anterior cruciate ligament at the beginning of the case and preserved the posterior cruciate ligament.? Medial release had been accomplished as well. Trial reduction was accomplished with a size 4 femoral cruciate retaining component and a size 4 CS tibial bearing insert which was 9 mm in thickness which gave excellent varus valgus stability and full extension.? Alignment was felt to be appropriate as well. As the patient had a varus deformity as well as flexion contracture preoperatively, soft tissue releases were accomplished.? Posterior release was also accomplished.? Trial components were removed after the femur had been drilled.? Prior to removal of the tibial tray which had been pinned in position with appropriate rotation as determined by the Tyshawn plan, we broached the tibia.? Subsequently, the 4 drill holes were made for the prosthetic component.? All trial components were removed, and the wound was irrigated.? Plans were made for insertion of the prosthetic components.? Prior to this, the patella was manually prepared.? After resection of the articular surface with the jogging system, it was measured and measured a 32 mm patella.? We resected approximately 9 mm of patella and patellar height was restored with the patellar component. Once again, the wound was irrigated.? The Tritanium tibia was impacted into position.? The beaded femur was then impacted into position in a cementless fashion. The CS tibial insert was placed prior to placement of the femoral component. The patella was pressed into position with a patellar clamp.? Exparel was injected about the components deep and superficially.? The knee was then copiously irrigated with betadine and saline and suctioned dry. Attention was then directed to closure. Closure was accomplished with 0 Vicryl in the fascial tissues.? This was followed by Surgiflo and vancomycin powder.? Following this, a 2-0 Monocryl was used in the subcutaneous tissues, and the skin was closed with skin jose juan.? Care was taken to assure an excellent subcutaneous as well as skin closure.? A sterile dressing was then placed consisting of Dermabond Prineo, OpSite, sterile soft roll including over the foot, and an Jose Carlos wrap. The patient was returned the Recovery Room in a satisfactory condition. X-rays were obtained and reviewed there.? The patient will be discharged to the floor for postoperative rehabilitation and pain management. Related Problem List Diagnoses (1) Primary osteoarthritis of right knee:
[2022-08-12] MEDS: ketorolac 30 mg/mL INJ 15 MG IVP (11:35)
[2022-08-12] MEDS: ondansetron 2 mg/ML SDV 2 mL 4 MG IVP ×2 (12:29→18:45)
[2022-08-12] MEDS: oxyCODONE 5 mg IR Tab/Cap PO ×2 (12:36→18:46)
[2022-08-12] MEDS: chlorhexidine gluconate 0.12% Btl 473 mL 30 ML MUCOUS MEM ×3 (12:55→21:33)
--- NOTE | 2022-08-12 16:16 | ANE.PACU2 ---
Inpatient post-anesthesia follow up: Airway intact: Yes Vital signs: Temperature 98.0 F Pulse Rate 71 Respiratory Rate 17 Blood Pressure 117/81 Pulse Oximetry 98 Oxygen Delivery Me thod Nasal Cannula Oxygen Flow Rate 2 Fraction of Inspir ed Oxygen Hydration adequate: Yes Nausea and vomiting: No Pain level: 2 Mental status: Baseline
[2022-08-12] MEDS: CELEcoxib 200 mg Capsule PO (18:47)
[2022-08-12] MEDS: mupirocin oint 22 gm 1 APPLIC NASAL (18:47)
[2022-08-12] MEDS: calcium carbonate 500 mg Chew Tablet 1000 MG PO (18:47)
[2022-08-12] MEDS: gabapentin 300 mg Capsule PO (18:49)
[2022-08-12] MEDS: atorvastatin 40 mg Tablet 20 MG PO (21:33)
[2022-08-13] VITALS (9 sets, daily range): BP systolic 115–156; BP diastolic 73–84; PULSE 72–96; RESP 16–19; TEMP 36.7–37.1; O2SAT 93–99
[2022-08-13 05:24] LABS: Basophils % 0.3 %; Eosinophils # 0.1 10^3/uL (0.0-0.8); Eosinophils % 1.7 %; Hematocrit 27.4 % (37.0-47.0); Hemoglobin 8.5 g/dL (11.5-15.3); Lymphocytes # 1.4 10^3/uL (0.8-4.8); Lymphocytes % 23.5 %; Mean Corpuscular Hemoglobin 24.9 pg (28.0-34.0); Mean Corpuscular Volume 80.1 fl (81-99); Mean Platelet Volume 9.6 fL (7.4-10.4); Monocytes # 0.4 10^3/uL (0.2-0.9); Monocytes % 6.5 %; Neutrophils # 3.95 10^3/uL (1.8-7.7); Neutrophils % 67.7 %; Nucleated Red Blood Cells % 0 %; Platelet Count 233 10^3/cmm (130-400); Red Blood Count 3.42 10^6/uL (4.1-5.3); Red Cell Distribution Width 20.6 % (12.1-15.1); White Blood Count 5.8 10^3/uL (4.0-10.0)
[2022-08-13] MEDS: acetaminophen 1,000 MG/100 ML PIGGYBACK 400 MG IV (05:39)
[2022-08-13] MEDS: CELEcoxib 200 mg Capsule PO ×2 (05:39→18:13)
[2022-08-13 05:50] LABS: Blood Urea Nitrogen 9 mg/dL (6-20); Calcium 8.1 mg/dL (8.5-10.5); Carbon Dioxide 23 mmol/L (22-29); Chloride 107 mmol/L (98-107); Glomerular Filtration Rate 104.6 mL/min (90-130); Glucose 119 mg/dL (65-115); Osmolality Calculated 288 mOsm/kg (285-295); Sodium 139 mmol/L (136-145)
[2022-08-13] MEDS: oxyCODONE 5 mg IR Tab/Cap PO ×4 (06:10→18:12)
[2022-08-13] MEDS: ceFAZolin 2,000 MG in sodium chloride 0.9% (plus) 50 ML 100 MG IV (06:11)
[2022-08-13] MEDS: venlafaxine ER (24HR) 150 mg Capsule PO (08:17)
[2022-08-13] MEDS: calcium carbonate 500 mg Chew Tablet 1000 MG PO ×2 (08:17→18:13)
[2022-08-13] MEDS: multivitamin therapeutic Tablet 1 TAB PO (08:17)
[2022-08-13] MEDS: cholecalciferol (vitamin D3) 1,000 unit Tablet 1000 UNIT PO (08:17)
[2022-08-13] MEDS: iron polysaccharide complex 150 mg Capsule PO ×2 (08:17→18:13)
[2022-08-13] MEDS: sennosides-docusate Tablet 2 TAB PO ×2 (08:17→18:13)
[2022-08-13] MEDS: gabapentin 300 mg Capsule PO ×2 (08:18→18:13)
[2022-08-13] MEDS: aspirin 325 mg EC Tablet PO (08:18)
--- NOTE | 2022-08-13 09:54 | PC.CHAP ---
Pastoral Care Encounter/Spiritual Assessment Type of Contact [] Declined vine pruner visit [] Patient/Family/Request visit [] Outpatient visit [] Follow-up visit [] Physician referral [] Code/Alert [x] Routine visit [] Staff referral [] Actively dying [] Patient sleeping [] Family support [] [] Out of room [] Palliative care [] [] Receiving care in room [] Pre-surgical visit [] Trauma [] Long length of stay [] ICU visit [] Other: Relational/Emotional Strength [x] Patient feels connected with others/family/visitors/staff [] Distress [] Loneliness/isolation [] Abandonment Spirituality of Patient [x] Person of Latisha [] Attends Sikh of their Latisha [x] Believes in Prayer [x] Reads Bible or Anglican materials [] There are Spiritual issues to be addressed Welder Plasma Arc Interventions [x] Prayer [x] Active listening [x] Non-anxious presence [x] Spiritual/emotional support [] Crisis/trauma care [] Spiritual counseling [] Bereavement support [] Provided bereavement packet [] Provided Bible/devotional materials [] Provided toy/stuffed animal, coloring book to patient or family member [] Provided Communion [] Anointing/[place] [] Salvation [x] Completed spiritual assessment [] Other: Impact on Illness or Injury [] Angry [] Fearful [] Anxious [] Often cries [] Exhaustion [] Unable to work [] Unable to attend pentecostalism [] Unable to walk/stand [] Unable to read [] Unable to drive [] Unable to eat/drink [] Unable to sleep [] Unable to be with family [] Patient intubated [] Other: Summary Pt sitting in chair. It was apparent she was in a great deal of pain. She just had knee replacement surgery and the PT had left. Once she leaves hospital she will be living with her father for a short time. In her home she is unable to use a walker or a wheel chair but in his home she will so she will live with him until she can move without them. She has a son who lives in the local area that she can turn to if she needs assistance. Time spent with patient 15m
[2022-08-13] MEDS: acetaminophen 500 mg Tablet 1000 MG PO ×2 (14:13→22:30)
--- NOTE | 2022-08-13 17:07 | PM.PN ---
Subjective Subjective: The patient is seen in her room following total knee arthroplasty which was performed yesterday on the right knee. She had a significant degree of pain which limited her ability to aggressively work with physical therapy today. She is concerned regarding going home as she has minimally ambulated in the mead. Medications: Reviewed: Yes Vitals/I&O/Wt Last Vital Signs Temp 98.0 F 08/13/22 15:32 Pulse 81 08/13/22 15:32 Resp 16 08/13/22 15:32 BP 152/84 08/13/22 15:32 Pulse Ox 93 08/13/22 15:32 O2 Del Method 08/13/22 11:35 O2 Flow Rate 2 08/12/22 12:13 08/13/22 08/13/22 08/13/22 06:59 14:59 22:59 Intake Total 200 / 2950 480 / 480 Output Total 200 / 2350 Balance 0 / 600 480 / 480 Physical Exam Const: COMMON NORMALS: no acute distress, average body habitus, patient oriented x3 and alert GENERAL APPEARANCE: cooperative and comfortable ORIENTATION/CONSCIOUSNESS: Yes awake HENMT: COMMON NORMALS: normocephalic and atraumatic HEAD & SCALP: normocephalic and atraumatic Eye: GENERAL EYE: appearance normal, both eyes and all related structures Chest: COMMONS NORMALS: normal inspection of the chest Resp: COMMON NORMALS: normal respiratory effort EFFORT & INSPECTION: Yes able to speak in complete sentences and Yes symmetric chest movement Extremity: RIGHT LOWER EXTREMITY: Yes knee joint Right knee: Yes inspection (There is no significant bruising or swelling about the leg.), Yes palpation (Minimal tenderness to palpation.), Yes ROM (Not evaluated.), Yes neurovascular exam (Intact distally with no evidence of DVT.) and Yes other (Outer dressing is removed, there is minimal bleeding on the dressing) Neuro: COMMON NORMALS: patient oriented x3 SENSORIUM/ORIENTATION: Yes alert Psych: COMMON NORMALS: mental status grossly normal APPEARANCE: Yes grossly normal ATTITUDE: Yes calm and Yes engaged ATTENTION/CONCENTRATION: Yes attention grossly intact Skin: COMMON NORMALS: no rashes or lesions noted GENERAL SKIN EXAM: no rashes or lesions noted Urinary Catheter Management: Jonas: Cath Placed During This Visit: yes, but has since been removed by the nurse Reason for Continuing Indwelling Catheter: Perioperative Use in Selected Surgeries Urinary Catheter Date of Insertion: 08/12/22 Urinary Catheter Time of Insertion: 07:50 Date Urinary Catheter Removed: 08/13/22 Time Urinary Catheter Discontinued: 05:47 Data 08/13/22 04:02 08/13/22 04:02 A&P Assessment and plan (1) Primary osteoarthritis of right knee: Patient underwent primary total knee arthroplasty yesterday with Tyshawn guidance. This was well-tolerated. The patient was admitted postoperatively to the floor. Today, she complained of pain and had difficulties with participating with physical therapy. She did walk in the mead, but had limited therapy. She will remain for another night so that she may be safer for discharge to home and more independent. Attestations Medical Necessity Statement*: Patient requires ongoing hospital care for pain management and increase in independence following right total knee arthroplasty. Coding Level of Care Code Acute Code for [facility] Diagnoses Primary osteoarthritis of right knee M17.11
--- NOTE | 2022-08-13 19:11 | PC.NURSE ---
Patient has needed a lot of encouragement today to sit in the chair and to ambulate. Pain better controlled this afternoon. Surgical incision dressing changed with Dr. Melendrez. Good neurovascular checks. Patient currently sitting up in the chair watching tv. No IV access. Okay to leave out per Dr. Melendrez.
[2022-08-13] MEDS: atorvastatin 40 mg Tablet 20 MG PO (20:01)
[2022-08-13] MEDS: chlorhexidine gluconate 0.12% Btl 473 mL 30 ML MUCOUS MEM (20:02)
[2022-08-14 03:39] VITALS: BP 144/85; PULSE 88; RESP 19; TEMP 36.7; O2SAT 95
[2022-08-14] MEDS: acetaminophen 500 mg Tablet 1000 MG PO (06:19)
[2022-08-14] MEDS: CELEcoxib 200 mg Capsule PO (06:19)
[2022-08-14 08:25] VITALS: BP 125/76; PULSE 87; RESP 18; TEMP 36.8; O2SAT 96
[2022-08-14 08:29] VITALS: RESP 16
[2022-08-14] MEDS: aspirin 325 mg EC Tablet PO (08:29)
[2022-08-14] MEDS: multivitamin therapeutic Tablet 1 TAB PO (08:29)
[2022-08-14] MEDS: iron polysaccharide complex 150 mg Capsule PO (08:29)
[2022-08-14] MEDS: gabapentin 300 mg Capsule PO (08:29)
[2022-08-14] MEDS: oxyCODONE 5 mg IR Tab/Cap PO (08:29)
[2022-08-14] MEDS: cholecalciferol (vitamin D3) 1,000 unit Tablet 1000 UNIT PO (08:29)
[2022-08-14] MEDS: calcium carbonate 500 mg Chew Tablet 1000 MG PO (08:29)
[2022-08-14] MEDS: venlafaxine ER (24HR) 150 mg Capsule PO (08:32)
[2022-08-14] MEDS: sennosides-docusate Tablet 2 TAB PO (08:32)
[2022-08-14 12:08] VITALS: BP 111/70; PULSE 81; RESP 16; TEMP 36.6; O2SAT 94
--- NOTE | 2022-08-14 13:35 | PM.DCS ---
Discharge Providers Date of Admission: 08/12/22 10:58 Date of Discharge: August 14, 2022 Attending Provider at Admission: Pauline Melendrez MD Attending Provider at Discharge: Pauline Melendrez MD Primary Care Provider: Colt Adams MD Diagnoses at Discharge Discharge Diagnosis (1) Primary osteoarthritis of right knee: Status: Acute (2) Status post total right knee replacement not using cement: Status: Acute Permanent problem details: Date of procedure: August 12, 2022 Diagnosis: Primary osteoarthritis right knee Post-op findings: Complete obliteration of joint space with varus deformity, large osteophytes, and flexion contracture. Procedure done: Right total knee arthroplasty with Tyshawn guidance Implants: [employer] total knee system with a size 4 triathlon beaded cruciate retaining femur right, a triathlon titanium tibial component size 4 beaded, a triathlon X3 tibial bearing CS insert size 4 X 9 mm and a beaded triathlon titanium asymmetric patella size 32 x 10 mm. Reason for Visit Reason for Visit: M17.10 Brief History: This is a 52 year old female patient here today for right total knee arthroplasty with Tyshawn guidance. Patient states her pain has worsened since her last visit. She rated her pain a 7/10 at her last office visit. She reports difficulty walking. She states she has been treated by her dentist, and has been cleared for surgery by her dentist with regards to oral issues.? She understands that she will have to have the opposite knee replaced relatively quickly provided she recovers from this without incident.? She understands the risks and complications and wishes to proceed. Hospital Course Hospital Course Patient was admitted following the above procedure. The procedure was well-tolerated, but she did have a significant level of pain postoperatively. She has not ambulated safely on the first postoperative day. Her wound was benign and dressing was changed. The decision was made to maintain her in the hospital for an additional overnight so that she could receive ongoing monitoring and pain management. On the second postoperative day, she was up in a chair and comfortable. She was neurologically intact with no evidence of DVT. Dressing was dry and intact. Physical Exam Const: COMMON NORMALS: no acute distress, average body habitus, patient oriented x3 and alert GENERAL APPEARANCE: cooperative and comfortable ORIENTATION/CONSCIOUSNESS: Yes awake HENMT: COMMON NORMALS: normocephalic and atraumatic HEAD & SCALP: normocephalic and atraumatic Eye: GENERAL EYE: appearance normal, both eyes and all related structures Chest: COMMONS NORMALS: normal inspection of the chest Resp: COMMON NORMALS: normal respiratory effort EFFORT & INSPECTION: Yes able to speak in complete sentences and Yes symmetric chest movement Extremity: RIGHT LOWER EXTREMITY: Yes knee joint (Dressings dry and intact) Right knee: Yes palpation (Minimal to no tenderness.), Yes ROM (Not evaluated.) and Yes neurovascular exam (Intact, no DVT, able to straight leg raise) Neuro: COMMON NORMALS: patient oriented x3 SENSORIUM/ORIENTATION: Yes alert Psych: COMMON NORMALS: mental status grossly normal APPEARANCE: Yes grossly normal ATTITUDE: Yes calm and Yes engaged ATTENTION/CONCENTRATION: Yes attention grossly intact Skin: COMMON NORMALS: no rashes or lesions noted GENERAL SKIN EXAM: no rashes or lesions noted Urinary Catheter Management: Jonas: Cath Placed During This Visit: yes, but has since been removed by the nurse Reason for Continuing Indwelling Catheter: Perioperative Use in Selected Surgeries Urinary Catheter Date of Insertion: 08/12/22 Urinary Catheter Time of Insertion: 07:50 Date Urinary Catheter Removed: 08/13/22 Time Urinary Catheter Discontinued: 05:47 Discharge Data Studies Completed and Pending Completed Studies During Hospitalization Category Date Time Status XR knee RT 1-2V 67913 Routine Exams 08/12/22 11:03 Completed Pathology: Surgical [PTH] Routine Pth 08/12/22 10:19 Completed Radiology Impressions Knee X-Ray 08/12/22 11:03 IMPRESSION: 1. Metallic knee replacement in good position 2. Postoperative soft tissue findings anterior knee 3. Otherwise No acute findings. Laboratory Results WBC 5.8 10^3/uL (4.0-10.0) 08/13/22 04:02 RBC 3.42 10^6/uL (4.1-5.3) L 08/13/22 04:02 Hgb 8.5 g/dL (11.5-15.3) L 08/13/22 04:02 Hct 27.4 % (37.0-47.0) L 08/13/22 04:02 MCV 80.1 fl (81-99) L 08/13/22 04:02 MCH 24.9 pg (28.0-34.0) L 08/13/22 04:02 MCHC 31.0 g/dL (30.0-36.0) 08/13/22 04:02 RDW 20.6 % (12.1-15.1) H 08/13/22 04:02 Plt Count 233 10^3/cmm (130-400) 08/13/22 04:02 MPV 9.6 fL (7.4-10.4) 08/13/22 04:02 Neut % (Auto) 67.7 % 08/13/22 04:02 Lymph % (Auto) 23.5 % 08/13/22 04:02 [place] % (Auto) 6.5 % 08/13/22 04:02 Eos % (Auto) 1.7 % 08/13/22 04:02 Baso % (Auto) 0.3 % 08/13/22 04:02 Neut # (Auto) 3.95 10^3/uL (1.8-7.7) 08/13/22 04:02 Lymph # (Auto) 1.4 10^3/uL (0.8-4.8) 08/13/22 04:02 [place] # (Auto) 0.4 10^3/uL (0.2-0.9) 08/13/22 04:02 Eos # (Auto) 0.1 10^3/uL (0.0-0.8) 08/13/22 04:02 Baso # (Auto) 0.0 10^3/uL (0.0-0.1) 08/13/22 04:02 Nucleated RBC % (auto) 0 % 08/13/22 04:02 Nucleated RBCs # 0.0 /100WBC 08/13/22 04:02 Sodium 139 mmol/L (136-145) 08/13/22 04:02 Potassium 4.0 mmol/L (3.5-5.1) 08/13/22 04:02 Chloride 107 mmol/L (98-107) 08/13/22 04:02 Carbon Dioxide 23 mmol/L (22-29) 08/13/22 04:02 Anion Gap 13.0 (5-19) 08/13/22 04:02 BUN 9 mg/dL (6-20) 08/13/22 04:02 Creatinine 0.6 mg/dL (0.5-0.9) 08/13/22 04:02 GFR Calculation 104.6 mL/min (90-130) 08/13/22 04:02 Glucose 119 mg/dL (65-115) H 08/13/22 04:02 Calculated Osmolality 288 mOsm/kg (285-295) 08/13/22 04:02 Calcium 8.1 mg/dL (8.5-10.5) L 08/13/22 04:02 Total Bilirubin 0.2 mg/dL (0.15-1.2) 08/04/22 13:20 AST 10 U/L (0-32) 08/04/22 13:20 ALT 7 U/L (0-33) 08/04/22 13:20 Alkaline Phosphatase 171 U/L (35-105) H 08/04/22 13:20 Total Protein 8.5 g/dL (6.6-8.7) 08/04/22 13:20 Albumin 4.1 g/dL (3.5-5.2) 08/04/22 13:20 Globulin 4.4 g/dL (1.3-4.6) 08/04/22 13:20 Urine Color Yellow (Yellow) 08/12/22 06:00 Urine Appearance Clear (CLEAR) 08/12/22 06:00 Urine pH 5 (5-7) 08/12/22 06:00 Ur Specific [place] 1.025 (1.005-1.030) 08/12/22 06:00 Urine Protein Neg (Negative) 08/12/22 06:00 Urine Glucose (UA) Norm (Normal) 08/12/22 06:00 Urine Ketones 1+ (Negative) H 08/12/22 06:00 Urine Blood 2+ (Negative) H 08/12/22 06:00 Urine Nitrate Negative (Negative) 08/12/22 06:00 Urine Bilirubin 1+ (Negative) H 08/12/22 06:00 Urine Urobilinogen Norm mg/dL (Negative) 08/12/22 06:00 Ur Leukocyte Esterase Negative (Negative) 08/12/22 06:00 Urine RBC 0-4 /hpf (0-2) H 08/12/22 06:00 Urine WBC 0-4 /hpf (0-5) H 08/12/22 06:00 Ur Squamous Epith Cells 10-15 /hpf (0-5) H 08/12/22 06:00 Amorphous Sediment Not Reportable 08/12/22 06:00 Urine Bacteria 1+ /hpf (NONE) H 08/12/22 06:00 Vitals Last Vital Signs Temp 97.8 F 08/14/22 12:08 Pulse 81 08/14/22 12:08 Resp 16 08/14/22 12:08 BP 111/70 08/14/22 12:08 Pulse Ox 94 08/14/22 12:08 O2 Del Method 08/14/22 08:25 O2 Flow Rate 2 08/12/22 12:13 Discharge Plan Discharge Patient Disposition: Home Health Service Condition: Stable Prescriptions: New acetaminophen 500 mg Tablet 1,000 mg PO Q8H 15 Days Qty: 0 0RF aspirin 325 mg Tablet,Delayed Release (Dr/Ec) 325 mg PO DAILY 30 Days Qty: 0 0RF oxycodone 5 mg Tablet 5 mg PO Q4H PRN (Reason: Moderate Pain) 7 Days Qty: 30 0RF Continued cholecalciferol (vitamin D3) 50 mcg (2,000 unit) capsule 50 mcg PO DAILY folic acid 400 mcg tablet 0.4 mg PO DAILY nitroglycerin 0.4 mg tablet, sublingual 0.4 mg sublingual Q5M PRN (Reason: chest pain) Qty: 25 2RF Rx Instructions: do not exceed 3 doses per episode naproxen 500 mg tablet 500 mg PO BID PRN (Reason: Pain) diclofenac sodium [Voltaren Arthritis Pain] 1 % gel 4 g topical QID Qty: 100 3RF Rx Instructions: apply to single knee, ankle, foot; for foot includes sole/toes/top of foot venlafaxine 150 mg capsule,extended release 24hr 150 mg PO DAILY vitamin B complex [B Complex-Vitamin B12] Tablet 1 tab PO DAILY atorvastatin 20 mg tablet 40 mg PO BEDTIME triamcinolone acetonide 0.5 % cream 1 applic topical TID PRN (Reason: Rash) estradiol 0.01 % (0.1 mg/gram) cream 1 g vaginal .COMPLEX Rx Instructions: 1 g vaginally twice weekly; for 14 days Tremfya 100 mg/mL auto-injector 100 mg SUBCUT .COMPLEX Qty: 1 5RF Rx Instructions: 100 mg subcutaneously Week 0, Week 4, and every 8 weeks thereafter.; gabapentin 300 mg capsule 300 mg PO TID Held aspirin 81 mg tablet,delayed release (DR/EC) 81 mg PO DAILY Hold Instructions: Resume on 09/11/22. Discharge Orders: Discharge Order (Routine); Ordered 08/14/22 Ordered By: Pauline Melendrez Referrals: [facility] ([facility]) [Outside] Pauline Melendrez MD [Physician] - 08/27/22 8:15 am Discharge Diet: Advance as tolerated and Usual diet Discharge Activity: Increase activity as tolerated, Limit activity as instructed, Use walker/crutches as instructed and As per PT/OT instructions Patient Instructions: Oxycodone/Acetaminophen (By mouth), Aspirin (By mouth), Knee Replacement (GEN), Opioid Safety Activity Restrictions/Additional Instructions: Home physical therapy for weightbearing ambulation as tolerated as well as range of motion and strengthening. Ice and elevation to right knee. You may shower, but keep the clear plastic dressing over your knee. Discharge Attestations Time Spent in Discharge Care*: greater than 30 min Specific Discharge Activities: educating patient, educating and/or supporting family/caregiver, documenting/other paperwork and evaluating patient/reviewing data Quality Metrics Clinical Quality Measures [ No reported AMI, CVA or VTE this stay] Coding Level of Care Code Acute Code for Chg Fwd Diagnoses Primary osteoarthritis of right knee M17.11 Status post total right knee replacement not using cement Z96.651
[2022-08-14 14:21] VITALS: BP 111/70; PULSE 81; RESP 16; TEMP 36.6; O2SAT 94
== END 2022-08-14 14:21 | disposition home health service (06) ==
LOC: MEDSURG 10:58
PROVIDERS: Admitting Provider Specialist; PCP Family Medicine; Visit Provider Specialist
PROC: 8E0Y0CZ Robotic Assisted Procedure of Lower Extremity, Open Approach (ICD-10-PCS; CPT 27447; principal; 2022-08-12 07:00)
DX: M17.11 Unilateral primary osteoarthritis, right knee (principal); I25.10 Atherosclerotic heart disease of native coronary artery without angina pectoris; I25.2 Old myocardial infarction; E11.9 Type 2 diabetes mellitus without complications; R78.5 Finding of other psychotropic drug in blood; Z87.891 Personal history of nicotine dependence
CPT/HCPCS: 27447; 36415; 51702; 73560; 80048; 80053; 81001; 85025; 87077; 87086; 87186; 88305; 97110; 97116; 97161; 97165; C1776; C9290; G0378; J0131; J0690; J1170; J1885; J2250; J2405; J2704; J2795; J3370; J3490; J7030

== ENCOUNTER 2022-09-18 14:52 | Outpatient (RCR) | payer OTHER, MEDICAID, SELFPAY | END 2022-09-26 23:59 | disposition home or self-care (01) | LOC: SPT 14:52 | PROVIDERS: PCP Family Medicine; Visit Provider Specialist | DX: Z47.1 Aftercare following joint replacement surgery (principal); Z96.651 Presence of right artificial knee joint | CPT/HCPCS: 97110; 97161 ==

== ENCOUNTER 2022-09-24 14:30 | Oncology outpatient (recurring) (ONCR) | payer MEDICAID, SELFPAY ==
[2022-08-27 11:32] LABS: Basophils % 0.5 %; Eosinophils # 0.3 10^3/uL (0.0-0.8); Eosinophils % 3.4 %; Hematocrit 30.7 % (37.0-47.0); Hemoglobin 9.3 g/dL (11.5-15.3); Lymphocytes # 2.1 10^3/uL (0.8-4.8); Lymphocytes % 28.7 %; Mean Corpuscular HGB Conc 30.3 g/dL (30.0-36.0); Mean Corpuscular Hemoglobin 25.8 pg (28.0-34.0); Mean Platelet Volume 8.7 fL (7.4-10.4); Monocytes # 0.4 10^3/uL (0.2-0.9); Monocytes % 4.8 %; Neutrophils # 4.58 10^3/uL (1.8-7.7); Neutrophils % 62.3 %; Nucleated Red Blood Cells % 0 %; Platelet Count 569 10^3/cmm (130-400); Red Blood Count 3.61 10^6/uL (4.1-5.3); Red Cell Distribution Width 20.6 % (12.1-15.1); White Blood Count 7.4 10^3/uL (4.0-10.0)
[2022-08-27 12:18] LABS: Ferritin 348 ng/mL (15-150); Iron 33 ug/dL (37-145); Percent Saturation 12.4 % (20-50); Total Iron Binding Capacity 265 mcg/dl; Unsaturated Iron Binding 232 ug/dL (112-347)
[2022-09-15] MEDS: acetaminophen 325 mg Tablet 650 MG PO (14:37)
[2022-09-15] MEDS: sodium chloride 0.9% 250 ML 100 ML IV (14:38)
[2022-09-15] MEDS: diphenhydrAMINE 50 mg/mL SDV 1mL 25 MG IVP (14:40)
[2022-09-15] MEDS: iron sucrose 200 MG in sodium chloride 0.9% (100 ml) 100 ML 220 MG IV (14:46)
[2022-09-15 15:29] VITALS: BP 112/83; PULSE 85; TEMP 37.3; O2SAT 95
[2022-09-17] MEDS: sodium chloride 0.9% 250 ML 100 ML IV (14:34)
[2022-09-17] MEDS: acetaminophen 325 mg Tablet 650 MG PO (14:35)
[2022-09-17] MEDS: diphenhydrAMINE 50 mg/mL SDV 1mL 25 MG IVP (14:35)
[2022-09-17] MEDS: iron sucrose 200 MG in sodium chloride 0.9% (100 ml) 100 ML 220 MG IV (14:38)
[2022-09-17 15:25] VITALS: BP 119/80; PULSE 82; TEMP 36.7; O2SAT 99
[2022-09-19] MEDS: acetaminophen 325 mg Tablet 650 MG PO (10:43)
[2022-09-19] MEDS: sodium chloride 0.9% 250 ML 100 ML IV (10:43)
[2022-09-19] MEDS: diphenhydrAMINE 50 mg/mL SDV 1mL 25 MG IVP (10:43)
[2022-09-19] MEDS: iron sucrose 200 MG in sodium chloride 0.9% (100 ml) 100 ML 220 MG IV (10:52)
[2022-09-19 11:45] VITALS: BP 112/82; PULSE 81; TEMP 36.9; O2SAT 99
[2022-09-22 14:13] VITALS: BP 133/66; PULSE 83; RESP 16; TEMP 36.9; O2SAT 96
[2022-09-22] MEDS: diphenhydrAMINE 50 mg/mL SDV 1mL 25 MG IVP (14:23)
[2022-09-22] MEDS: sodium chloride 0.9% 250 ML 75 ML IV (14:23)
[2022-09-22] MEDS: acetaminophen 325 mg Tablet 650 MG PO (14:29)
[2022-09-22] MEDS: iron sucrose 200 MG in sodium chloride 0.9% (100 ml) 100 ML 220 MG IV (14:39)
[2022-09-22 15:11] VITALS: BP 122/80; PULSE 79; RESP 16; TEMP 37.1; O2SAT 98
[2022-09-24 14:33] VITALS: BP 138/88; PULSE 71; RESP 18; TEMP 36.2; O2SAT 100
[2022-09-24] MEDS: diphenhydrAMINE 50 mg/mL SDV 1mL 25 MG IVP (14:38)
[2022-09-24] MEDS: acetaminophen 325 mg Tablet 650 MG PO (14:38)
[2022-09-24] MEDS: sodium chloride 0.9% 250 ML 75 ML IV (14:39)
[2022-09-24] MEDS: iron sucrose 200 MG in sodium chloride 0.9% (100 ml) 100 ML 220 MG IV (14:43)
[2022-09-24 15:29] VITALS: BP 144/98; PULSE 77; RESP 18; TEMP 36.6; O2SAT 97
== END 2022-09-26 23:59 | disposition home or self-care (01) ==
PROVIDERS: PCP Family Medicine; Visit Provider Internal Medicine Hematology & Oncology
DX: D50.9 Iron deficiency anemia, unspecified (principal); Z79.899 Other long term (current) drug therapy
CPT/HCPCS: 36415; 73560; 73565; 82728; 83540; 83550; 85025; 96365; 96375; J1200; J1756; J7050

== ENCOUNTER 2022-09-27 06:00 | Outpatient (RCR) | payer OTHER, MEDICAID, SELFPAY | END 2022-10-09 23:59 | disposition home or self-care (01) | LOC: SPT 06:00 | PROVIDERS: PCP Family Medicine; Visit Provider Specialist | DX: Z47.1 Aftercare following joint replacement surgery (principal); Z96.651 Presence of right artificial knee joint | CPT/HCPCS: 97110 ==

== ENCOUNTER → 2022-10-01 10:13 | Outpatient (BNVA) | payer OTHER, MEDICAID, SELFPAY | PROVIDERS: PCP Family Medicine; Visit Provider Nurse Practitioner Family | DX: Z96.651 Presence of right artificial knee joint (principal); M17.12 Unilateral primary osteoarthritis, left knee | CPT/HCPCS: 73560; 73565 ==

== ENCOUNTER 2022-10-14 07:24 | Outpatient (CLI) | payer OTHER, MEDICAID, SELFPAY ==
--- NOTE | 2022-10-14 07:30 | CT_ITS ---
WS: [id number] CT LEFT KNEE, NONCONTRAST TECHNIQUE: Noncontrast CT of the LEFT knee to include the LEFT hip and ankle. CLINICAL INFORMATION: left knee osteoarthritis COMPARISON: None. DLP: 946.[address] scans at [facility] use at least one of these dose optimization techniques: automated e xposure control; mA and/or kV adjustment per patient size (includes targeted exams where dose is matc hed to clinical indication); or iterative reconstruction. FINDINGS: Prior postoperative changes RIGHT TKA. Advanced tricompartmental arthritis LEFT knee with medial comp artment narrowing. Hypertrophic patella. Moderate suprapatellar effusion. Mild degenerative narrowing both hips. Small amount of free fluid in the pelvis. Vascular calcification. Submucosal edema and enhancement in the sigmoid colon suspicious for inflammatory bowel disease. Thi s is unchanged since the CT abdomen pelvis July 15, 2021 CT/CT knee [facility] IMPRESSION: Images obtained for preoperative purposes.
== END 2022-10-14 07:25 | disposition home or self-care (01) ==
LOC: RAD 07:26
PROVIDERS: PCP Family Medicine; Visit Provider Nurse Practitioner Family
DX: M17.12 Unilateral primary osteoarthritis, left knee (principal)
CPT/HCPCS: 73700

== ENCOUNTER 2022-10-27 14:25 | Outpatient (CLI) | payer OTHER, MEDICAID, SELFPAY ==
[2022-10-27 15:49] LABS: Basophils % 0.5 %; Eosinophils # 0.1 10^3/uL (0.0-0.8); Eosinophils % 0.9 %; Hematocrit 38.1 % (37.0-47.0); Hemoglobin 11.9 g/dL (11.5-15.3); Lymphocytes # 1.4 10^3/uL (0.8-4.8); Lymphocytes % 21.7 %; Mean Corpuscular HGB Conc 31.2 g/dL (30.0-36.0); Mean Corpuscular Hemoglobin 26.3 pg (28.0-34.0); Mean Corpuscular Volume 84.1 fl (81-99); Mean Platelet Volume 9.5 fL (7.4-10.4); Monocytes # 0.3 10^3/uL (0.2-0.9); Monocytes % 4.3 %; Neutrophils # 4.74 10^3/uL (1.8-7.7); Neutrophils % 72.3 %; Nucleated Red Blood Cells % 0 %; Platelet Count 374 10^3/cmm (130-400); Red Blood Count 4.53 10^6/uL (4.1-5.3); Red Cell Distribution Width 15.6 % (12.1-15.1); White Blood Count 6.6 10^3/uL (4.0-10.0)
[2022-10-27 16:52] LABS: Ferritin 524 ng/mL (15-150); Iron 25 ug/dL (37-145); Total Iron Binding Capacity 207 mcg/dl; Unsaturated Iron Binding 182 ug/dL (112-347)
== END 2022-10-27 14:26 | disposition home or self-care (01) ==
LOC: LAB 14:30
PROVIDERS: PCP Family Medicine; Visit Provider Internal Medicine Hematology & Oncology
DX: D50.9 Iron deficiency anemia, unspecified (principal)
CPT/HCPCS: 36415; 82728; 83540; 83550; 85025

== ENCOUNTER 2022-10-30 14:17 | Oncology outpatient (recurring) (ONCR) | payer OTHER, MEDICAID, SELFPAY | END 2022-11-26 23:59 | disposition home or self-care (01) | PROVIDERS: PCP Family Medicine; Visit Provider Internal Medicine Hematology & Oncology | DX: D50.8 Other iron deficiency anemias (principal) ==

== ENCOUNTER → 2022-11-05 12:46 | Outpatient (BNVA) | payer OTHER, MEDICAID, SELFPAY | PROVIDERS: PCP Family Medicine; Visit Provider Specialist | DX: Z01.818 Encounter for other preprocedural examination (principal); E11.40 Type 2 diabetes mellitus with diabetic neuropathy, unspecified; M17.12 Unilateral primary osteoarthritis, left knee; M17.11 Unilateral primary osteoarthritis, right knee | CPT/HCPCS: 36415; 80053; 83036; 85025 ==

== ENCOUNTER 2022-11-11 16:54 | Observation (INO) | payer MEDICAID, SELFPAY ==
[2022-11-04 09:18] VITALS: BMI 33.0
[2022-11-04 09:58] LABS: Add Urine Microscopic? NO; Charge for UA Resulting for Rev
[2022-11-04 10:26] LABS: Bilirubin Urine Neg (Negative); Blood Urine Neg (Negative); Glucose Urine UA Norm (Normal); Ketones Urine Negative (Negative); Leukocyte Esterase Urine Negative (Negative); Nitrate Urine Negative (Negative); Protein Urine Neg (Negative); Urine Appearance Clear (CLEAR); Urine Color Yellow (Yellow); Urobilinogen Urine Neg (Negative); pH Urine 5 (5-7)
--- NOTE | 2022-11-04 14:13 | P.ANESASSM_ITS ---
Pre-Anesthetic Assessment Height/Weight: Height 1.57 m Weight 82.1 kg Preop Diagnosis: Primary osteoarthritis right knee Operation Date: 11/11/22 11:15 Proposed Procedures p LEFT TOTAL KNEE ARHTORPLASTY WITH JACY GUIDANCE 76346,M17.10(Left) - Pauline Melendrez MD Familial anesthetic complications: none Was Beta Belinda taken within 24 hours: N/A Was Clonidine taken within 24 hours: N/A Social No alcohol and No tobacco Exam alert, oriented x 3, clear to auscultation bilaterally and regular rate & rhythm Airway Submandibular: within normal limits Cervical ROM: within normal limits Mallampati: Class III Dentition: chipped CV/HEM Anemia, Coronary Artery Disease (stents), Hypertension and Myocardial Infarction Metabolic Diabetes Mellitus, Hyperlipidemia and Morbid Obesity Musc/skel Lower Back Pain and Osteoarthritis/DJD psoriatic arthritis Neuropsych Neuropathy Anesthetic Plan ASA status: 3 Anesthesia: Regional (specify below) (SAB with adductor blk) Medications/Allergies Home Medications Medication Instructions Recorded Confirmed Last Taken Type cholecalciferol (vitamin D3) 50 50 mcg PO DAILY 05/29/21 11/04/22 1 Day Ago History mcg (2,000 unit) capsule ~11/03/22 folic acid 400 mcg tablet 0.4 mg PO DAILY 10/22/21 11/04/22 1 Day Ago History ~11/03/22 nitroglycerin 0.4 mg sublingual 0.4 mg sublingual Q5M PRN chest 10/22/21 11/04/22 1 Day Ago Rx tablet pain #25 tabs ~11/03/22 vitamin B complex (B 1 tab PO DAILY 10/29/21 11/04/22 1 Day Ago History Complex-Vitamin B12 tablet) ~11/03/22 diclofenac sodium 1 % topical gel 4 g topical QID #100 grams 02/05/22 11/04/22 1 Day Ago Rx (Voltaren Arthritis Pain) ~11/03/22 atorvastatin 20 mg tablet 40 mg PO BEDTIME 05/12/22 11/04/22 1 Day Ago History ~11/03/22 estradiol 0.01% (0.1 mg/gram) 1 g vaginal .COMPLEX 05/12/22 11/04/22 1 Week Ago History vaginal cream ~08/05/22 aspirin 81 mg tablet,delayed 81 mg PO DAILY 08/04/22 11/04/22 1 Day Ago History release ~11/03/22 gabapentin 300 mg capsule 300 mg PO TID pain 08/04/22 11/04/22 1 Day Ago History ~11/03/22 naproxen 500 mg tablet 500 mg PO BID PRN Pain #60 tabs 09/24/22 11/04/22 1 Day Ago Rx ~11/03/22 triamcinolone acetonide 0.5 % 1 applic topical TID PRN Rash #30 09/24/22 11/04/22 Unknown Rx topical cream grams Allergies Allergy/AdvReac Type Severity Reaction Status Date / Time No Known Allergies Allergy Verified 11/04/22 09:09 [facility] Anesthesia Medical History Atherosclerosis of coronary artery Generalized osteoarthritis Immunosuppression Microcytic anemia Microcytic hypochromic anemia Psoriasis Psoriatic arthritis ST elevation [place] (STEMI) Social History Smoking and tobacco status: former smoker Second hand smoke exposure: No Alcohol intake: current Alcohol intake frequency: few times a month Alcohol type: beer Substance/Drug Use: never Marital status: Number of children: 2 Current occupational status: employed 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
[2022-11-11] VITALS (17 sets, daily range): BP systolic 85–130; BP diastolic 60–92; PULSE 80–99; RESP 16–18; TEMP 36.2–36.9; O2SAT 92–99
[2022-11-11] MEDS: acetaminophen 1,000 MG/100 ML PIGGYBACK 400 MG IV ×2 (09:16→18:11)
[2022-11-11] MEDS: sodium chloride 0.9% 1,000 ML 30 ML IV (09:16)
[2022-11-11] MEDS: gabapentin 300 mg Capsule PO ×2 (09:17→21:00)
[2022-11-11] MEDS: CELEcoxib 200 mg Capsule 400 MG PO (09:17)
[2022-11-11] MEDS: midazolam 1 mg/mL INJ 2 mL 2 MG IVP (09:51)
--- NOTE | 2022-11-11 10:21 | P.ANESUD_ITS ---
Pre-Anesthetic Update Pre-Anesthetic Assessment: Date of Surgery/Procedure: 11/11/22 Preop Heather gnosis: Primary osteoarthritis right knee Proposed Procedure: Operation Date: 11/11/22 10:45 Proposed Procedures p LEFT TOTAL KNEE ARHTORPLASTY WITH JACY GUIDANCE 54227,M17.10(Left) - Pauline Melendrez MD Any changes to Pre-Anesthetic Assessment?: No Last Intake: Intake Last Liquid Date 11/10/22 Last Liquid Time 23:00 Last Solid Date 11/10/22 Last Solid Time 17:00 Vitals: Temperature 97.4 F L 11/11/22 08:48 Temperature Source Temporal Artery S can 11/11/22 08:48 Pulse Rate 99 11/11/22 08:48 Respiratory Rate 18 11/11/22 08:48 Blood Pressure 130/89 11/11/22 08:48 Blood Pressure Teresa n 102 11/11/22 08:48 Pulse Oximetry 96 11/11/22 08:48 Oxygen Delivery Me thod Room Air 11/11/22 09:10 Exam: Pre-Anes Outpt Exam: alert, oriented x 3, clear to auscultation bilaterally and regular rate & rhythm Cardiac Studies: Echocardiogram 03/11/21
--- NOTE | 2022-11-11 10:22 | ANES.PROC ---
Anesthesia Procedures Procedure/Date: 11/11/22 Nerve Block ^: Nerve Block 1: Main Anesthesia: spinal anesthesia block Time Out Performed: Yes Consent: requested by attending/covering physician, from patient, from other, risks and benefits reviewed and patient agrees to proceed Nerve block location: adductor canal (L) Anesthesia monitors applied: pulse oximetry, EKG and BP cuff Nerve block position: supine Anesthetic Used: ropivicaine 0.5% (30 ml) and with decadron (4 mg) Ultrasound used to: recognize landmarks and visualize and ID femerol nerve Nerve Stimulator Used?: No Interscalene/Femoral BLK: 4 stimuplex 21 g needle used for position and inplane approach, visualize local anesthetic spread and no vascular puncture identified Injection: neg aspiration of heme Patient Tolerated Procedure: well and no complications Complications: none
--- NOTE | 2022-11-11 10:24 | P.HPUD_ITS ---
Surgery/Procedure H&P Update DATE OF PROCEDURE: November 11, 2022 DATE H&P PERFORMED: 11/07/22 H&P UPDATE INFORMATION: I have reviewed H&P completed within last 30 days, I have examined patient prior to procedure, No changes to prior documentation and [place] [facility] indicated PREOP DIAGNOSIS: Primary osteoarthritis right knee PLANNED PROCEDURE: Operation Date: 11/11/22 10:45 Proposed Procedures p LEFT TOTAL KNEE ARHTORPLASTY WITH JACY GUIDANCE 50749,M17.10(Left) - Pauline Melendrez MD Related Problem List Diagnoses (1) Primary osteoarthritis of left knee:
[2022-11-11] MEDS: ceFAZolin 2,000 MG in sodium chloride 0.9% (plus) 50 ML 100 MG IV ×2 (11:10→18:18)
[2022-11-11] MEDS: tranexamic acid 1,000 mg/10mL SDV 1000 MG IV (11:45)
[2022-11-11] MEDS: vancomycin 1,000 MG SDV 1000 MG IRRIGATION (12:35)
[2022-11-11] MEDS: ceFAZolin 1,000 mg SDV 1000 MG IRRIGATION (12:37)
--- NOTE | 2022-11-11 14:38 | XRR_ITS ---
PROCEDURE INFORMATION: Exam: XR Left Knee Exam date and time: 11/11/2022 2:45 PM Age: 52 years old Clinical indication: Device placement; Joint replacement hardware; Prior surgery; Surgery date: Post-operative (0-2 days); Surgery type: Left total knee arthroplasty; Additional info: Status post left total knee arthroplasty TECHNIQUE: Imaging protocol: Radiologic exam of the left knee. Views: 1 or 2 views. COMPARISON: CT knee LT [facility] 10/14/2022 7:41 AM FINDINGS: Bones/joints: Recently placed left total knee arthroplasty noted in expected alignment. Soft tissues: Soft tissue swelling and gas noted along the anterior knee with overlying skin jose juan consistent with recent surgical procedure. XR/XR knee LT 1-2V [id number] IMPRESSION: Recently placed left total knee arthroplasty in expected alignment.
--- NOTE | 2022-11-11 15:28 | PC.NURSE ---
RECEIVED FROM PACU TO EXTENDED CARE. REPORT RECEIVED FROM LIZA WINKLER RN. SCD'S ON AND WORKING. PT DRINKING A COKE. CALL LIGHT IN HER LAP. RATED PAIN 0/10.
--- NOTE | 2022-11-11 16:19 | ANE.PACU2 ---
Inpatient post-anesthesia follow up: Airway intact: Yes Vital signs: Temperature 97.1 F Pulse Rate 94 Respiratory Rate 18 Blood Pressure 114/92 Pulse Oximetry 98 Oxygen Delivery Me thod Room Air Oxygen Flow Rate Fraction of Inspir ed Oxygen Hydration adequate: Yes Nausea and vomiting: No Pain level: 1 Mental status: Baseline
--- NOTE | 2022-11-11 16:58 | PC.NURSE ---
report given to DARCI, PT TRANPORTED TO ROOM [id number] VIA BED AND CARE TURNED OVER.
--- NOTE | 2022-11-11 16:59 | PC.NURSE ---
foot pumps remained on bilaterally and working until transfer
--- NOTE | 2022-11-11 17:49 | PM.OP ---
Operative Report Date of procedure: November 11, 2022 Pre-op diagnosis: Primary osteoarthritis right knee with flexion contracture, severe Post-op diagnosis: Primary osteoarthritis right knee with flexion contracture, severe Post-op findings: Large osteophytes with significant degenerative osteoarthritis and flexion contracture of 17 degrees Procedure done: Left total knee arthroplasty with Tyshawn guidance Implants: The [employer] total knee system with a size 4 triathlon beaded cruciate retaining femur left, a triathlon titanium tibial component size 4 beaded, a triathlon X3 tibial bearing CS insert size 4 X 11 mm and a beaded triathlon titanium asymmetric patella size 32 x 10 mm Specimens removed/disposition: Bone, disposed of Pathology: none sent Surgeon: Pauline Melendrez Advice Nurse: [facility] operating room technicians Anesthesia: MAC (With spinal and adductor block, ASA 3) Estimated blood loss (mL): 500 Tourniquet time (min): 0 (Not utilized) IV fluids (mL): 1,200 Urine output (mL): 150 Complications: None Condition: stable Disposition: PACU (Then to floor for pain management and rehabilitation) Brief History: This is an established 52 year old female patient here today for right total knee arthroplasty with Tyshawn guidance. Patient states her pain has worsened since her last visit. She rated her pain a 6/10 at her last office visit. She reports difficulty walking. Previously, on August 12, 2022, the patient underwent right total knee arthroplasty, and she has done well with this. In the office, consents were signed and questions were answered. She understands the risks and complications and wishes to proceed. Procedure: The patient was brought to the operating theater, and after undergoing spinal anesthesia with supplemental MAC, as well as an adductor canal block, ASA 3, the left lower extremity was prepped with Dura-Prep and draped in usual fashion following placement of a tourniquet high on the leg. The leg was then draped free. ? A surgical pause was performed. At the time of the surgical pause, we confirmed the site and side of surgery. Additionally, we confirmed the appropriate and timely administration of preoperative antibiotics, Ancef 2 g and Transexemic acid 1 g.? The availability of equipment was confirmed, and the patient's identity was verbalized as well. Following the surgical pause, an incision was made centering over the patella continuing proximally and distally as necessary to allow access to the knee joint. Dissection continued through skin and soft tissues using a scalpel. Hemostasis was obtained using electrocautery. The skin incision was followed by a median parapatellar arthrotomy. The leg was extended and the patella was able to be displaced laterally.? Appropriate arrays and markers were placed in appropriate position for use of the Tyshawn.? Preoperative planning had been accomplished and was discussed in detail with the [facility] technical account representative.? Intraoperative mapping of the femur and tibia was accomplished after the arrays were placed.? Internal markers were also placed.? Once we had accomplished the Tyshawn mapping, we began the appropriate resections for placement of the prosthesis.? The plan was for a cruciate retaining right total knee arthroplasty. Once appropriate mapping had been accomplished retraction was established using manual retraction by surgical technicians and also the [facility] leg positioner and retractors.? The knee was evaluated.? There was a significant osteoarthritic change.? Appropriate bone resection was accomplished using the Tyshawn.? The femur was sized to a size 4.? Following femoral cuts, attention was directed to the tibia.? Osteophytes were removed prior to this portion of the procedure.? We had performed a minimal medial release at the beginning of the procedure to allow for placement of the array.? Proximal tibia was evaluated and it was felt that appropriate size for the tibia was a size 4. A trial reduction was accomplished after osteophytes have been removed as well as the medial and lateral menisci.? We had removed the anterior cruciate ligament at the beginning of the case and preserved the posterior cruciate ligament.? Medial release had been accomplished as well.? Trial reduction was accomplished with a size 4 femoral cruciate retaining component and a size 4 CS tibial bearing insert which was 9 mm in thickness which gave excellent varus valgus stability and full extension.? Alignment was felt to be appropriate as well.? As the patient had a varus deformity as well as flexion contracture preoperatively, soft tissue releases were accomplished.? Posterior release was also accomplished.? The actual implanted size 4 CS tibial insert was 11 mm in thickness. We trialed intraoperatively a 10 mm insert, and subsequently increased to a size 11. Trial components were removed after the femur had been drilled.? Prior to removal of the tibial tray which had been pinned in position with appropriate rotation as determined by the Tyshawn plan, we broached the tibia.? Subsequently, the 4 drill holes were made for the prosthetic component.? All trial components were removed, and the wound was irrigated.? Plans were made for insertion of the prosthetic components.? Prior to this, the patella was manually prepared.? After resection of the articular surface with the jogging system, it was measured and measured a 32 mm patella.? We resected approximately 9 mm of patella and patellar height was restored with the patellar component. Once again, the wound was irrigated.? The Tritanium tibia was impacted into position.? The beaded femur was then impacted into position in a cementless fashion. The CS tibial insert was placed prior to placement of the femoral component. The patella was pressed into position with a patellar clamp.? Exparel was injected about the components deep and superficially.? The knee was then copiously irrigated with betadine and saline and suctioned dry. Attention was then directed to closure. Closure was accomplished with 0 Vicryl in the fascial tissues.? This was followed by Surgiflo and vancomycin powder.? Following this, a 2-0 Monocryl was used in the subcutaneous tissues, and the skin was closed with skin jose juan.? Care was taken to assure an excellent subcutaneous as well as skin closure.? A sterile dressing was then placed consisting of Dermabond Prineo, OpSite, sterile soft roll including over the foot, and an Jose Carlos wrap. The patient was returned the Recovery Room in a satisfactory condition. X-rays were obtained and reviewed there.? The patient will be discharged to the floor for postoperative rehabilitation and pain management. Related Problem List Diagnoses (1) Primary osteoarthritis of left knee: (2) Status post total left knee replacement not using cement:
[2022-11-11] MEDS: oxyCODONE 5 mg IR Tab/Cap PO (18:11)
[2022-11-11] MEDS: iron polysaccharide complex 150 mg Capsule PO (18:12)
[2022-11-11] MEDS: sennosides-docusate Tablet 2 TAB PO (18:12)
[2022-11-11] MEDS: chlorhexidine gluconate 0.12% UDC 15 mL 30 ML MUCOUS MEM ×2 (18:12→21:07)
[2022-11-11] MEDS: mupirocin oint 22 gm 1 APPLIC NASAL (18:13)
[2022-11-11] MEDS: calcium carbonate 500 mg Chew Tablet 1000 MG PO (21:00)
[2022-11-11] MEDS: CELEcoxib 200 mg Capsule PO (21:00)
[2022-11-11] MEDS: ondansetron 2 mg/ML SDV 2 mL 4 MG IVP (23:37)
[2022-11-12] MEDS: acetaminophen 1,000 MG/100 ML PIGGYBACK 400 MG IV ×2 (01:23→08:44)
[2022-11-12] MEDS: ceFAZolin 2,000 MG in sodium chloride 0.9% (plus) 50 ML 100 MG IV ×2 (03:28→11:23)
[2022-11-12 03:58] VITALS: BP 102/70; PULSE 82; RESP 17; TEMP 36.7; O2SAT 94
[2022-11-12 04:03] LABS: Basophils % 0.5 %; Eosinophils % 0.2 %; Hematocrit 27.5 % (37.0-47.0); Hemoglobin 8.6 g/dL (11.5-15.3); Lymphocytes # 1.2 10^3/uL (0.8-4.8); Lymphocytes % 17.7 %; Mean Corpuscular HGB Conc 31.3 g/dL (30.0-36.0); Mean Corpuscular Hemoglobin 26.2 pg (28.0-34.0); Mean Corpuscular Volume 83.8 fl (81-99); Mean Platelet Volume 9.6 fL (7.4-10.4); Monocytes # 0.7 10^3/uL (0.2-0.9); Monocytes % 11.1 %; Neutrophils # 4.57 10^3/uL (1.8-7.7); Neutrophils % 70.3 %; Nucleated Red Blood Cells % 0 %; Platelet Count 298 10^3/cmm (130-400); Red Blood Count 3.28 10^6/uL (4.1-5.3); Red Cell Distribution Width 15.5 % (12.1-15.1); White Blood Count 6.5 10^3/uL (4.0-10.0)
[2022-11-12 04:27] LABS: Anion Gap 16.8 (5-19); Blood Urea Nitrogen 10 mg/dL (6-20); Calcium 8.5 mg/dL (8.5-10.5); Carbon Dioxide 20 mmol/L (22-29); Chloride 101 mmol/L (98-107); Glucose 114 mg/dL (65-115); Osmolality Calculated 278 mOsm/kg (285-295); Potassium 3.8 mmol/L (3.5-5.1); Sodium 134 mmol/L (136-145)
[2022-11-12 04:50] LABS: Slide Review Slide Review Perform
[2022-11-12 06:14] VITALS: RESP 18; O2SAT 94
[2022-11-12] MEDS: oxyCODONE 5 mg IR Tab/Cap PO ×2 (06:14→11:16)
--- NOTE | 2022-11-12 06:41 | PC.NURSE ---
swan removed at 0600, pt tolerated without difficulty
[2022-11-12] MEDS: ondansetron 2 mg/ML SDV 2 mL 4 MG IVP ×2 (08:38→14:43)
[2022-11-12] MEDS: gabapentin 300 mg Capsule PO ×2 (08:39→14:44)
[2022-11-12] MEDS: cholecalciferol (vitamin D3) 1,000 unit Tablet 1000 UNIT PO (08:39)
[2022-11-12] MEDS: venlafaxine ER (24HR) 150 mg Capsule PO (08:39)
[2022-11-12] MEDS: sennosides-docusate Tablet 2 TAB PO (08:39)
[2022-11-12] MEDS: atorvastatin 40 mg Tablet 80 MG PO (08:39)
[2022-11-12] MEDS: aspirin 325 mg EC Tablet PO (08:39)
[2022-11-12] MEDS: multivitamin therapeutic Tablet 1 TAB PO (08:39)
[2022-11-12] MEDS: chlorhexidine gluconate 0.12% UDC 15 mL 30 ML MUCOUS MEM ×2 (08:39→13:01)
[2022-11-12] MEDS: CELEcoxib 200 mg Capsule PO (08:40)
[2022-11-12] MEDS: iron polysaccharide complex 150 mg Capsule PO (08:40)
[2022-11-12] MEDS: mupirocin oint 22 gm 1 APPLIC NASAL (09:51)
[2022-11-12] MEDS: calcium carbonate 500 mg Chew Tablet 1000 MG PO (09:51)
[2022-11-12 11:16] VITALS: RESP 16
[2022-11-12] MEDS: hyDROXYzine 25 mg Capsule PO (12:25)
--- NOTE | 2022-11-12 13:38 | PM.DCS ---
Discharge Providers Date of Admission: 11/11/22 16:54 Date of Discharge: November 12, 2022 Attending Provider at Admission: Pauline Melendrez MD Attending Provider at Discharge: Pauline Melendrez MD Primary Care Provider: Colt Adams MD Diagnoses at Discharge Discharge Diagnosis (1) Primary osteoarthritis of left knee: Status: Acute (2) Status post total left knee replacement not using cement: Status: Acute Permanent problem details: Date of procedure: November 11, 2022 Pre-op diagnosis: Primary osteoarthritis left knee with flexion contracture Procedure done: Left total knee arthroplasty with Tyshawn guidance Implants: The [employer] total knee system with a size 4 triathlon beaded cruciate retaining femur right, a triathlon titanium tibial component size 4 beaded, a triathlon X3 tibial bearing CS insert size 4 X 9 mm and a beaded triathlon titanium asymmetric patella size 32 x 10 mm Reason for Visit Reason for Visit: M17.10 Brief History: This is an established 52 year old female patient here today for right total knee arthroplasty with Tyshawn guidance. Patient states her pain has worsened since her last visit. She rated her pain a 6/10 at her last office visit. She reports difficulty walking.? Previously, on August 12, 2022, the patient underwent right total knee arthroplasty, and she has done well with this.? In the office, consents were signed and questions were answered.? She understands the risks and complications and wishes to proceed. Hospital Course Hospital Course Patient was admitted under observation status on the day of surgery. She did well that evening. She had some nausea with pain medication the following morning, but she had worked with physical therapy and was doing well. She was felt to be independent and safe for discharge to home. Arrangements were made, and the patient was discharged home on the first postoperative day. She will follow-up with me in the office as scheduled. Physical Exam Const: COMMON NORMALS: no acute distress, average body habitus, patient oriented x3 and alert GENERAL APPEARANCE: cooperative and comfortable ORIENTATION/CONSCIOUSNESS: Yes awake HENMT: COMMON NORMALS: normocephalic and atraumatic HEAD & SCALP: normocephalic and atraumatic Eye: GENERAL EYE: appearance normal, both eyes and all related structures Chest: COMMONS NORMALS: normal inspection of the chest Resp: COMMON NORMALS: normal respiratory effort EFFORT & INSPECTION: Yes able to speak in complete sentences and Yes symmetric chest movement Extremity: LEFT LOWER EXTREMITY: Yes knee joint (Dressings were removed down to the OpSite) Left knee: Yes inspection (Minimal to no swelling or ecchymosis) and Yes neurovascular exam (Intact distally with no evidence of DVT.) Neuro: COMMON NORMALS: patient oriented x3 SENSORIUM/ORIENTATION: Yes alert Psych: COMMON NORMALS: mental status grossly normal APPEARANCE: Yes grossly normal ATTITUDE: Yes calm and Yes engaged ATTENTION/CONCENTRATION: Yes attention grossly intact Skin: COMMON NORMALS: no rashes or lesions noted GENERAL SKIN EXAM: no rashes or lesions noted Urinary Catheter Management: Jonas: Cath Placed During This Visit: yes, but has since been removed by the nurse Reason for Continuing Indwelling Catheter: Acute Urinary Retention or Obstruction Urinary Catheter Date of Insertion: 11/11/22 Urinary Catheter Time of Insertion: 11:30 Date Urinary Catheter Removed: 11/12/22 Time Urinary Catheter Discontinued: 06:07 Discharge Data Studies Completed and Pending Completed Studies During Hospitalization Category Date Time Status XR knee LT 1-2V 33211 Routine Exams 11/11/22 14:38 Completed Pending at discharge Category Date Time Status Pathology: Surgical [PTH] Routine Pth 11/11/22 12:22 Received Radiology Impressions Knee X-Ray 11/11/22 14:38 IMPRESSION: Recently placed left total knee arthroplasty in expected alignment. Laboratory Results WBC 6.5 10^3/uL (4.0-10.0) 11/12/22 03:22 RBC 3.28 10^6/uL (4.1-5.3) L 11/12/22 03:22 Hgb 8.6 g/dL (11.5-15.3) L 11/12/22 03:22 Hct 27.5 % (37.0-47.0) L 11/12/22 03:22 MCV 83.8 fl (81-99) 11/12/22 03:22 MCH 26.2 pg (28.0-34.0) L 11/12/22 03:22 MCHC 31.3 g/dL (30.0-36.0) 11/12/22 03:22 RDW 15.5 % (12.1-15.1) H 11/12/22 03:22 Plt Count 298 10^3/cmm (130-400) 11/12/22 03:22 MPV 9.6 fL (7.4-10.4) 11/12/22 03:22 Neut % (Auto) 70.3 % 11/12/22 03:22 Lymph % (Auto) 17.7 % 11/12/22 03:22 [place] % (Auto) 11.1 % 11/12/22 03:22 Eos % (Auto) 0.2 % 11/12/22 03:22 Baso % (Auto) 0.5 % 11/12/22 03:22 Neut # (Auto) 4.57 10^3/uL (1.8-7.7) 11/12/22 03:22 Lymph # (Auto) 1.2 10^3/uL (0.8-4.8) 11/12/22 03:22 [place] # (Auto) 0.7 10^3/uL (0.2-0.9) 11/12/22 03:22 Eos # (Auto) 0.0 10^3/uL (0.0-0.8) 11/12/22 03:22 Baso # (Auto) 0.0 10^3/uL (0.0-0.1) 11/12/22 03:22 Nucleated RBC % (auto) 0 % 11/12/22 03:22 Nucleated RBCs # 0.0 /100WBC 11/12/22 03:22 Sodium 134 mmol/L (136-145) L 11/12/22 03:22 Potassium 3.8 mmol/L (3.5-5.1) 11/12/22 03:22 Chloride 101 mmol/L (98-107) 11/12/22 03:22 Carbon Dioxide 20 mmol/L (22-29) L 11/12/22 03:22 Anion Gap 16.8 (5-19) 11/12/22 03:22 BUN 10 mg/dL (6-20) 11/12/22 03:22 Creatinine 0.8 mg/dL (0.5-0.9) 11/12/22 03:22 GFR Calculation 75.0 mL/min (90-130) L 11/12/22 03:22 Glucose 114 mg/dL (65-115) 11/12/22 03:22 Calculated Osmolality 278 mOsm/kg (285-295) L 11/12/22 03:22 Calcium 8.5 mg/dL (8.5-10.5) 11/12/22 03:22 Urine Color Yellow (Yellow) 11/04/22 09:26 Urine Appearance Clear (CLEAR) 11/04/22 09:26 Urine pH 5 (5-7) 11/04/22 09:26 Ur Specific [place] 1.020 (1.005-1.030) 11/04/22 09:26 Urine Protein Neg (Negative) 11/04/22 09:26 Urine Glucose (UA) Norm (Normal) 11/04/22 09:26 Urine Ketones Negative (Negative) 11/04/22 09:26 Urine Blood Neg (Negative) 11/04/22 09:26 Urine Nitrate Negative (Negative) 11/04/22 09:26 Urine Bilirubin Neg (Negative) 11/04/22 09:26 Urine Urobilinogen Neg mg/dL (Negative) 11/04/22 09:26 Ur Leukocyte Esterase Negative (Negative) 11/04/22 09:26 Vitals Last Vital Signs Temp 98.1 F 11/12/22 03:58 Pulse 82 11/12/22 03:58 Resp 16 11/12/22 11:16 BP 102/70 11/12/22 03:58 Pulse Ox 94 11/12/22 06:14 O2 Del Method Room Air 11/11/22 19:20 Discharge Plan Discharge Patient Disposition: Home Health Service Condition: Stable Prescriptions: New celecoxib 200 mg Capsule 200 mg PO 1XD 30 Days Qty: 30 0RF acetaminophen 500 mg Tablet 1,000 mg PO Q8H 15 Days Qty: 90 0RF aspirin 325 mg Tablet,Delayed Release (Dr/Ec) 325 mg PO DAILY 30 Days Qty: 90 0RF tramadol 50 mg tablet 50 mg PO Q8H PRN (Reason: pain) 7 Days Qty: 30 0RF Continued cholecalciferol (vitamin D3) 50 mcg (2,000 unit) capsule 50 mcg PO DAILY folic acid 400 mcg tablet 0.4 mg PO DAILY nitroglycerin 0.4 mg tablet, sublingual 0.4 mg sublingual Q5M PRN (Reason: chest pain) Qty: 25 2RF Rx Instructions: do not exceed 3 doses per episode diclofenac sodium [Voltaren Arthritis Pain] 1 % gel 4 g topical QID Qty: 100 3RF Rx Instructions: apply to single knee, ankle, foot; for foot includes sole/toes/top of foot vitamin B complex [B Complex-Vitamin B12] Tablet 1 tab PO DAILY triamcinolone acetonide 0.5 % cream 1 applic topical TID PRN (Reason: Rash) Qty: 30 0RF atorvastatin 80 mg tablet 80 mg PO DAILY hydroxyzine HCl 25 mg tablet 25 mg PO Q6H PRN (Reason: Anxiety) Rx Instructions: 1/2 to 1 tab PO Q6H gabapentin 300 mg capsule 300 mg PO TID venlafaxine 150 mg capsule,extended release 24hr 150 mg PO DAILY Held naproxen 500 mg tablet 500 mg PO BID PRN (Reason: Pain) Qty: 60 2RF Hold Instructions: Resume on 12/10/22. After you have completed your prescription of Celebrex aspirin 81 mg tablet,delayed release (DR/EC) 81 mg PO DAILY Hold Instructions: Resume on 09/11/22. Discharge Orders: Discharge Order (Routine); Ordered 11/12/22 Ordered By: Pauline Melendrez Other Ambulatory Orders: Complete Blood Count w/Auto (Routine) Timeframe: 20221105 Facility: [facility] - Location: Lab - Main Lab Ordered By: Pauline Melendrez Comprehensive Metabolic Panel (Routine) Timeframe: 20221105 Facility: [facility] - Location: Lab - Main Lab Ordered By: Pauline Melendrez Hemoglobin A1C (Routine) Timeframe: 20221105 Facility: [facility] - Location: Lab - Main Lab Ordered By: Pauline Melendrez Referrals: [facility] [Outside] Pauline Melendrez MD [Physician] - 11/25/22 8:45 am Discharge Diet: Advance as tolerated and Usual diet Discharge Activity: Increase activity as tolerated, Limit activity as instructed, Use walker/crutches as instructed and As per PT/OT instructions Patient Instructions: Aspirin (By mouth), Tramadol (By mouth), Celecoxib (By mouth), Joint Replacement Surgery (DC), Knee Replacement (GEN) Activity Restrictions/Additional Instructions: Ice and elevate. Range of motion, gait training, and strengthening per physical therapy, home health. You may weight-bear as tolerated. Leave your dressing in place. Discharge Attestations Time Spent in Discharge Care*: greater than 30 min Specific Discharge Activities: educating patient, documenting/other paperwork and evaluating patient/reviewing data Quality Metrics Clinical Quality Measures [ No reported AMI, CVA or VTE this stay] Coding Level of Care Code Acute Code for Chg Fwd Diagnoses Primary osteoarthritis of left knee M17.12 Status post total left knee replacement not using cement Z96.652
[2022-11-12 14:54] VITALS: RESP 16
== END 2022-11-12 15:05 | disposition home health service (06) ==
LOC: MEDSURG 19:23
PROVIDERS: Admitting Provider Specialist; PCP Family Medicine; Visit Provider Specialist
PROC: 8E0Y0CZ Robotic Assisted Procedure of Lower Extremity, Open Approach (ICD-10-PCS; CPT 27447; principal; 2022-11-11 10:45)
DX: M17.12 Unilateral primary osteoarthritis, left knee (principal); I25.10 Atherosclerotic heart disease of native coronary artery without angina pectoris; Z95.5 Presence of coronary angioplasty implant and graft; D64.9 Anemia, unspecified; I10 Essential (primary) hypertension; I25.2 Old myocardial infarction; E11.40 Type 2 diabetes mellitus with diabetic neuropathy, unspecified; E78.5 Hyperlipidemia, unspecified; E66.01 Morbid (severe) obesity due to excess calories; Z68.33 Body mass index [BMI] 33.0-33.9, adult; Z79.82 Long term (current) use of aspirin; Z87.891 Personal history of nicotine dependence
CPT/HCPCS: 20985; 27447; 36415; 51702; 73560; 80048; 81003; 85025; 88305; 97110; 97116; 97161; 97165; C1713; C1776; C9290; G0378; J0131; J0690; J1100; J2250; J2370; J2405; J2704; J2795; J3010; J3370; J3490; J7030

== ENCOUNTER → 2022-11-19 10:58 | Outpatient (BNVA) | payer MEDICAID, SELFPAY | PROVIDERS: PCP Family Medicine; Visit Provider Specialist | DX: Z96.653 Presence of artificial knee joint, bilateral | CPT/HCPCS: 73560; 73565 ==

== ENCOUNTER → 2022-12-10 11:40 | Outpatient (BNVA) | payer MEDICAID, SELFPAY | PROVIDERS: PCP Family Medicine; Visit Provider Internal Medicine | DX: R10.9 Unspecified abdominal pain (principal); M54.2 Cervicalgia; M47.892 Other spondylosis, cervical region | CPT/HCPCS: 72040 ==

== ENCOUNTER 2022-12-10 13:58 | Outpatient (RCR) | payer MEDICAID, SELFPAY | END 2022-12-26 23:59 | disposition home or self-care (01) | LOC: SPT 13:58 | PROVIDERS: PCP Family Medicine; Visit Provider Specialist | DX: Z47.1 Aftercare following joint replacement surgery (principal); Z96.652 Presence of left artificial knee joint | CPT/HCPCS: 97110; 97161 ==

== ENCOUNTER → 2022-12-24 07:43 | Outpatient (BNVA) | payer OTHER, SELFPAY | PROVIDERS: PCP Family Medicine; Visit Provider Nurse Practitioner Family | DX: Z96.652 Presence of left artificial knee joint (principal) | CPT/HCPCS: 73560; 73565 ==

== ENCOUNTER 2022-12-27 06:00 | Outpatient (RCR) | payer MEDICAID, SELFPAY | END 2023-01-09 23:59 | disposition home or self-care (01) | LOC: SPT 06:00 | PROVIDERS: PCP Family Medicine; Visit Provider Specialist | DX: Z47.89 Encounter for other orthopedic aftercare (principal) | CPT/HCPCS: 97110 ==

== ENCOUNTER 2022-12-31 12:07 | Oncology outpatient (recurring) (ONCR) | payer MEDICAID, SELFPAY ==
[2022-12-31 12:12] VITALS: BP 130/86; PULSE 80; RESP 18; TEMP 36; O2SAT 96
[2022-12-31 12:21] LABS: Basophils # 0.1 10^3/uL (0.0-0.1); Basophils % 0.7 %; Eosinophils # 0.4 10^3/uL (0.0-0.8); Hemoglobin 10.7 g/dL (11.5-15.3); Lymphocytes # 2.3 10^3/uL (0.8-4.8); Lymphocytes % 25.7 %; Mean Corpuscular HGB Conc 30.6 g/dL (30.0-36.0); Mean Corpuscular Hemoglobin 25.5 pg (28.0-34.0); Mean Corpuscular Volume 83.5 fl (81-99); Monocytes # 0.5 10^3/uL (0.2-0.9); Monocytes % 5.5 %; Neutrophils # 5.82 10^3/uL (1.8-7.7); Neutrophils % 63.9 %; Nucleated Red Blood Cells % 0 %; Platelet Count 435 10^3/cmm (130-400); Red Blood Count 4.19 10^6/uL (4.1-5.3); Red Cell Distribution Width 17.2 % (12.1-15.1); White Blood Count 9.1 10^3/uL (4.0-10.0)
[2022-12-31 12:36] LABS: Ferritin 284 ng/mL (15-150); Iron 24 ug/dL (37-145); Percent Saturation 15.3 % (20-50); Total Iron Binding Capacity 156 mcg/dl; Unsaturated Iron Binding 132 ug/dL (112-347)
== END 2023-01-26 23:59 | disposition home or self-care (01) ==
PROVIDERS: PCP Family Medicine; Visit Provider Internal Medicine Hematology & Oncology
DX: D50.9 Iron deficiency anemia, unspecified (principal)
CPT/HCPCS: 36415; 82728; 83540; 83550; 85025

== ENCOUNTER 2023-02-05 14:42 | Outpatient (CLI) | payer MEDICAID, SELFPAY ==
--- NOTE | 2023-02-05 15:15 | USCV_ITS ---
Jayla Alvarez Age: 52 Gender: F : 1970 Exam Date: 02/05/2023 15:42 Ordering Phys: Genny Nicholas Technologist: RADHIKA [place] [facility] [place]: MV regurgitation, CAD BP: / HR: 74 Rhythm: Sinus Technical Quality: Good MEASUREMENTS (Male / Female) Normal Values 2D ECHO LV Diastolic Diameter PLAX 3.7 cm 4.2 - 5.9 / 3.9 - 5.3 cm LV Systolic Diameter PLAX 2.8 cm IVS Diastolic Thickness 1.1 cm 0.6 - 1.0 / 0.6 - 0.9 cm IVS Systolic Thickness 1.1 cm LVPW Diastolic Thickness 1.6 cm 0.6 - 1.0 / 0.6 - 0.9 cm LVPW Systolic Thickness 1.6 cm LVOT Diameter 2.0 cm LV Ejection Fraction 2D Teich 50.2 % LV Ejection Fraction MOD 2C 67.7 % LV Ejection Fraction 2C AL 67.7 % LA Diameter 3.0 cm LA Width 4.2 cm LA Height 4.8 cm RA Width 2.8 cm RA Height 4.0 cm Aorta at Sinotubular Diameter 3.1 cm IVC Diameter 1.3 cm M-MODE Aortic Annulus Diameter 2.6 cm LA Ao Ratio MM 1.4 MV E Point Septal Separation 0.3 cm DOPPLER AV Peak Velocity 196.0 cm/s LVOT Peak Velocity 112.0 cm/s AV Area Cont Eq vti 1.9 cm squared AV Area Cont Eq pk 1.8 cm squared MV Peak Velocity 114.0 cm/s MV Area PHT 4.5 cm squared Mitral E to A Ratio 0.9 MV E' Velocity 48.0 cm/s Mitral E to MV E' Ratio 7.8 Mitral E to LV E' Lateral Ratio 6.2 Mitral E to LV E' Septal Ratio 10.6 TR Peak Velocity 135.5 cm/s TR Peak Gradient 7.3 mmHg Right Atrial Pressure 5.0 mmHg Pulmonary Artery Systolic Pressu 12.3 mmHg PV Peak Velocity 89.0 cm/s RV Acceleration Time 0.1 s RV Ejection Time 0.3 s RV AcT/ET 0.3 FINDINGS Left Ventricle Left ventricle is normal in size. LV systolic function is normal with EF 55 to 60%. No regional wall motion abnormalities are seen. Right Ventricle Normal in size and function Right Atrium Normal in size Left Atrium Normal in size Mitral Valve Structurally normal mitral valve. Mild mitral regurgitation. Aortic Valve Structurally normal aortic valve. Mild aortic regurgitation. Tricuspid Valve Mild tricuspid regurgitation. Insufficient TR jet to calculate RVSP. Pulmonic Valve Not well visualized Pericardium Normal Aorta Normal in size IVC Appears to be normal CONCLUSIONS LV systolic function is normal with EF 55 to 60%. Mild mitral regurgitation Mild aortic regurgitation Mild tricuspid regurgitation Compared to prior echocardiogram from 2020, no significant changes are seen Rell Harmon MD (Electronically Signed) Final Date: 22 February 2023 13:00 S
== END 2023-02-05 14:43 | disposition home or self-care (01) ==
PROVIDERS: PCP Family Medicine; Visit Provider Nurse Practitioner Family
DX: I34.0 Nonrheumatic mitral (valve) insufficiency (principal); I35.1 Nonrheumatic aortic (valve) insufficiency; I07.1 Rheumatic tricuspid insufficiency
CPT/HCPCS: 93306

== ENCOUNTER 2023-02-24 09:10 | Outpatient (CLI) | payer MEDICAID, SELFPAY ==
[2023-02-24 09:57] LABS: Alanine Aminotransferase 9 U/L (0-33); Albumin Level 3.7 g/dL (3.5-5.2); Alkaline Phosphatase 147 U/L (35-105); Aspartate Amino Transferase 6 U/L (0-32); Globulin 4.1 g/dL (1.3-4.6); Total Bilirubin 0.2 mg/dL (0.15-1.2); Total Protein 7.8 g/dL (6.6-8.7)
== END 2023-02-24 09:11 | disposition home or self-care (01) ==
LOC: LAB 09:22
PROVIDERS: Family Medicine; PCP Nurse Practitioner Family; Visit Provider Nurse Practitioner Family
DX: M51.16 Intervertebral disc disorders with radiculopathy, lumbar region (principal); M47.26 Other spondylosis with radiculopathy, lumbar region; E11.40 Type 2 diabetes mellitus with diabetic neuropathy, unspecified; G89.29 Other chronic pain; E78.5 Hyperlipidemia, unspecified; M47.816 Spondylosis without myelopathy or radiculopathy, lumbar region
CPT/HCPCS: 36415; 80076; 99214

== ENCOUNTER 2023-02-25 14:30 | Oncology outpatient (recurring) (ONCR) | payer MEDICAID, SELFPAY ==
[2023-01-28 11:58] VITALS: BMI 31.5
[2023-01-28 12:00] VITALS: BP 117/79; PULSE 74; RESP 18; TEMP 36.4; O2SAT 97
[2023-01-28 12:10] LABS: Basophils % 0.5 %; Eosinophils # 0.2 10^3/uL (0.0-0.8); Eosinophils % 2.4 %; Hematocrit 36.5 % (37.0-47.0); Hemoglobin 11.3 g/dL (11.5-15.3); Lymphocytes # 1.7 10^3/uL (0.8-4.8); Lymphocytes % 21.3 %; Mean Corpuscular Hemoglobin 25.3 pg (28.0-34.0); Mean Corpuscular Volume 81.8 fl (81-99); Mean Platelet Volume 9.1 fL (7.4-10.4); Monocytes # 0.4 10^3/uL (0.2-0.9); Monocytes % 4.8 %; Neutrophils # 5.49 10^3/uL (1.8-7.7); Neutrophils % 70.6 %; Nucleated Red Blood Cells % 0 %; Platelet Count 388 10^3/cmm (130-400); Red Blood Count 4.46 10^6/uL (4.1-5.3); Red Cell Distribution Width 15.6 % (12.1-15.1); White Blood Count 7.8 10^3/uL (4.0-10.0)
[2023-01-28 12:37] LABS: Alanine Aminotransferase 8 U/L (0-33); Albumin Level 3.9 g/dL (3.5-5.2); Alkaline Phosphatase 150 U/L (35-105); Anion Gap 15.9 (5-19); Aspartate Amino Transferase 9 U/L (0-32); Blood Urea Nitrogen 12 mg/dL (6-20); Calcium 9.1 mg/dL (8.5-10.5); Carbon Dioxide 23 mmol/L (22-29); Chloride 102 mmol/L (98-107); Ferritin 291 ng/mL (15-150); Glucose 110 mg/dL (65-115); Iron 24 ug/dL (37-145); Osmolality Calculated 284 mOsm/kg (285-295); Percent Saturation 11.3 % (20-50); Potassium 3.9 mmol/L (3.5-5.1); Sodium 137 mmol/L (136-145); Total Bilirubin 0.2 mg/dL (0.15-1.2); Total Iron Binding Capacity 212 mcg/dl; Total Protein 7.9 g/dL (6.6-8.7); Unsaturated Iron Binding 188 ug/dL (112-347)
[2023-02-25 14:29] VITALS: BP 125/88; PULSE 77; RESP 16; TEMP 36.4; O2SAT 96
[2023-02-25] MEDS: iron sucrose 200 MG in sodium chloride 0.9% (100 ml) 100 ML 220 MG IV (14:44)
--- NOTE | 2023-02-25 14:47 | PC.NURSE ---
Pre-Medications Acetaminophen and diphehydramine ordered by Dr. Patel as pre-medications for Venofer infusion. Pt refused pre-medications on 02/25/23.
[2023-02-25 15:20] VITALS: BP 110/73; PULSE 57; RESP 16; TEMP 36.8; O2SAT 99
== END 2023-02-26 23:59 | disposition home or self-care (01) ==
PROVIDERS: Nurse Practitioner Family; PCP Family Medicine; Visit Provider Internal Medicine Medical Oncology
DX: D50.9 Iron deficiency anemia, unspecified (principal); Z53.9 Procedure and treatment not carried out, unspecified reason
CPT/HCPCS: 36415; 80053; 82728; 83540; 83550; 85025; 96365; J1756

== ENCOUNTER 2023-03-09 13:00 | Oncology outpatient (recurring) (ONCR) | payer MEDICAID, SELFPAY ==
[2023-02-27 10:23] VITALS: BP 111/66; PULSE 85; RESP 17; TEMP 37.1; O2SAT 95
[2023-02-27] MEDS: iron sucrose 200 MG in sodium chloride 0.9% (100 ml) 100 ML 220 MG IV (11:10)
[2023-02-27 11:47] VITALS: BP 111/73; PULSE 77; RESP 16; TEMP 36.9; O2SAT 97
[2023-03-04 15:13] VITALS: BP 112/72; PULSE 80; RESP 17; TEMP 37.1; O2SAT 96
--- NOTE | 2023-03-04 15:21 | PC.NURSE ---
Patient stated that she no longer takes the diphehydramine or acetaminophen.
[2023-03-04] MEDS: iron sucrose 200 MG in sodium chloride 0.9% (100 ml) 100 ML 220 MG IV (15:23)
[2023-03-04 16:00] VITALS: BP 127/71; PULSE 80; RESP 16; TEMP 36.1; O2SAT 94
[2023-03-06 10:44] VITALS: BP 117/75; PULSE 85; RESP 16; TEMP 36.6; O2SAT 97
[2023-03-06] MEDS: iron sucrose 200 MG in sodium chloride 0.9% (100 ml) 100 ML 220 MG IV (11:02)
[2023-03-06 11:50] VITALS: BP 126/71; PULSE 77; RESP 18; TEMP 36.9; O2SAT 96
[2023-03-09 13:45] VITALS: BP 138/94; PULSE 81; RESP 16; TEMP 36.7; O2SAT 97
[2023-03-09] MEDS: iron sucrose 200 MG in sodium chloride 0.9% (100 ml) 100 ML 220 MG IV (13:45)
[2023-03-09 14:20] VITALS: BP 119/77; PULSE 78; RESP 16; TEMP 36.9; O2SAT 97
== END 2023-03-28 23:59 | disposition home or self-care (01) ==
PROVIDERS: PCP Family Medicine; Visit Provider Internal Medicine Medical Oncology
DX: D50.9 Iron deficiency anemia, unspecified (principal)
CPT/HCPCS: 96365; J1756

== ENCOUNTER → 2023-03-26 10:24 | Outpatient (BNVA) | payer MEDICAID, SELFPAY | PROVIDERS: PCP Family Medicine; Visit Provider Physician Assistant | DX: Z96.652 Presence of left artificial knee joint (principal) | CPT/HCPCS: 73560; 73565 ==

== ENCOUNTER 2023-03-27 06:57 | Day surgery (SDC) | payer MEDICAID, SELFPAY ==
--- NOTE | 2023-03-27 06:58 | P.HP_ITS ---
Providers/Chief Complaint Primary Care Provider: Colt Adams MD Chief Complaint: K52.9, K51.9 History of Present Illness Jayla Alvarez is a 52 year old female Review of Systems General: Reports: 10 or more systems reviewed and unremarkable except in HPI and below Medications/Allergies Home Medications Medication Instructions Recorded Confirmed Last Taken Type cholecalciferol (vitamin D3) 50 50 mcg PO DAILY 05/29/21 03/26/23 03/25/23 History mcg (2,000 unit) capsule folic acid 400 mcg tablet 0.4 mg PO DAILY 10/22/21 03/26/23 03/25/23 History nitroglycerin 0.4 mg sublingual 0.4 mg sublingual Q5M PRN chest 10/22/21 03/26/23 1 Day Ago Rx tablet pain #25 tabs ~11/03/22 vitamin B complex (B 1 tab PO DAILY 10/29/21 03/26/23 03/25/23 History Complex-Vitamin B12 tablet) aspirin 81 mg tablet,delayed 81 mg PO DAILY 08/04/22 03/26/23 03/25/23 History release naproxen 500 mg tablet 500 mg PO BID PRN Pain #60 tabs 09/24/22 03/26/23 03/25/23 Rx triamcinolone acetonide 0.5 % 1 applic topical TID PRN Rash #30 09/24/22 03/26/23 03/25/23 Rx topical cream grams atorvastatin 80 mg tablet 80 mg PO DAILY 11/05/22 03/26/23 03/25/23 History buspirone 10 mg tablet 10 mg PO BID 01/05/23 03/26/23 03/25/23 History trazodone 50 mg tablet 100 mg PO .HS PRN insomnia #60 tabs 01/06/23 03/26/23 03/25/23 Rx diclofenac sodium 1 % topical gel 4 g topical QID PRN Pain 01/28/23 03/26/23 03/25/23 History (Voltaren Arthritis Pain) estradiol 0.01% (0.1 mg/gram) 1 appful vaginal .COMPLEX 01/28/23 03/26/23 03/25/23 History vaginal cream gabapentin 300 mg capsule 300 mg PO TID PRN pain #100 caps 03/23/23 03/26/23 03/25/23 Rx Allergies Allergy/AdvReac Type Severity Reaction Status Date / Time No Known Allergies Allergy Verified 03/26/23 10:56 PFSH Acute PFSH: Medical History Abdominal pain Atherosclerosis of coronary artery Cervical pain Coronary artery disease Diabetes Essential hypertension Generalized osteoarthritis Hyperlipidemia Immunosuppression Microcytic anemia Microcytic hypochromic anemia Mitral regurgitation Psoriasis Psoriatic arthritis Psychiatric care ST elevation AL (STEMI) Surgical History History of esophagogastroduodenoscopy (EGD) 2020 Hx of colonoscopy 2020 Social History Smoking and tobacco status: former smoker Quit status (tobacco): has quit using tobacco Year quit tobacco: Feb 2021 Smoked for 40 y Second hand smoke exposure: No Alcohol intake: current Alcohol intake frequency: few times a month Alcohol type: beer Substance/Drug Use: never Marital status: Number of children: 2 Current occupational status: employed Current occupation: [employer] Assessment and plan (1) GERD (gastroesophageal reflux disease): (2) Chronic diarrhea: Plan EGD and colonoscopy Attestations Medical Necessity Statement*: Home Coding Level of Care Code Acute Code for g Fwd Diagnoses GERD (gastroesophageal reflux disease) K21.9 Chronic diarrhea K52.9
[2023-03-27 07:19] VITALS: BP 139/91; PULSE 88; RESP 18; TEMP 36.9; O2SAT 96
[2023-03-27] MEDS: sodium chloride 0.9% 1,000 ML 30 ML IV (07:22)
[2023-03-27 07:25] VITALS: BMI 31.1
--- NOTE | 2023-03-27 07:30 | ANES.PREANE2 ---
Pre-Anesthetic Assessment Height/Weight: Height 1.57 m Weight 77.111 kg Temp Pulse Resp BP Pulse Ox O2 Del Method 98.4 F 88 18 139/91 96 Room Air 03/27/23 07:19 03/27/23 07:19 03/27/23 07:19 03/27/23 07:19 03/27/23 07:19 03/27/23 07:19 Preop Diagnosis: reflux, screening Operation Date: 03/27/23 08:00 Proposed Procedures p [id number] egd [id number] colon k52.9,K51.9(Not Applicable) - Srinivas Downs DO s Colonoscopy(Not Applicable) - Srinivas Downs DO Was Beta Belinda taken within 24 hours: N/A Was Clonidine taken within 24 hours: N/A Last intake: Intake Last Liquid Date 03/26/23 Last Liquid Time 19:00 Last Solid Date 03/25/23 Last Solid Time 18:00 Social Tobacco and No alcohol last cig on thursday. occasional marijuana Exam alert, oriented x 3, clear to auscultation bilaterally and regular rate & rhythm Airway Submandibular: within normal limits Cervical ROM: within normal limits History/ROS No significant history except as noted Pulmonary smoker CV/HEM Coronary Artery Disease and Myocardial Infarction MR. stents after ME in 2020. sees cardiology again in May. no chronic anticoagulation. no CP/SOB. METS > 4 None reported Hepatic None reported GI Gastroesophageal Reflux Disease Metabolic None reported Musc/skel None reported Neuropsych Anxiety Anesthetic Plan ASA status: 3 Anesthesia: Anesthesia Evaluation and MAC Risk of > 500 ml blood loss (7ml/kg in children): Yes, adequate IV access and fluids planned Medications/Allergies Home Medications Medication Instructions Recorded Confirmed Last Taken Type cholecalciferol (vitamin D3) 50 50 mcg PO DAILY 05/29/21 03/26/23 03/26/23 History mcg (2,000 unit) capsule folic acid 400 mcg tablet 0.4 mg PO DAILY 10/22/21 03/26/23 03/25/23 History nitroglycerin 0.4 mg sublingual 0.4 mg sublingual Q5M PRN chest 10/22/21 03/26/23 1 Day Ago Rx tablet pain #25 tabs ~11/03/22 vitamin B complex (B 1 tab PO DAILY 10/29/21 03/26/23 03/25/23 History Complex-Vitamin B12 tablet) aspirin 81 mg tablet,delayed 81 mg PO DAILY 08/04/22 03/26/23 03/25/23 History release naproxen 500 mg tablet 500 mg PO BID PRN Pain #60 tabs 09/24/22 03/26/23 03/25/23 Rx triamcinolone acetonide 0.5 % 1 applic topical TID PRN Rash #30 09/24/22 03/26/23 03/25/23 Rx topical cream grams atorvastatin 80 mg tablet 80 mg PO DAILY 11/05/22 03/26/23 03/26/23 History buspirone 10 mg tablet 10 mg PO BID 01/05/23 03/26/23 03/26/23 History trazodone 50 mg tablet 100 mg PO .HS PRN insomnia #60 tabs 01/06/23 03/26/23 03/25/23 Rx diclofenac sodium 1 % topical gel 4 g topical QID PRN Pain 01/28/23 03/26/23 03/26/23 History (Voltaren Arthritis Pain) estradiol 0.01% (0.1 mg/gram) 1 appful vaginal .COMPLEX 01/28/23 03/26/23 03/25/23 History vaginal cream gabapentin 300 mg capsule 300 mg PO TID PRN pain #100 caps 03/23/23 03/26/23 03/25/23 Rx Allergies Allergy/AdvReac Type Severity Reaction Status Date / Time No Known Allergies Allergy Verified 03/27/23 07:08 Current Medications Generic Name Dose Route Start Last Admin Trade Name Freq PRN Reason Stop Dose Admin Sodium Chloride 1,000 mls @ 30 mls/hr 03/27/23 07:00 03/27/23 07:22 Sodium Chloride 0.9% IV 03/28/23 06:59 30 mls/hr .Q24H JUDI Administration PFSH Anesthesia Medical History Abdominal pain Atherosclerosis of coronary artery Cervical pain Coronary artery disease Diabetes Essential hypertension Generalized osteoarthritis Hyperlipidemia Immunosuppression Microcytic anemia Microcytic hypochromic anemia Mitral regurgitation Psoriasis Psoriatic arthritis Psychiatric care ST elevation [place] (STEMI) Surgical History History of esophagogastroduodenoscopy (EGD) 2020 Hx of colonoscopy 2020 Social History Smoking and tobacco status: former smoker Quit status (tobacco): has quit using tobacco Year quit tobacco: Feb 2021 Smoked for 40 y Second hand smoke exposure: No Alcohol intake: current Alcohol intake frequency: few times a month Alcohol type: beer Substance/Drug Use: never Marital status: Number of children: 2 Current occupational status: employed 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
[2023-03-27 08:49] VITALS: BP 81/68; PULSE 90; RESP 14; TEMP 36.6; O2SAT 93
[2023-03-27 09:00] VITALS: BP 101/74; PULSE 84; RESP 16; O2SAT 94
[2023-03-27 09:12] VITALS: BP 102/66; PULSE 87; RESP 16; O2SAT 95
--- NOTE | 2023-03-27 13:34 | ANE.PACU2 ---
Inpatient post-anesthesia follow up: Airway intact: Yes Vital signs: Temperature 97.8 F Pulse Rate 87 Respiratory Rate 16 Blood Pressure 102/66 Pulse Oximetry 95 Oxygen Delivery Me thod Room Air Oxygen Flow Rate Fraction of Inspir ed Oxygen Hydration adequate: Yes Nausea and vomiting: No Pain level: 2 Mental status: Baseline
== END 2023-03-27 09:21 | disposition home or self-care (01) ==
PROVIDERS: PCP Family Medicine; Visit Provider Surgery
PROC: 0DJ08ZZ Inspection of Upper Intestinal Tract, Via Natural or Artificial Opening Endoscopic (ICD-10-PCS; CPT 43235; principal; 2023-03-27 08:00)
PROC: 0DJD8ZZ Inspection of Lower Intestinal Tract, Via Natural or Artificial Opening Endoscopic (ICD-10-PCS; CPT 45378; 2023-03-27 08:00)
DX: K52.9 Noninfective gastroenteritis and colitis, unspecified (principal); K21.9 Gastro-esophageal reflux disease without esophagitis; K64.8 Other hemorrhoids; K22.2 Esophageal obstruction; K29.50 Unspecified chronic gastritis without bleeding; I25.10 Atherosclerotic heart disease of native coronary artery without angina pectoris; E11.9 Type 2 diabetes mellitus without complications; I10 Essential (primary) hypertension; E78.5 Hyperlipidemia, unspecified; I25.2 Old myocardial infarction; Z87.891 Personal history of nicotine dependence; Z95.5 Presence of coronary angioplasty implant and graft
CPT/HCPCS: 43239; 45380; 82274; 83630; 87045; 87177; 87209; 87324; 87427; 87449; 88305; 88342; J2704; J3010; J7030

== ENCOUNTER 2023-05-04 12:27 | Oncology outpatient (recurring) (ONCR) | payer MEDICAID, SELFPAY ==
[2023-05-04 12:36] VITALS: BP 104/72; PULSE 89; RESP 16; TEMP 36.9; O2SAT 94
[2023-05-04 12:53] LABS: Basophils # 0.1 10^3/uL (0.0-0.1); Basophils % 0.6 %; Eosinophils # 0.3 10^3/uL (0.0-0.8); Eosinophils % 3.7 %; Lymphocytes # 1.7 10^3/uL (0.8-4.8); Lymphocytes % 22.1 %; Mean Corpuscular Hemoglobin 26.2 pg (27-33); Mean Corpuscular Volume 81.8 fl (85-98); Mean Platelet Volume 8.8 fL (7.4-10.4); Monocytes # 0.4 10^3/uL (0.2-0.9); Monocytes % 5.6 %; Neutrophils # 5.29 10^3/uL (1.8-7.7); Neutrophils % 67.5 %; Nucleated Red Blood Cells % 0 %; Platelet Count 408 10^3/cmm (157-399); Red Blood Count 4.28 10^6/uL (3.85-5.65); Red Cell Distribution Width 17.7 % (12.1-15.1); White Blood Count 7.84 10^3/uL (3.29-11.43)
[2023-05-04 13:12] LABS: Alanine Aminotransferase < 5 U/L (0-33); Albumin Level 3.7 g/dL (3.5-5.2); Alkaline Phosphatase 160 U/L (35-105); Anion Gap 16.2 (5-19); Aspartate Amino Transferase 14 U/L (0-32); Blood Urea Nitrogen 14 mg/dL (6-20); Calcium 8.7 mg/dL (8.5-10.5); Carbon Dioxide 24 mmol/L (22-29); Chloride 104 mmol/L (98-107); Ferritin 491 ng/mL (15-150); Globulin 4.1 g/dL (1.3-4.6); Glucose 102 mg/dL (65-115); Iron 28 ug/dL (37-145); Osmolality Calculated 291 mOsm/kg (285-295); Percent Saturation 15.2 % (20-50); Potassium 4.2 mmol/L (3.5-5.1); Sodium 140 mmol/L (136-145); Total Bilirubin 0.2 mg/dL (0.15-1.2); Total Iron Binding Capacity 184 mcg/dl; Total Protein 7.8 g/dL (6.6-8.7); Unsaturated Iron Binding 156 ug/dL (112-347)
== END 2023-05-28 23:59 | disposition home or self-care (01) ==
PROVIDERS: PCP Family Medicine; Visit Provider Internal Medicine Medical Oncology
DX: D50.9 Iron deficiency anemia, unspecified (principal); Z79.899 Other long term (current) drug therapy; D64.9 Anemia, unspecified
CPT/HCPCS: 36415; 80053; 82728; 83540; 83550; 85025; 99215

== ENCOUNTER 2023-05-11 11:39 | Outpatient (CLI) | payer MEDICAID, SELFPAY ==
--- NOTE | 2023-05-11 11:42 | CT_ITS ---
WS: [id number] LDCT LUNG CANCER SCREENING HISTORY: NICOTINE DEPENDENCE, CIGARETTES TECHNIQUE: Axial imaging performed from the apices to 1 cm below the costophrenic angles. Coronal and sagittal reformats are submitted with axial MIP series. All CT scans at [facility] use at least one of these dose optimization techniques: automated exposure control; mA and/or kV adjustment per patient size (includes targeted exams where dose is matched to clinical indication); or iterativ e reconstruction. DLP: 69.70 mGy.cm DIvol: Mean CTDIvol: 1.60 (mGy) COMPARISON: 05/08/2022 Diagnostic quality: Mild breathing motion artifact. Lungs: Mild hazy attenuation throughout both lungs is probably due to poor inspiration. There are a f ew subcentimeter noncalcified pulmonary nodules. No mass. No new or enlarging nodules. Heart: Normal size heart with no pericardial effusion.. Extensive calcification of the [place] coronary arteries. Mild atherosclerosis aorta. Other findings: None. IMPRESSION: CT/CT lung screening [id number] LUNG-RADS: 2-Benign Appearance or Behavior FOLLOW UP: 12 Month: Continue annual screening with LDCT OTHER FINDINGS (S MODIFIER): None.
== END 2023-05-11 11:40 | disposition home or self-care (01) ==
LOC: RAD 11:39
PROVIDERS: PCP Family Medicine; Visit Provider Family Medicine
DX: Z12.2 Encounter for screening for malignant neoplasm of respiratory organs (principal); F17.210 Nicotine dependence, cigarettes, uncomplicated
CPT/HCPCS: 71271

== ENCOUNTER 2023-05-20 13:02 | Outpatient (CLI) | payer MEDICAID, SELFPAY ==
--- NOTE | 2023-05-20 13:00 | MM_ITS ---
WS: [id number] BILATERAL 3D TOMOSYNTHESIS DIGITAL SCREENING MAMMOGRAPHY WITH CAD CLINICAL INFORMATION: SCREENING HISTORY: Screening mammogram. No current complaints. COMPARISON: 2021 TECHNIQUE: Bilateral CC and MLO views. FINDINGS: Scattered fibroglandular densities bilaterally. No suspicious focal mass, asymmetry, calcifications, or architectural distortion. No evidence of malignancy. IMPRESSION: MM/[place] [id number] BI-RADS: 1-Negative FOLLOW UP: 1 Year Follow-up Recommend return to annual screening mammography.
== END 2023-05-20 13:03 | disposition home or self-care (01) ==
LOC: MOBLMAM 13:04
PROVIDERS: PCP Family Medicine; Visit Provider Family Medicine
DX: Z12.31 Encounter for screening mammogram for malignant neoplasm of breast (principal)
CPT/HCPCS: 77063; 77067

== ENCOUNTER → 2023-06-08 10:32 | Outpatient (BNVA) | payer MEDICAID, SELFPAY | PROVIDERS: PCP Family Medicine; Visit Provider Anesthesiology Pain Medicine | DX: G89.29 Other chronic pain; M51.16 Intervertebral disc disorders with radiculopathy, lumbar region; M47.816 Spondylosis without myelopathy or radiculopathy, lumbar region; E11.40 Type 2 diabetes mellitus with diabetic neuropathy, unspecified | CPT/HCPCS: 99214 ==

== ENCOUNTER → 2023-06-16 13:55 | Outpatient (BNVA) | payer MEDICAID, SELFPAY | PROVIDERS: PCP Family Medicine; Visit Provider Internal Medicine | DX: I25.10 Atherosclerotic heart disease of native coronary artery without angina pectoris (principal); L40.50 Arthropathic psoriasis, unspecified; F17.210 Nicotine dependence, cigarettes, uncomplicated; I10 Essential (primary) hypertension | CPT/HCPCS: 99214 ==

== ENCOUNTER 2023-06-19 09:30 | Oncology outpatient (recurring) (ONCR) | payer MEDICAID, SELFPAY ==
[2023-06-01 13:46] VITALS: BP 107/71; PULSE 94; RESP 16; TEMP 36.8; O2SAT 94
[2023-06-01 14:44] LABS: Basophils % 0.5 %; Eosinophils # 0.2 10^3/uL (0.0-0.8); Eosinophils % 2.4 %; Hematocrit 36.5 % (36-47); Lymphocytes # 1.7 10^3/uL (0.8-4.8); Lymphocytes % 23.5 %; Mean Corpuscular HGB Conc 31.5 g/dL (30-55); Mean Corpuscular Hemoglobin 26.3 pg (27-33); Mean Corpuscular Volume 83.5 fl (85-98); Mean Platelet Volume 9.5 fL (7.4-10.4); Monocytes # 0.3 10^3/uL (0.2-0.9); Monocytes % 3.7 %; Neutrophils # 5.11 10^3/uL (1.8-7.7); Neutrophils % 69.6 %; Nucleated Red Blood Cells % 0 %; Platelet Count 400 10^3/cmm (157-399); Red Blood Count 4.37 10^6/uL (3.85-5.65); White Blood Count 7.35 10^3/uL (3.29-11.43)
[2023-06-01 15:11] LABS: Ferritin 446 ng/mL (15-150); Iron 25 ug/dL (37-145); Percent Saturation 13.5 % (20-50); Total Iron Binding Capacity 184 mcg/dl; Unsaturated Iron Binding 159 ug/dL (112-347)
[2023-06-11] MEDS: sodium chloride 0.9% 250 ML 50 ML IV (10:37)
[2023-06-11] MEDS: ferumoxytol (NON-ESRD) 510 MG in sodium chloride 0.9% (100 ml) 100 ML 351 MG IV (10:37)
[2023-06-11 11:14] VITALS: BP 136/89; PULSE 79; RESP 18; TEMP 36.6; O2SAT 98
[2023-06-19 10:02] VITALS: BP 112/78; PULSE 85; RESP 18; TEMP 36.6; O2SAT 95
[2023-06-19] MEDS: ferumoxytol (NON-ESRD) 510 MG in sodium chloride 0.9% (100 ml) 100 ML 351 MG IV (10:19)
== END 2023-06-28 23:59 | disposition home or self-care (01) ==
PROVIDERS: Internal Medicine Medical Oncology; PCP Family Medicine; Visit Provider Family Medicine
DX: D50.9 Iron deficiency anemia, unspecified (principal); Z53.9 Procedure and treatment not carried out, unspecified reason
CPT/HCPCS: 36415; 82728; 83540; 83550; 85025; 96365; 99214; J7050; Q0138

== ENCOUNTER → 2023-07-09 08:36 | Outpatient (BNVA) | payer OTHER, SELFPAY | PROVIDERS: PCP Family Medicine; Visit Provider Nurse Practitioner | DX: Z96.652 Presence of left artificial knee joint (principal); M17.12 Unilateral primary osteoarthritis, left knee | CPT/HCPCS: 73560; 73565 ==

== ENCOUNTER 2023-07-16 11:24 | Oncology outpatient (recurring) (ONCR) | payer OTHER, MEDICAID, SELFPAY ==
[2023-07-16 11:40] VITALS: BP 122/83; PULSE 99; RESP 16; TEMP 36.8; O2SAT 95
[2023-07-16 11:45] LABS: Basophils # 0.1 10^3/uL (0.0-0.1); Basophils % 0.7 %; Eosinophils # 0.2 10^3/uL (0.0-0.8); Eosinophils % 2.9 %; Hematocrit 38.8 % (36-47); Lymphocytes # 1.8 10^3/uL (0.8-4.8); Lymphocytes % 23.6 %; Mean Corpuscular HGB Conc 32.5 g/dL (30-55); Mean Corpuscular Hemoglobin 27.3 pg (27-33); Mean Platelet Volume 9.2 fL (7.4-10.4); Monocytes # 0.4 10^3/uL (0.2-0.9); Monocytes % 4.8 %; Neutrophils # 5.21 10^3/uL (1.8-7.7); Neutrophils % 67.9 %; Nucleated Red Blood Cells % 0 %; Platelet Count 337 10^3/cmm (157-399); Red Blood Count 4.62 10^6/uL (3.85-5.65); Red Cell Distribution Width 16.3 % (12.1-15.1); White Blood Count 7.67 10^3/uL (3.29-11.43)
[2023-07-16 12:09] LABS: Ferritin 709 ng/mL (15-150); Iron 35 ug/dL (37-145); Percent Saturation 20.2 % (20-50); Total Iron Binding Capacity 173 mcg/dl; Unsaturated Iron Binding 138 ug/dL (112-347)
== END 2023-07-29 23:59 | disposition home or self-care (01) ==
PROVIDERS: Nurse Practitioner Family; PCP Family Medicine; Visit Provider Family Medicine
DX: D50.9 Iron deficiency anemia, unspecified (principal); Z53.9 Procedure and treatment not carried out, unspecified reason; Z79.899 Other long term (current) drug therapy; D64.9 Anemia, unspecified
CPT/HCPCS: 36415; 82728; 83540; 83550; 85025

== ENCOUNTER 2023-08-18 12:49 | Outpatient (RCR) | payer OTHER, MEDICAID, SELFPAY | END 2023-08-27 23:59 | disposition home or self-care (01) | LOC: SPT 12:49 | PROVIDERS: PCP Family Medicine; Visit Provider Anesthesiology Pain Medicine | DX: M54.9 Dorsalgia, unspecified (principal); G89.29 Other chronic pain | CPT/HCPCS: 97110; 97161; 97530 ==

== ENCOUNTER 2023-08-19 13:46 | Oncology outpatient (recurring) (ONCR) | payer OTHER, MEDICAID, SELFPAY ==
[2023-08-19 13:57] LABS: Basophils % 0.4 %; Eosinophils # 0.2 10^3/uL (0.0-0.8); Eosinophils % 2.4 %; Lymphocytes # 1.9 10^3/uL (0.8-4.8); Mean Corpuscular Hemoglobin 27.6 pg (27-33); Mean Corpuscular Volume 83.5 fl (85-98); Mean Platelet Volume 8.7 fL (7.4-10.4); Monocytes # 0.5 10^3/uL (0.2-0.9); Monocytes % 6.8 %; Neutrophils # 4.77 10^3/uL (1.8-7.7); Neutrophils % 64.1 %; Nucleated Red Blood Cells % 0 %; Platelet Count 342 10^3/cmm (157-399); Red Blood Count 4.79 10^6/uL (3.85-5.65); Red Cell Distribution Width 16.4 % (12.1-15.1); White Blood Count 7.45 10^3/uL (3.29-11.43)
[2023-08-19 15:39] LABS: Alanine Aminotransferase 20 U/L (0-33); Albumin Level 4.2 g/dL (3.5-5.2); Alkaline Phosphatase 176 U/L (35-105); Anion Gap 16.5 (5-19); Aspartate Amino Transferase 15 U/L (0-32); Blood Urea Nitrogen 13 mg/dL (6-20); Calcium 9.2 mg/dL (8.5-10.5); Carbon Dioxide 21 mmol/L (22-29); Chloride 103 mmol/L (98-107); Creatinine Clr Calc Pharmacy 71.8993; Ferritin 857 ng/mL (15-150); Glomerular Filtration Rate 65.2 mL/min (90-130); Glucose 93 mg/dL (65-115); Iron 47 ug/dL (37-145); Osmolality Calculated 284 mOsm/kg (285-295); Percent Saturation 22.4 % (20-50); Potassium 3.5 mmol/L (3.5-5.1); Sodium 137 mmol/L (136-145); Total Bilirubin 0.3 mg/dL (0.15-1.2); Total Iron Binding Capacity 209 mcg/dl; Total Protein 8.2 g/dL (6.6-8.7); Unsaturated Iron Binding 162 ug/dL (112-347)
== END 2023-08-27 23:59 | disposition home or self-care (01) ==
PROVIDERS: Internal Medicine; PCP Family Medicine; Visit Provider Family Medicine
DX: D50.9 Iron deficiency anemia, unspecified (principal); Z53.9 Procedure and treatment not carried out, unspecified reason
CPT/HCPCS: 36415; 80053; 82728; 83540; 83550; 85025

== ENCOUNTER 2023-08-28 06:00 | Outpatient (RCR) | payer OTHER, MEDICAID, SELFPAY | END 2023-09-04 23:59 | disposition home or self-care (01) | LOC: SPT 06:00 | PROVIDERS: PCP Family Medicine; Visit Provider Anesthesiology Pain Medicine | DX: M54.9 Dorsalgia, unspecified (principal); G89.29 Other chronic pain | CPT/HCPCS: 97110 ==

== ENCOUNTER 2023-09-16 08:30 | Outpatient (CLI) | payer MEDICARE, MEDICAID, SELFPAY ==
--- NOTE | 2023-09-16 10:00 | NM_ITS ---
WS: [id number] NUCLEAR MEDICINE HIDA SCAN CLINICAL INFORMATION: abdominal pain TECHNIQUE: Following intravenous administration of 7.3 mCi of technetium 99m mebrofenin, images of th e abdomen were obtained over the course of 60 minutes. Next, gallbladder ejection fraction was determ ined by obtaining preprandial and one-hour postprandial images of the gallbladder following oral laquita stion of Ensure. COMPARISON: None. FINDINGS: Normal hepatic uptake at 5 minutes. Normal hepatic excretion. Normal common bile duct and small bowel activity. Gallbladder is visualized by 20 minutes. No evidence of acute cholecystitis. Gallbladder ejection fraction 85% within normal limits. No evidence of chronic cholecystitis. IMPRESSION: 1. No evidence of acute or chronic cholecystitis. 2. Gallbladder ejection fraction 85% within normal limits.
== END 2023-09-16 08:31 | disposition home or self-care (01) ==
LOC: RAD 08:31
PROVIDERS: PCP Family Medicine; Visit Provider Surgery
DX: R10.9 Unspecified abdominal pain (principal)
CPT/HCPCS: 78227; A9537

== ENCOUNTER → 2023-10-06 11:14 | Outpatient (BNVA) | payer MEDICARE, SELFPAY | PROVIDERS: PCP Family Medicine; Visit Provider Anesthesiology Pain Medicine | DX: G89.29 Other chronic pain; M51.16 Intervertebral disc disorders with radiculopathy, lumbar region; M47.816 Spondylosis without myelopathy or radiculopathy, lumbar region; E11.40 Type 2 diabetes mellitus with diabetic neuropathy, unspecified | CPT/HCPCS: 99214 ==

== ENCOUNTER → 2023-10-19 14:18 | Outpatient (BNVA) | payer MEDICARE, MEDICAID, SELFPAY | PROVIDERS: PCP Family Medicine; Visit Provider Anesthesiology Pain Medicine | DX: M79.18 Myalgia, other site (principal); G89.29 Other chronic pain; M51.16 Intervertebral disc disorders with radiculopathy, lumbar region; M47.816 Spondylosis without myelopathy or radiculopathy, lumbar region; E11.40 Type 2 diabetes mellitus with diabetic neuropathy, unspecified | CPT/HCPCS: 20553; 99214; J1010; J3490 ==

== ENCOUNTER 2023-10-21 07:40 | Day surgery (SDC) | payer MEDICARE, SELFPAY ==
[2023-10-21 07:53] VITALS: BMI 32.9
[2023-10-21 07:56] VITALS: BP 127/100; PULSE 100; RESP 18; TEMP 36.5; O2SAT 93
[2023-10-21] MEDS: sodium chloride 0.9% 1,000 ML 30 ML IV (08:04)
--- NOTE | 2023-10-21 08:18 | ANES.PREANE2 ---
Pre-Anesthetic Assessment Height/Weight: Height 1.57 m Weight 81.647 kg Temp Pulse Resp BP Pulse Ox O2 Del Method 97.7 F 100 18 127/100 93 Room Air 10/21/23 07:56 10/21/23 07:56 10/21/23 07:56 10/21/23 07:56 10/21/23 07:56 10/21/23 07:56 Operation Date: 10/21/23 08:45 Proposed Procedures p EGD(Not Applicable) - Srinivas Downs DO s Colonoscopy(Not Applicable) - Srinivas Downs DO Familial anesthetic complications: None Was Beta Belinda taken within 24 hours: N/A Was Clonidine taken within 24 hours: N/A Last intake: Intake Last Liquid Date 10/20/23 Last Liquid Time 23:55 Last Solid Date 10/20/23 Last Solid Time 18:00 Social Tobacco (Marijuana daily) and No alcohol .5 pack(s) per day Exam alert, oriented x 3, clear to auscultation bilaterally and regular rate & rhythm Airway Submandibular: within normal limits Cervical ROM: within normal limits Mallampati: Class III Dentition: chipped Comments: Comments: Several missing History/ROS No significant history except as noted and No significant complaints Pulmonary None reported CV/HEM Coronary Artery Disease, Myocardial Infarction (Stent x2, last stent 02/2021, last saw cardiology fall 2022) and Murmur CONCLUSIONS LV systolic function is normal with EF 55 to 60%. Mild mitral regurgitation Mild aortic regurgitation Mild tricuspid regurgitation Compared to prior echocardiogram from 2020, no significant changes are seen None reported Hepatic None reported GI Gastroesophageal Reflux Disease (Controlled with meds) Metabolic Hyperlipidemia Musc/skel Lower Back Pain and Osteoarthritis/DJD Neuropsych Anxiety and Depression Anesthetic Plan ASA status: 3 Anesthesia: Anesthesia Evaluation, General and MAC Risk of > 500 ml blood loss (7ml/kg in children): No Medications/Allergies Home Medications Medication Instructions Recorded Confirmed Last Taken Type cholecalciferol (vitamin D3) 50 50 mcg PO DAILY 05/29/21 10/21/23 10/20/23 History mcg (2,000 unit) capsule folic acid 400 mcg tablet 0.4 mg PO DAILY 10/22/21 10/21/23 10/20/23 History nitroglycerin 0.4 mg sublingual 0.4 mg sublingual Q5M PRN chest 10/22/21 10/19/23 1 Day Ago Rx tablet pain #25 tabs ~11/03/22 vitamin B complex (B 1 tab PO DAILY 10/29/21 10/21/23 10/20/23 History Complex-Vitamin B12 tablet) aspirin 81 mg tablet,delayed 81 mg PO DAILY 08/04/22 10/19/23 10/18/23 History release triamcinolone acetonide 0.5 % 1 applic topical TID PRN Rash #30 09/24/22 10/19/23 03/25/23 Rx topical cream grams atorvastatin 80 mg tablet 80 mg PO DAILY 11/05/22 10/21/23 10/20/23 History buspirone 10 mg tablet 10 mg PO BID 01/05/23 10/21/23 10/20/23 History trazodone 50 mg tablet 100 mg (2 x 50 mg) PO .HS PRN 01/06/23 10/19/23 03/25/23 Rx insomnia #60 tabs diclofenac sodium 1 % topical gel 4 g topical QID PRN Pain 01/28/23 10/19/23 03/26/23 History (Voltaren Arthritis Pain) estradiol 0.01% (0.1 mg/gram) 1 appful vaginal .COMPLEX 01/28/23 10/19/23 10/14/23 History vaginal cream tizanidine 4 mg tablet 4 mg PO BID PRN muscle spasticity 10/06/23 10/21/23 10/20/23 Rx #60 tabs colestipol 1 gram tablet 1 g PO BID 10/19/23 10/21/23 10/20/23 History famotidine 40 mg tablet 40 mg PO BID 10/19/23 10/21/23 10/20/23 History Allergies Allergy/AdvReac Type Severity Reaction Status Date / Time No Known Allergies Allergy Verified 10/19/23 10:33 Current Medications Generic Name Dose Route Start Last Admin Trade Name Freq PRN Reason Stop Dose Admin Sodium Chloride 1,000 mls @ 30 mls/hr 10/21/23 08:00 10/21/23 08:04 Sodium Chloride 0.9% IV 10/22/23 07:59 30 mls/hr .Q24H JUDI Administration PFSH Anesthesia Medical History Diabetes Cervical pain Abdominal pain Psychiatric care Mitral regurgitation Hyperlipidemia Essential hypertension Microcytic hypochromic anemia Coronary artery disease Atherosclerosis of coronary artery ST elevation [place] (STEMI) Microcytic anemia Generalized osteoarthritis Immunosuppression Psoriasis Psoriatic arthritis Surgical History Hx of colonoscopy 2020 History of esophagogastroduodenoscopy (EGD) 2020 Social History Smoking and tobacco/nicotine status: light tobacco/nicotine user cigarettes Packs smoked per day: 0.5 Years cigarettes smoked: 35 Quit status (tobacco/nicotine): has quit using Year quit tobacco: Feb 2021 Smoked for 40 y Second hand smoke exposure: No Alcohol intake: current Alcohol intake frequency: few times a month Alcohol type: beer Substance/Drug Use: never Marital status: Number of children: 2 Current occupational status: employed 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
--- NOTE | 2023-10-21 08:58 | P.HP_ITS ---
Providers/Chief Complaint Primary Care Provider: Colt Adams MD Chief Complaint: K52.9, K21.9, K92.2 History of Present Illness Jayla Alvarez is a 53 year old female Review of Systems General: Reports: 10 or more systems reviewed and unremarkable except in HPI and below Medications/Allergies Home Medications Medication Instructions Recorded Confirmed Last Taken Type cholecalciferol (vitamin D3) 50 50 mcg PO DAILY 05/29/21 10/21/23 10/20/23 History mcg (2,000 unit) capsule folic acid 400 mcg tablet 0.4 mg PO DAILY 10/22/21 10/21/23 10/20/23 History nitroglycerin 0.4 mg sublingual 0.4 mg sublingual Q5M PRN chest 10/22/21 10/19/23 1 Day Ago Rx tablet pain #25 tabs ~11/03/22 vitamin B complex (B 1 tab PO DAILY 10/29/21 10/21/23 10/20/23 History Complex-Vitamin B12 tablet) aspirin 81 mg tablet,delayed 81 mg PO DAILY 08/04/22 10/19/23 10/18/23 History release triamcinolone acetonide 0.5 % 1 applic topical TID PRN Rash #30 09/24/22 10/19/23 03/25/23 Rx topical cream grams atorvastatin 80 mg tablet 80 mg PO DAILY 11/05/22 10/21/23 10/20/23 History buspirone 10 mg tablet 10 mg PO BID 01/05/23 10/21/23 10/20/23 History trazodone 50 mg tablet 100 mg (2 x 50 mg) PO .HS PRN 01/06/23 10/19/23 03/25/23 Rx insomnia #60 tabs diclofenac sodium 1 % topical gel 4 g topical QID PRN Pain 01/28/23 10/19/23 03/26/23 History (Voltaren Arthritis Pain) estradiol 0.01% (0.1 mg/gram) 1 appful vaginal .COMPLEX 01/28/23 10/19/23 10/14/23 History vaginal cream tizanidine 4 mg tablet 4 mg PO BID PRN muscle spasticity 10/06/23 10/21/23 10/20/23 Rx #60 tabs colestipol 1 gram tablet 1 g PO BID 10/19/23 10/21/2310/19/24 History famotidine 40 mg tablet 40 mg PO BID 10/19/23 10/21/23 10/20/23 History Allergies Allergy/AdvReac Type Severity Reaction Status Date / Time No Known Allergies Allergy Verified 10/19/23 10:33 PFSH Acute PFSH: Medical History Diabetes Cervical pain Abdominal pain Psychiatric care Mitral regurgitation Hyperlipidemia Essential hypertension Microcytic hypochromic anemia Coronary artery disease Atherosclerosis of coronary artery ST elevation [place] (STEMI) Microcytic anemia Generalized osteoarthritis Immunosuppression Psoriasis Psoriatic arthritis Surgical History Hx of colonoscopy 2020 History of esophagogastroduodenoscopy (EGD) 2020 Social History Smoking and tobacco/nicotine status: light tobacco/nicotine user cigarettes Packs smoked per day: 0.5 Years cigarettes smoked: 35 Quit status (tobacco/nicotine): has quit using Year quit tobacco: Feb 2021 Smoked for 40 y Second hand smoke exposure: No Alcohol intake: current Alcohol intake frequency: few times a month Alcohol type: beer Substance/Drug Use: never Marital status: Number of children: 2 Current occupational status: employed 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 Vitals/I&O/Wt Last Vital Signs Temp 97.7 F 10/21/23 07:56 Pulse 100 10/21/23 07:56 Resp 18 10/21/23 07:56 BP 127/100 10/21/23 07:56 Pulse Ox 93 10/21/23 07:56 O2 Del Method Room Air 10/21/23 07:56 Weight last 48 hrs Weight 180 lb A&P Assessment and plan (1) Diarrhea: (2) Colitis: (3) Postprandial abdominal pain in right upper quadrant: (4) Abdominal pain: (5) GERD (gastroesophageal reflux disease): Plan EGD and colonoscopy Attestations Medical Necessity Statement*: Home Coding Level of Care Code Acute Code for [facility] Fwd Diagnoses Diarrhea R19.7 Colitis K52.9 Postprandial abdominal pain in right upper quadrant R10.11 Abdominal pain R10.9 GERD (gastroesophageal reflux disease) K21.9
[2023-10-21 09:20] VITALS: BP 99/69; PULSE 88; RESP 16; TEMP 36.2; O2SAT 94
[2023-10-21 09:30] VITALS: BP 114/83; PULSE 79; RESP 16; O2SAT 94
[2023-10-21 09:47] VITALS: BP 111/92; PULSE 82; RESP 18; O2SAT 96
--- NOTE | 2023-10-21 10:20 | ANE.PACU2 ---
Inpatient post-anesthesia follow up: Airway intact: Yes Vital signs: Temperature 97.1 F Pulse Rate 82 Respiratory Rate 18 Blood Pressure 111/92 Pulse Oximetry 96 Oxygen Delivery Me thod Room Air Oxygen Flow Rate Fraction of Inspir ed Oxygen Hydration adequate: Yes Nausea and vomiting: No Pain level: 1 Mental status: Baseline
[2023-10-21 10:42] LABS: C.Diff PCR (Lab) NEGATIVE (Negative)
== END 2023-10-21 10:20 | disposition home or self-care (01) ==
PROVIDERS: PCP Family Medicine; Visit Provider Surgery
PROC: 0DJ08ZZ Inspection of Upper Intestinal Tract, Via Natural or Artificial Opening Endoscopic (ICD-10-PCS; principal; 2023-10-21 08:45)
PROC: 0DJD8ZZ Inspection of Lower Intestinal Tract, Via Natural or Artificial Opening Endoscopic (ICD-10-PCS; CPT 45378; 2023-10-21 08:45)
DX: K52.9 Noninfective gastroenteritis and colitis, unspecified (principal); K21.9 Gastro-esophageal reflux disease without esophagitis; K29.50 Unspecified chronic gastritis without bleeding; K64.8 Other hemorrhoids; K22.2 Esophageal obstruction; K44.9 Diaphragmatic hernia without obstruction or gangrene; I25.10 Atherosclerotic heart disease of native coronary artery without angina pectoris; I25.2 Old myocardial infarction; Z95.5 Presence of coronary angioplasty implant and graft; E78.5 Hyperlipidemia, unspecified; Z79.82 Long term (current) use of aspirin; E11.9 Type 2 diabetes mellitus without complications; I10 Essential (primary) hypertension; F17.210 Nicotine dependence, cigarettes, uncomplicated
CPT/HCPCS: 43239; 45380; 82274; 83630; 87045; 87177; 87209; 87427; 87449; 87493; 88305; 88342; J2704; J7030; J9999

== ENCOUNTER → 2023-11-02 09:27 | Outpatient (BNVA) | payer MEDICARE, MEDICAID, SELFPAY | PROVIDERS: PCP Family Medicine; Visit Provider Internal Medicine Rheumatology | DX: L40.50 Arthropathic psoriasis, unspecified (principal); Z79.899 Other long term (current) drug therapy; Z11.59 Encounter for screening for other viral diseases; Z11.1 Encounter for screening for respiratory tuberculosis; Z71.85 Encounter for immunization safety counseling | CPT/HCPCS: 36415; 80076; 82565; 85025; 86140; 86480; 86704; 86803; 87340; 99214 ==

== ENCOUNTER → 2023-11-05 08:07 | Outpatient (BNVA) | payer MEDICARE, MEDICAID, SELFPAY | PROVIDERS: Visit Provider Surgery | DX: K51.90 Ulcerative colitis, unspecified, without complications (principal); L40.50 Arthropathic psoriasis, unspecified; K82.8 Other specified diseases of gallbladder; K21.9 Gastro-esophageal reflux disease without esophagitis | CPT/HCPCS: 99214 ==

== ENCOUNTER → 2023-11-18 09:48 | Outpatient (BNVA) | payer MEDICARE, MEDICAID, SELFPAY | PROVIDERS: PCP Family Medicine; Visit Provider Anesthesiology Pain Medicine | DX: G89.29 Other chronic pain; M51.16 Intervertebral disc disorders with radiculopathy, lumbar region; M47.816 Spondylosis without myelopathy or radiculopathy, lumbar region; E11.40 Type 2 diabetes mellitus with diabetic neuropathy, unspecified | CPT/HCPCS: 99214 ==

== ENCOUNTER 2023-12-07 12:10 | Oncology outpatient (recurring) (ONCR) | payer MEDICARE, MEDICAID, SELFPAY ==
[2023-12-07 12:43] LABS: Basophils # 0.1 10^3/uL (0.0-0.1); Basophils % 0.9 %; Eosinophils # 0.1 10^3/uL (0.0-0.8); Eosinophils % 2.1 %; Hematocrit 41.2 % (36-47); Lymphocytes # 1.5 10^3/uL (0.8-4.8); Lymphocytes % 26.8 %; Mean Corpuscular HGB Conc 33.5 g/dL (30-55); Mean Corpuscular Hemoglobin 29.2 pg (27-33); Mean Corpuscular Volume 87.3 fl (85-98); Mean Platelet Volume 9.1 fL (7.4-10.4); Monocytes # 0.3 10^3/uL (0.2-0.9); Monocytes % 4.6 %; Neutrophils # 3.72 10^3/uL (1.8-7.7); Neutrophils % 65.4 %; Nucleated Red Blood Cells % 0 %; Platelet Count 292 10^3/cmm (157-399); Red Blood Count 4.72 10^6/uL (3.85-5.65); Red Cell Distribution Width 14.4 % (12.1-15.1); White Blood Count 5.68 10^3/uL (3.29-11.43)
[2023-12-07 12:53] LABS: Alanine Aminotransferase 14 U/L (0-33); Albumin Level 4.2 g/dL (3.5-5.2); Alkaline Phosphatase 165 U/L (35-105); Aspartate Amino Transferase 10 U/L (0-32); Blood Urea Nitrogen 8 mg/dL (6-20); Calcium 9.2 mg/dL (8.5-10.5); Carbon Dioxide 20 mmol/L (22-29); Chloride 105 mmol/L (98-107); Ferritin 535 ng/mL (15-150); Globulin 3.7 g/dL (1.3-4.6); Glomerular Filtration Rate 65.2 mL/min (90-130); Glucose 137 mg/dL (65-115); Iron 47 ug/dL (37-145); Osmolality Calculated 286 mOsm/kg (285-295); Sodium 138 mmol/L (136-145); Total Bilirubin 0.3 mg/dL (0.15-1.2); Total Iron Binding Capacity 188 mcg/dl; Total Protein 7.9 g/dL (6.6-8.7); Unsaturated Iron Binding 141 ug/dL (112-347)
== END 2023-12-27 23:59 | disposition home or self-care (01) ==
PROVIDERS: Nurse Practitioner Family; PCP Family Medicine; Visit Provider Family Medicine
DX: D50.9 Iron deficiency anemia, unspecified (principal)
CPT/HCPCS: 36415; 80053; 82728; 83540; 83550; 85025; 99213

== ENCOUNTER → 2023-12-14 08:13 | Outpatient (BNVA) | payer MEDICARE, MEDICAID, SELFPAY | PROVIDERS: PCP Family Medicine; Visit Provider Surgery | DX: K82.8 Other specified diseases of gallbladder (principal); K21.9 Gastro-esophageal reflux disease without esophagitis; K51.90 Ulcerative colitis, unspecified, without complications | CPT/HCPCS: 99214 ==

== ENCOUNTER → 2024-02-08 10:24 | Outpatient (BNVA) | payer MEDICARE, SELFPAY | PROVIDERS: PCP Family Medicine; Visit Provider Nurse Practitioner Family | DX: I25.10 Atherosclerotic heart disease of native coronary artery without angina pectoris (principal); I10 Essential (primary) hypertension; F17.210 Nicotine dependence, cigarettes, uncomplicated | CPT/HCPCS: 99214 ==

== ENCOUNTER 2024-02-11 06:50 | Day surgery (SDC) | payer MEDICARE, SELFPAY ==
[2024-02-11] VITALS (9 sets, daily range): BP systolic 109–141; BP diastolic 77–91; PULSE 78–93; RESP 18; TEMP 36.1–36.5; O2SAT 95–100; BMI 32.9
--- NOTE | 2024-02-11 07:05 | P.HP_ITS ---
Providers/Chief Complaint Primary Care Provider: Colt Adams MD Chief Complaint: K82.8 History of Present Illness Jayla Alvarez is a 53 year old female Review of Systems General: Reports: 10 or more systems reviewed and unremarkable except in HPI and below Medications/Allergies Home Medications Medication Instructions Recorded Confirmed Last Taken Type cholecalciferol (vitamin D3) 50 50 mcg PO DAILY 05/29/21 02/10/24 02/10/24 History mcg (2,000 unit) capsule folic acid 400 mcg tablet 0.4 mg PO DAILY 10/22/21 02/10/24 02/10/24 History vitamin B complex (B 1 tab PO DAILY 10/29/21 02/10/24 02/10/24 History Complex-Vitamin B12 tablet) aspirin 81 mg tablet,delayed 81 mg PO DAILY 08/04/22 02/10/24 02/09/24 History release triamcinolone acetonide 0.5 % 1 applic topical TID PRN Rash #30 09/24/22 02/10/24 03/25/23 Rx topical cream grams atorvastatin 80 mg tablet 80 mg PO DAILY 11/05/22 02/10/24 02/09/24 History diclofenac sodium 1 % topical gel 4 g topical QID PRN Pain 01/28/23 02/10/24 03/26/23 History (Voltaren Arthritis Pain) estradiol 0.01% (0.1 mg/gram) 1 appful vaginal .COMPLEX 01/28/23 02/10/24 10/14/23 History vaginal cream etanercept 50 mg/mL (1 mL) 50 mg SUBCUT .Q7days #4 mL 11/02/23 02/10/24 02/07/24 Rx subcutaneous pen injector (Enbrel SureClick) omeprazole 40 mg capsule,delayed 40 mg PO DAILY 11/02/23 02/10/24 02/11/24 History release prednisone 20 mg tablet See Rx Instructions PO .COMPLEX 11/02/23 02/10/24 Unknown Rx PRN joint pain flare #30 tabs buspirone 15 mg tablet 15 mg PO BID 12/14/23 02/10/24 02/10/24 History nitroglycerin 0.4 mg sublingual 0.4 mg sublingual Q5M PRN chest 02/08/24 02/10/24 Unknown Rx tablet pain #25 tabs Allergies Allergy/AdvReac Type Severity Reaction Status Date / Time No Known Allergies Allergy Verified 02/08/24 10:29 PFSH Acute PFSH: Medical History Ulcerative colitis Immunization counseling High risk medication use Diabetes Cervical pain Abdominal pain Mitral regurgitation Hyperlipidemia Essential hypertension Microcytic hypochromic anemia Coronary artery disease Atherosclerosis of coronary artery ST elevation [place] (STEMI) Microcytic anemia Generalized osteoarthritis Immunosuppression Psoriasis Psoriatic arthritis Surgical History Hx of colonoscopy 2020 History of esophagogastroduodenoscopy (EGD) 2020 Social History Smoking and tobacco/nicotine status: current every day tobacco/nicotine user cigarettes Packs smoked per day: 0.5 Years cigarettes smoked: 35 Quit status (tobacco/nicotine): has quit using Year quit tobacco: Feb 2021 Smoked for 40 y Second hand smoke exposure: No Alcohol intake: current Alcohol intake frequency: few times a month Alcohol type: beer Substance/Drug Use: never Marital status: Number of children: 2 Current occupational status: employed 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
--- NOTE | 2024-02-11 07:13 | ANES.PREANE2 ---
Pre-Anesthetic Assessment Height/Weight: Height 1.6 m Operation Date: 02/11/24 08:20 Proposed Procedures p Laparoscopic Cholecystectomy 80172, K82.8(Not Applicable) - Srinivas Downs DO Familial anesthetic complications: None Was Beta Belinda taken within 24 hours: N/A Was Clonidine taken within 24 hours: N/A Last intake: > 8hrs Social Tobacco and No alcohol marijuna Exam alert, oriented x 3, clear to auscultation bilaterally and regular rate & rhythm Airway Dentition: chipped CV/HEM Coronary Artery Disease (stents) and Myocardial Infarction mitral valve regurge (mild) GI Gastroesophageal Reflux Disease Metabolic Hyperlipidemia Anesthetic Plan ASA status: 3 Anesthesia: General Risk of > 500 ml blood loss (7ml/kg in children): No Medications/Allergies Home Medications Medication Instructions Recorded Confirmed Last Taken Type cholecalciferol (vitamin D3) 50 50 mcg PO DAILY 05/29/21 02/10/24 02/10/24 History mcg (2,000 unit) capsule folic acid 400 mcg tablet 0.4 mg PO DAILY 10/22/21 02/10/24 02/10/24 History vitamin B complex (B 1 tab PO DAILY 10/29/21 02/10/24 02/10/24 History Complex-Vitamin B12 tablet) aspirin 81 mg tablet,delayed 81 mg PO DAILY 08/04/22 02/10/24 02/09/24 History release triamcinolone acetonide 0.5 % 1 applic topical TID PRN Rash #30 09/24/22 02/10/24 03/25/23 Rx topical cream grams atorvastatin 80 mg tablet 80 mg PO DAILY 11/05/22 02/10/24 02/09/24 History diclofenac sodium 1 % topical gel 4 g topical QID PRN Pain 01/28/23 02/10/24 03/26/23 History (Voltaren Arthritis Pain) estradiol 0.01% (0.1 mg/gram) 1 appful vaginal .COMPLEX 01/28/23 02/10/24 10/14/23 History vaginal cream etanercept 50 mg/mL (1 mL) 50 mg SUBCUT .Q7days #4 mL 11/02/23 02/10/24 02/07/24 Rx subcutaneous pen injector (Enbrel SureClick) omeprazole 40 mg capsule,delayed 40 mg PO DAILY 11/02/23 02/10/24 02/11/24 History release prednisone 20 mg tablet See Rx Instructions PO .COMPLEX 11/02/23 02/10/24 Unknown Rx PRN joint pain flare #30 tabs buspirone 15 mg tablet 15 mg PO BID 12/14/23 02/10/24 02/10/24 History nitroglycerin 0.4 mg sublingual 0.4 mg sublingual Q5M PRN chest 02/08/24 02/10/24 Unknown Rx tablet pain #25 tabs Allergies Allergy/AdvReac Type Severity Reaction Status Date / Time No Known Allergies Allergy Verified 02/08/24 10:29 [facility] Anesthesia Medical History Ulcerative colitis Immunization counseling High risk medication use Diabetes Cervical pain Abdominal pain Mitral regurgitation Hyperlipidemia Essential hypertension Microcytic hypochromic anemia Coronary artery disease Atherosclerosis of coronary artery ST elevation [place] (STEMI) Microcytic anemia Generalized osteoarthritis Immunosuppression Psoriasis Psoriatic arthritis Surgical History Hx of colonoscopy 2020 History of esophagogastroduodenoscopy (EGD) 2020 Social History Smoking and tobacco/nicotine status: current every day tobacco/nicotine user cigarettes Packs smoked per day: 0.5 Years cigarettes smoked: 35 Quit status (tobacco/nicotine): has quit using Year quit tobacco: Feb 2021 Smoked for 40 y Second hand smoke exposure: No Alcohol intake: current Alcohol intake frequency: few times a month Alcohol type: beer Substance/Drug Use: never Marital status: Number of children: 2 Current occupational status: employed 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
[2024-02-11] MEDS: scopolamine 1.5 Patch 1 PATCH TRANSDERMA (07:22)
[2024-02-11] MEDS: sodium chloride 0.9% 1,000 ML 30 ML IV (07:24)
[2024-02-11] MEDS: midazolam 1 mg/mL INJ 2 mL 2 MG IVP (07:58)
[2024-02-11] MEDS: ceFAZolin 2,000 mg SDV 2000 MG IVP (08:08)
[2024-02-11] MEDS: lidocaine-epi 2% PF 1:200,000 20 mL SDV INJECTION (08:37)
--- NOTE | 2024-02-11 08:48 | P.OP_ITS ---
Operative Report Date of procedure: February 11, 2024 Surgeon: Srinivas Downs DO Brief History: This is a very pleasant 53-year-old female who presented my office with abdominal pain. She is diagnosed with biliary dyskinesia. Laparoscopic cholecystectomy was indicated. The risk and benefits were explained and documented. Procedure: Preoperative diagnosis: Biliary dyskinesia Postoperative diagnosis: Same Procedure performed: Laparoscopic cholecystectomy Surgeon: Dr. Srinivas Downs DO Estimated blood loss: 5 mL Specimens: Gallbladder to pathology Complications: None apparent Description of procedure: Patient was wheeled into the operative room and placed on the OR table in a supine position. Abdomen was inspected prepped and draped in usual sterile fashion. Time-out was performed and all present were in agreement. A 15 blade scalp was used to make a stab incision in the left upper quadrant and intra- abdominal insufflation was achieved using a Veress needle. After localizing the tissue incisions were made and a 5 millimeter trocar was placed into the umbilicus as well as 2 in the right upper quadrant. A 12 millimeter trocar was placed in the epigastrium. Gallbladder was grasped and elevated. The triangle of Calot was carefully dissected using blunt dissection and electrocautery until the triangle of Calot clearly identified. The cystic duct was clipped proximally and double clipped distally. The duct was then ligated proximally. The cystic artery was doubly clipped and ligated. The gallbladder was then removed from the liver bed using electrocautery. The gallbladder was removed from the abdomen using an Endo-Catch bag through the epigastric incision. The liver bed was inspected and no bleeding was seen. The abdomen was irrigated and suctioned. All ports removed. Skin was washed and dried. Incisions were closed with 4-0 Monocryl in a subcuticular interrupted fashion. Skin glue was applied. Patient tolerated the procedure well.
[2024-02-11] MEDS: HYDROcodone-acetaminophen 7.5-325 mg Tablet 1 TAB PO (10:02)
--- NOTE | 2024-02-11 10:20 | ANE.PACU2 ---
Inpatient post-anesthesia follow up: Airway intact: Yes Vital signs: Temperature 97.0 F Pulse Rate 78 Respiratory Rate 18 Blood Pressure 127/85 Pulse Oximetry 100 Oxygen Delivery Me thod Room Air Oxygen Flow Rate 8 Fraction of Inspir ed Oxygen Hydration adequate: Yes Nausea and vomiting: No Pain level: 1 Mental status: Baseline
== END 2024-02-11 10:22 | disposition home or self-care (01) ==
PROVIDERS: PCP Family Medicine; Visit Provider Surgery
PROC: 0FT44ZZ Resection of Gallbladder, Percutaneous Endoscopic Approach (ICD-10-PCS; CPT 47562; principal; 2024-02-11 08:10)
DX: K81.1 Chronic cholecystitis (principal); I25.10 Atherosclerotic heart disease of native coronary artery without angina pectoris; Z95.5 Presence of coronary angioplasty implant and graft; I25.2 Old myocardial infarction; K21.9 Gastro-esophageal reflux disease without esophagitis; E78.5 Hyperlipidemia, unspecified; Z79.82 Long term (current) use of aspirin; E11.9 Type 2 diabetes mellitus without complications; Z87.891 Personal history of nicotine dependence
CPT/HCPCS: 47562; 88304; J0690; J1100; J1885; J2250; J2405; J2704; J3010; J3490; J7030

== ENCOUNTER → 2024-02-22 13:29 | Outpatient (BNVA) | payer MEDICARE, SELFPAY | PROVIDERS: PCP Family Medicine; Visit Provider Surgery | DX: K58.9 Irritable bowel syndrome, unspecified (principal); Z90.49 Acquired absence of other specified parts of digestive tract | CPT/HCPCS: 99214 ==

== ENCOUNTER 2024-03-03 13:22 | Oncology outpatient (recurring) (ONCR) | payer MEDICARE, SELFPAY ==
[2024-03-03 14:33] LABS: Basophils # 0.1 10^3/uL (0.0-0.1); Basophils % 0.6 %; Eosinophils # 0.3 10^3/uL (0.0-0.8); Eosinophils % 3.4 %; Hematocrit 38.9 % (36-47); Lymphocytes # 1.8 10^3/uL (0.8-4.8); Lymphocytes % 22.3 %; Mean Corpuscular HGB Conc 32.9 g/dL (30-55); Mean Corpuscular Hemoglobin 29.1 pg (27-33); Mean Corpuscular Volume 88.4 fl (85-98); Monocytes # 0.5 10^3/uL (0.2-0.9); Monocytes % 6.1 %; Neutrophils # 5.57 10^3/uL (1.8-7.7); Neutrophils % 67.4 %; Nucleated Red Blood Cells % 0 %; Platelet Count 335 10^3/cmm (157-399); Red Cell Distribution Width 13.8 % (12.1-15.1); White Blood Count 8.26 10^3/uL (3.29-11.43)
[2024-03-03 14:47] LABS: Chloride 107 mmol/L (98-107); Potassium 4.7 mmol/L (3.5-5.1); Sodium 144 mmol/L (136-145)
[2024-03-03 15:07] LABS: Alanine Aminotransferase 17 U/L (0-33); Albumin Level 4.1 g/dL (3.5-5.2); Alkaline Phosphatase 154 U/L (35-105); Anion Gap 17.7 (5-19); Aspartate Amino Transferase 11 U/L (0-32); Blood Urea Nitrogen 16 mg/dL (6-20); Carbon Dioxide 24 mmol/L (22-29); Creatinine Clr Calc Pharmacy 69.7288; Ferritin 492 ng/mL (15-150); Globulin 3.2 g/dL (1.3-4.6); Glomerular Filtration Rate 65.2 mL/min (90-130); Glucose 117 mg/dL (65-115); Iron 36 ug/dL (37-145); Osmolality Calculated 300 mOsm/kg (285-295); Percent Saturation 17.6 % (20-50); Total Bilirubin 0.2 mg/dL (0.15-1.2); Total Iron Binding Capacity 204 mcg/dl; Total Protein 7.3 g/dL (6.6-8.7); Unsaturated Iron Binding 168 ug/dL (112-347)
== END 2024-03-28 23:59 | disposition home or self-care (01) ==
LOC: ONCMED 13:24
PROVIDERS: Nurse Practitioner Family; PCP Family Medicine; Visit Provider Family Medicine
DX: D50.9 Iron deficiency anemia, unspecified (principal); K90.9 Intestinal malabsorption, unspecified
CPT/HCPCS: 36415; 80053; 82728; 83540; 83550; 85025; 99214

== ENCOUNTER → 2024-03-10 13:15 | Outpatient (BNVA) | payer MEDICARE, SELFPAY | PROVIDERS: PCP Family Medicine; Visit Provider Surgery | DX: K58.9 Irritable bowel syndrome, unspecified (principal) | CPT/HCPCS: 99214 ==

== ENCOUNTER 2024-04-18 09:00 | Oncology outpatient (recurring) (ONCR) | payer MEDICARE, SELFPAY ==
[2024-04-07 11:25] VITALS: BP 116/80; PULSE 78; RESP 16; TEMP 36.4; O2SAT 98
[2024-04-07] MEDS: iron sucrose 200 MG in sodium chloride 0.9% (100 ml) 100 ML 220 MG IV (11:32)
[2024-04-07] MEDS: sodium chloride 0.9% 250 ML 220 ML IV (11:32)
[2024-04-07 12:17] VITALS: BP 115/75; PULSE 90; RESP 16; TEMP 36.5; O2SAT 97
[2024-04-11] MEDS: iron sucrose 200 MG in sodium chloride 0.9% (100 ml) 100 ML 220 MG IV (09:26)
[2024-04-11 10:05] VITALS: BP 129/85; PULSE 76; RESP 16; TEMP 36.6; O2SAT 97
[2024-04-13 09:15] VITALS: BP 137/88; PULSE 86; RESP 16; TEMP 37.1; O2SAT 96
[2024-04-13] MEDS: iron sucrose 200 MG in sodium chloride 0.9% (100 ml) 100 ML 220 MG IV (09:32)
[2024-04-13 10:05] VITALS: BP 131/84; PULSE 79; RESP 16; TEMP 36.7; O2SAT 92
[2024-04-15 09:04] VITALS: BP 126/86; PULSE 82; RESP 16; TEMP 36.9; O2SAT 95
[2024-04-15] MEDS: iron sucrose 200 MG in sodium chloride 0.9% (100 ml) 100 ML 220 MG IV (09:06)
[2024-04-18 09:12] VITALS: BP 136/80; PULSE 89; RESP 17; TEMP 37.1; O2SAT 95
[2024-04-18] MEDS: iron sucrose 200 MG in sodium chloride 0.9% (100 ml) 100 ML 220 MG IV (09:18)
[2024-04-18 09:45] VITALS: BP 120/77; PULSE 79; RESP 16; TEMP 37.1; O2SAT 94
== END 2024-04-28 23:59 | disposition home or self-care (01) ==
PROVIDERS: PCP Family Medicine; Visit Provider Family Medicine
DX: Z53.9 Procedure and treatment not carried out, unspecified reason; Z79.899 Other long term (current) drug therapy; D50.8 Other iron deficiency anemias
CPT/HCPCS: 96365; J1756; J7050

== ENCOUNTER → 2024-05-02 09:18 | Outpatient (BNVA) | payer MEDICARE, SELFPAY | PROVIDERS: PCP Family Medicine; Visit Provider Internal Medicine Rheumatology | DX: M47.812 Spondylosis without myelopathy or radiculopathy, cervical region (principal); M47.816 Spondylosis without myelopathy or radiculopathy, lumbar region; L40.50 Arthropathic psoriasis, unspecified; Z79.899 Other long term (current) drug therapy; Z71.85 Encounter for immunization safety counseling | CPT/HCPCS: 99214 ==

== ENCOUNTER → 2024-05-10 14:42 | Outpatient (BNVA) | payer MEDICARE, SELFPAY | PROVIDERS: PCP Family Medicine; Visit Provider Orthopaedic Surgery | DX: M54.2 Cervicalgia (principal); M51.16 Intervertebral disc disorders with radiculopathy, lumbar region; M54.9 Dorsalgia, unspecified; G89.29 Other chronic pain; M54.50 Low back pain, unspecified | CPT/HCPCS: 72050; 72110; 99204 ==

== ENCOUNTER 2024-05-30 11:16 | Oncology outpatient (recurring) (ONCR) | payer MEDICARE, SELFPAY ==
[2024-05-30 12:25] LABS: Basophils % 0.3 %; Hematocrit 40.5 % (36-47); Lymphocytes # 0.6 10^3/uL (0.8-4.8); Lymphocytes % 7.7 %; Mean Corpuscular HGB Conc 33.3 g/dL (30-55); Mean Corpuscular Hemoglobin 29.7 pg (27-33); Mean Corpuscular Volume 89.2 fl (85-98); Monocytes # 0.4 10^3/uL (0.2-0.9); Monocytes % 5.5 %; Neutrophils # 6.13 10^3/uL (1.8-7.7); Neutrophils % 86.2 %; Nucleated Red Blood Cells % 0 %; Platelet Count 249 10^3/cmm (157-399); Red Blood Count 4.54 10^6/uL (3.85-5.65); Red Cell Distribution Width 14.2 % (12.1-15.1); White Blood Count 7.11 10^3/uL (3.29-11.43)
[2024-05-30 12:47] LABS: Alanine Aminotransferase 17 U/L (0-33); Albumin Level 3.9 g/dL (3.5-5.2); Alkaline Phosphatase 141 U/L (35-105); Anion Gap 12.6 (5-19); Aspartate Amino Transferase 9 U/L (0-32); Blood Urea Nitrogen 12 mg/dL (6-20); Carbon Dioxide 26 mmol/L (22-29); Chloride 102 mmol/L (98-107); Creatinine Clr Calc Pharmacy 63.4926; Ferritin 900 ng/mL (15-150); Glomerular Filtration Rate 57.8 mL/min (90-130); Glucose 108 mg/dL (65-115); Iron 38 ug/dL (37-145); Osmolality Calculated 284 mOsm/kg (285-295); Percent Saturation 22.4 % (20-50); Potassium 3.6 mmol/L (3.5-5.1); Sodium 137 mmol/L (136-145); Total Bilirubin 0.3 mg/dL (0.15-1.2); Total Iron Binding Capacity 169 mcg/dl; Total Protein 6.9 g/dL (6.6-8.7); Unsaturated Iron Binding 131 ug/dL (112-347)
== END 2024-06-28 23:59 | disposition home or self-care (01) ==
PROVIDERS: Nurse Practitioner Family; PCP Family Medicine; Visit Provider Internal Medicine Medical Oncology
DX: D50.9 Iron deficiency anemia, unspecified (principal); D50.8 Other iron deficiency anemias; Z79.899 Other long term (current) drug therapy; K90.9 Intestinal malabsorption, unspecified
CPT/HCPCS: 36415; 80053; 82728; 83540; 83550; 85025; 99214

== ENCOUNTER 2024-06-30 13:22 | Oncology outpatient (recurring) (ONCR) | payer MEDICARE, SELFPAY ==
--- NOTE | 2024-06-30 13:45 | MR_ITS ---
WS: [id number] MRI CERVICAL SPINE NONCONTRAST HISTORY: Neck Pain COMPARISON: Radiograph 05/10/2024 Technique: Multiplanar, multisequence noncontrast imaging of the cervical spine. Mild straightening of the normal lordosis. Disc spaces are all moderately narrowed and desiccated. Be nign hemangioma at C7. Signal within the cervical cord is normal. Visualized posterior fossa is unremarkable. Craniocervical junction, C1 and C2 relationship, odontoid process and soft tissues are normal. C2-C3: Mild annular disc bulging and osteophytic ridging. No significant stenosis. C3-C4: Osteophytic ridging and a central disc protrusion with facet arthritis. Moderate central with bilateral foraminal stenosis. C4-C5: Diffuse annular disc bulging with osteophytic ridging. Small central disc protrusion. Mild tristin tral and LEFT foraminal stenosis. Moderate RIGHT foraminal stenosis due to facet and osteophyte disea se. C5-C6: Diffuse annular disc bulging with a RIGHT paracentral disc protrusion. Moderate facet arthriti s. Moderate central with mild bilateral foraminal stenosis. C6-C7: Diffuse annular disc bulging with a large LEFT paracentral disc osteophyte complex. Disc osteo phyte is deforming the LEFT lateral thecal sac. Moderate central with foraminal stenosis. C7-T1: Mild osteophytic ridging. Small bilateral foraminal osteophytes. Mild foraminal stenosis. Paraspinal soft tissue are normal. MR/MR cervical spin wo con* [id number] IMPRESSION: 1. Diffuse degenerative disc disease and osteophytosis throughout the cervical spine. 2. C6-7: Large LEFT paracentral disc osteophyte complex deforming the LEFT lat eral thecal sac. Moderate central and bilateral foraminal stenosis. 3. C5-6: RIGHT paracentral disc protrusion with facet arthritis. Moderate cent ral with mild bilateral foraminal stenosis. 4. C4-5: Small central disc protrusion. Moderate RIGHT foraminal stenosis due to disc osteophyte disease. Mild central LEFT foraminal stenosis. 5. C3-4: Central disc protrusion. Moderate central with bilateral foraminal st enosis. 6. C7-T1: Mild foraminal stenosis.
--- NOTE | 2024-06-30 14:30 | MR_ITS ---
WS: [id number] MRI LUMBAR SPINE NONCONTRAST HISTORY: Back Pain COMPARISON: 05/28/2022 TECHNIQUE: Sagittal and axial multisequence imaging is submitted. Numerous hyperintense foci within the lumbar vertebral bodies and sacrum. Similar pattern to the prio r study and consistent with hemangiomas. Disc spaces are narrowed and desiccated. Osteophytic ridging and annular disc bulging most significant from L3-4 to L5-S1. No fractures. There is a new Schmorl's node defect along the superior endplate of L5. Conus terminates normally at L1-2 disc level. L1-L2: Mild foraminal narrowing. L2-L3: Diffuse annular disc bulging with a moderate LEFT foraminal disc protrusion. Bilateral facet j oint arthropathy. LEFT foraminal disc protrusion is contacting the exiting LEFT L2 nerve root. L3-L4: Diffuse annular disc bulging with a central disc protrusion. Ligamentum flavum and facet arthr itis. Bilateral facet joint arthropathy. Mild central and subarticular recess stenosis. Moderate LEFT and mild RIGHT foraminal stenosis. L4-L5: Diffuse annular disc bulging with a central disc protrusion. Central disc protrusion contacts the traversing L5 nerve roots, LEFT greater than RIGHT. Mild LEFT foraminal stenosis. Mild central st enosis. L5-S1: Marked diffuse annular disc bulging with a moderate central disc protrusion. Disc protrusion c ontacts the S1 nerve roots. Bilateral facet arthritis. Mild foraminal stenosis. MR/MR lumbar spine wo con* [id number] IMPRESSION: 1. Mild progression of degenerative disc disease since 05/28/2022. 2. L5-S1: Moderate central disc protrusion contacting the S1 nerve roots. Mild foraminal stenosis. 3. L4-5: Central disc protrusion contacts the traversing L5 nerve roots, LEFT greater than RIGHT. Mild central and LEFT foraminal stenosis. 4. L3-4: Mild central and subarticular recess stenosis. Moderate LEFT and mild RIGHT foraminal stenosis due to disc and osteophyte disease. Progression of st enosis since 2021. 5. L1-2: Moderate sized LEFT foraminal disc protrusion. Disc protrusion contac ts the exiting LEFT L2 nerve root. LEFT foraminal disc protrusion has progresse d since the prior study.
== END 2024-07-29 23:59 | disposition home or self-care (01) ==
PROVIDERS: PCP Family Medicine; Visit Provider Orthopaedic Surgery
DX: M54.2 Cervicalgia (principal); M54.9 Dorsalgia, unspecified; M51.379 Other intervertebral disc degeneration, lumbosacral region without mention of lumbar back pain or lower extremity pain; M51.27 Other intervertebral disc displacement, lumbosacral region; M48.061 Spinal stenosis, lumbar region without neurogenic claudication; M25.78 Osteophyte, vertebrae
CPT/HCPCS: 72141; 72148

== ENCOUNTER 2024-07-21 10:12 | Outpatient (CLI) | payer MEDICARE, SELFPAY ==
--- NOTE | 2024-07-21 10:20 | MM_ITS ---
WS: [id number] SCREENING DIGITAL TOMOSYNTHESIS MAMMOGRAM WITH CAD HISTORY: SCREENING COMPARISON: 05/20/2023, 05/08/2022 Bilateral CC and MLO with tomosynthesis views submitted. Synthetic mammography reviewed. Computer aid ed detection analyzed. Breast composition: There are scattered areas of fibroglandular density. No suspicious masses, microc alcifications or architectural distortion. MM/MM scr BI tomosynthesis [id number] IMPRESSION: BI-RADS: 1 - Negative. FOLLOW UP: 1 Year Follow-up
== END 2024-07-21 10:13 | disposition home or self-care (01) ==
LOC: MOBLMAM 10:13
PROVIDERS: PCP Family Medicine; Visit Provider Family Medicine
DX: Z12.31 Encounter for screening mammogram for malignant neoplasm of breast (principal); R92.323 Mammographic fibroglandular density, bilateral breasts
CPT/HCPCS: 77063; 77067

== ENCOUNTER → 2024-07-26 14:45 | Outpatient (BNVA) | payer MEDICARE, SELFPAY | PROVIDERS: PCP Family Medicine; Visit Provider Orthopaedic Surgery | DX: Z01.818 Encounter for other preprocedural examination (principal); M54.2 Cervicalgia | CPT/HCPCS: 36415; 80053; 81001; 85025; 99214 ==

== ENCOUNTER → 2024-08-19 12:45 | Outpatient (BNVA) | payer MEDICARE, SELFPAY | PROVIDERS: PCP Family Medicine; Visit Provider Internal Medicine | DX: I25.10 Atherosclerotic heart disease of native coronary artery without angina pectoris (principal); R01.1 Cardiac murmur, unspecified; I10 Essential (primary) hypertension | CPT/HCPCS: 99214 ==

== ENCOUNTER → 2024-09-05 09:23 | Outpatient (BNVA) | payer MEDICAID, MEDICARE, SELFPAY | PROVIDERS: PCP Family Medicine; Visit Provider Internal Medicine Rheumatology | DX: L40.50 Arthropathic psoriasis, unspecified (principal); Z79.899 Other long term (current) drug therapy; Z71.85 Encounter for immunization safety counseling; M06.00 Rheumatoid arthritis without rheumatoid factor, unspecified site | CPT/HCPCS: 99214 ==

== ENCOUNTER 2024-09-23 10:00 | Oncology outpatient (recurring) (ONCR) | payer MEDICARE, SELFPAY ==
[2024-09-21 11:10] LABS: Basophils % 0.6 %; Eosinophils # 0.1 10^3/uL (0.0-0.8); Eosinophils % 1.6 %; Hematocrit 37.4 % (36-47); Lymphocytes # 1.4 10^3/uL (0.8-4.8); Lymphocytes % 22.2 %; Mean Corpuscular Hemoglobin 29.8 pg (27-33); Mean Corpuscular Volume 87.8 fl (85-98); Mean Platelet Volume 8.9 fL (7.4-10.4); Monocytes # 0.6 10^3/uL (0.2-0.9); Monocytes % 9.2 %; Neutrophils # 4.17 10^3/uL (1.8-7.7); Neutrophils % 66.2 %; Nucleated Red Blood Cells % 0 %; Platelet Count 250 10^3/cmm (157-399); Red Blood Count 4.26 10^6/uL (3.85-5.65); Red Cell Distribution Width 12.6 % (12.1-15.1)
[2024-09-21 11:31] LABS: Alanine Aminotransferase 21 U/L (0-33); Albumin Level 4.2 g/dL (3.5-5.2); Alkaline Phosphatase 185 U/L (35-105); Anion Gap 16.2 (5-19); Aspartate Amino Transferase 13 U/L (0-32); Blood Urea Nitrogen 14 mg/dL (6-20); Calcium 8.8 mg/dL (8.5-10.5); Carbon Dioxide 22 mmol/L (22-29); Chloride 108 mmol/L (98-107); Ferritin 751 ng/mL (15-150); Globulin 2.9 g/dL (1.3-4.6); Glomerular Filtration Rate 57.6 mL/min (90-130); Glucose 112 mg/dL (65-115); Iron 61 ug/dL (37-145); Osmolality Calculated 295 mOsm/kg (285-295); Percent Saturation 34.4 % (20-50); Potassium 4.2 mmol/L (3.5-5.1); Sodium 142 mmol/L (136-145); Total Bilirubin 0.2 mg/dL (0.15-1.2); Total Iron Binding Capacity 177 mcg/dl; Total Protein 7.1 g/dL (6.6-8.7); Unsaturated Iron Binding 116 ug/dL (112-347)
[2024-09-21 11:39] LABS: Erythrocyte Sedimentation Rate 21 mm/hr (0-15)
--- NOTE | 2024-09-23 10:00 | USCV_ITS ---
Jayla Alvarez Age: 54 Gender: F : 1970 Exam Date: 09/23/2024 10:20 Ordering Phys: Rell Harmon M.D ([email or web address]) Technologist: Demetris Haynes Exam Location: [facility] – [place] Indication: mitral regurg BP: 122 / 86 HR: 77 Rhythm: Sinus Technical Quality: Adequate MEASUREMENTS (Male / Female) Normal Values 2D ECHO LV Diastolic Diameter PLAX 4.3 cm 4.2 - 5.9 / 3.9 - 5.3 cm IVS Diastolic Thickness 1.0 cm 0.6 - 1.0 / 0.6 - 0.9 cm IVS Systolic Thickness 1.4 cm LVPW Diastolic Thickness 1.4 cm 0.6 - 1.0 / 0.6 - 0.9 cm LVPW Systolic Thickness 1.9 cm LVOT Diameter 2.0 cm LV Ejection Fraction 2D Teich 65.5 % LV Ejection Fraction MOD 4C 67.9 % LV Ejection Fraction MOD 2C 67.6 % LV Ejection Fraction 2C AL 69.1 % LA Diameter 3.0 cm RA Systolic Volume 4C AL 23.8 ml RA Systolic Volume 4C MOD 23.8 ml LA Sys Volume AL 35.3 cm cubed LA Sys Volume Index AL 17.7 cm cubed/m squared Aorta at Sinotubular Diameter 2.6 cm IVC Diameter 1.5 cm M-MODE LA Ao Ratio MM 1.7 AV Cusp Separation MM 1.2 cm DOPPLER AV Peak Velocity 233.0 cm/s LVOT Peak Velocity 128.0 cm/s AV Area Cont Eq vti 1.7 cm squared AV Area Cont Eq pk 1.7 cm squared MV Peak Velocity 100.0 cm/s MV Area PHT 3.1 cm squared Mitral E to A Ratio 1.0 TV Peak Velocity 272.5 cm/s TR Peak Velocity 338.0 cm/s TR Peak Gradient 45.7 mmHg TR Mean Velocity 252.0 cm/s TR Mean Gradient 27.7 mmHg TR Velocity Time Integral 82.3 cm PV Peak Velocity 103.0 cm/s RV Ejection Time 0.3 s FINDINGS Left Ventricle Left ventricle is normal in size. LV systolic function is normal with EF of 60-65%. No regional wall motion abnormalities. Right Ventricle Normal in size and function Right Atrium Normal in size Left Atrium Normal in size Mitral Valve Structurally normal mitral valve. Mild mitral regurgitation Aortic Valve Aortic valve is thickened. Mild aortic stenosis with aortic valve area of 1.75cm2 with mean gradient of 12mmHg. Mild aortic regurgitation Tricuspid Valve Mild tricuspid regurgitation. Insufficient TR jet to calculate RVSP Pulmonic Valve Not well visualized Pericardium Normal Aorta Normal in size IVC Appears to be normal CONCLUSIONS LV systolic function is normal with EF of 60-65% Mild mitral regurgitation Mild aortic stenosis. Mild aortic regurgitation Mild tricuspid regurgitation Rell Harmon MD (Electronically Signed) Final Date: 04 October 2024 22:10 S
== END 2024-09-26 23:59 | disposition home or self-care (01) ==
LOC: RAD 09-24 → ONCMED 09-26 09:06
PROVIDERS: Internal Medicine Rheumatology; Nurse Practitioner Family; PCP Family Medicine; Visit Provider Internal Medicine
DX: Z53.9 Procedure and treatment not carried out, unspecified reason; I35.0 Nonrheumatic aortic (valve) stenosis; I08.3 Combined rheumatic disorders of mitral, aortic and tricuspid valves
CPT/HCPCS: 36415; 80053; 82728; 83540; 83550; 85025; 85651; 93306; 99214

== ENCOUNTER 2024-10-17 07:08 | Outpatient (CLI) | payer MEDICARE, MEDICAID, SELFPAY ==
--- NOTE | 2024-10-17 07:12 | CT_ITS ---
WS: [id number] LDCT LUNG CANCER SCREENING TECHNIQUE: Noncontrast CT of the chest with coronal and sagittal reformatted images. CLINICAL INFORMATION: NICOTINE DEPENDENCE COMPARISON: CT 2022 DLP: 82.10 mGy.cm DIvol: Mean CTDIvol: 2.00 (mGy) All CT scans at [facility] use at least one of these dose optimization techniques: automated exposure control; mA and/or kV adjustment per patient size (includes targeted exams where dose is matched to clinical indication); or iterative reconstruction. FINDINGS: A few scattered subcentimeter nodules are stable. Atelectasis in the lung bases. No new suspicious pulmonary parenchymal opacities. Aortic calcification. Dense coronary calcification. No mediastinal or hilar lymphadenopathy. No axillary lymphadenopathy. Small esophageal hernia. Cholecystectomy clips. Adrenal glands are normal. CT/CT lung screening [id number] IMPRESSION: LUNG-RADS: 2-Benign Appearance or Behavior FOLLOW UP: 12 Month: Continue annual screening with LDCT
== END 2024-10-17 07:09 | disposition home or self-care (01) ==
LOC: RAD 07:09
PROVIDERS: PCP Family Medicine; Visit Provider Family Medicine
DX: Z12.2 Encounter for screening for malignant neoplasm of respiratory organs (principal); F17.210 Nicotine dependence, cigarettes, uncomplicated; R91.8 Other nonspecific abnormal finding of lung field; J98.11 Atelectasis; I70.0 Atherosclerosis of aorta; I25.10 Atherosclerotic heart disease of native coronary artery without angina pectoris; K44.9 Diaphragmatic hernia without obstruction or gangrene; Z90.49 Acquired absence of other specified parts of digestive tract
CPT/HCPCS: 71271

== ENCOUNTER → 2024-10-27 14:09 | Outpatient (BNVA) | payer MEDICARE, MEDICAID, SELFPAY | PROVIDERS: PCP Family Medicine; Visit Provider Student in an Organized Health Care Education/Training Program | DX: K51.90 Ulcerative colitis, unspecified, without complications (principal) | CPT/HCPCS: 99213 ==

== ENCOUNTER → 2024-12-26 09:36 | Outpatient (BNVA) | payer MEDICARE, SELFPAY | PROVIDERS: PCP Family Medicine; Visit Provider Internal Medicine Rheumatology | DX: L40.50 Arthropathic psoriasis, unspecified (principal); Z79.899 Other long term (current) drug therapy; Z71.85 Encounter for immunization safety counseling | CPT/HCPCS: 36415; 80076; 82306; 82565; 85025; 85651; 86140; 86480; 99214 ==

== ENCOUNTER 2024-12-28 13:06 | Oncology outpatient (recurring) (ONCR) | payer MEDICARE, SELFPAY ==
[2024-12-28 13:32] LABS: Hematocrit 38.1 % (36-47); Hemoglobin 12.30 g/dL (11.27-16.99); Mean Corpuscular HGB Conc 32.3 g/dL (30-55); Mean Corpuscular Hemoglobin 30.1 pg (27-33); Mean Corpuscular Volume 93.2 fl (85-98); Nucleated Red Blood Cells % 0 %; Platelet Count 292 10^3/cmm (157-399); Red Blood Count 4.09 10^6/uL (3.85-5.65); White Blood Count 6.02 10^3/uL (3.29-11.43)
[2024-12-28 13:49] LABS: Alanine Aminotransferase 16 U/L (0-33); Albumin Level 4.1 g/dL (3.5-5.2); Alkaline Phosphatase 163 U/L (35-105); Anion Gap 17.3 (5-19); Aspartate Amino Transferase 13 U/L (0-32); Blood Urea Nitrogen 15 mg/dL (6-20); Calcium 9.1 mg/dL (8.5-10.5); Carbon Dioxide 23 mmol/L (22-29); Chloride 107 mmol/L (98-107); Creatinine Clr Calc Pharmacy 64.9391; Ferritin 686 ng/mL (15-150); Globulin 3.0 g/dL (1.3-4.6); Glucose 103 mg/dL (65-115); Iron 49 ug/dL (37-145); Osmolality Calculated 297 mOsm/kg (285-295); Potassium 4.3 mmol/L (3.5-5.1); Sodium 143 mmol/L (136-145); Total Iron Binding Capacity 214 mcg/dl; Total Protein 7.1 g/dL (6.6-8.7); Unsaturated Iron Binding 165 ug/dL (112-347)
== END 2025-01-26 23:59 | disposition home or self-care (01) ==
PROVIDERS: Nurse Practitioner Family; PCP Family Medicine; Visit Provider Internal Medicine
DX: D50.9 Iron deficiency anemia, unspecified (principal); K58.9 Irritable bowel syndrome, unspecified; F17.210 Nicotine dependence, cigarettes, uncomplicated
CPT/HCPCS: 36415; 80053; 82728; 83540; 83550; 85025; 99214

== ENCOUNTER 2025-03-29 12:01 | Oncology outpatient (recurring) (ONCR) | payer MEDICARE, SELFPAY ==
[2025-03-29 12:31] LABS: Hematocrit 38.6 % (36-47); Hemoglobin 12.90 g/dL (11.27-16.99); Mean Corpuscular HGB Conc 33.4 g/dL (30-55); Mean Corpuscular Hemoglobin 30.2 pg (27-33); Mean Corpuscular Volume 90.4 fl (85-98); Nucleated Red Blood Cells % 0 %; Platelet Count 316 10^3/cmm (157-399); Red Blood Count 4.27 10^6/uL (3.85-5.65); White Blood Count 8.49 10^3/uL (3.29-11.43)
[2025-03-29 12:58] LABS: Alanine Aminotransferase 25 U/L (0-33); Albumin Level 4.4 g/dL (3.5-5.2); Alkaline Phosphatase 184 U/L (35-105); Anion Gap 16.5 (5-19); Aspartate Amino Transferase 16 U/L (0-32); Blood Urea Nitrogen 18 mg/dL (6-20); Calcium 8.9 mg/dL (8.5-10.5); Carbon Dioxide 22 mmol/L (22-29); Chloride 105 mmol/L (98-107); Creatinine Clr Calc Pharmacy 64.0288; Ferritin 652 ng/mL (15-150); Globulin 3.5 g/dL (1.3-4.6); Glucose 89 mg/dL (65-115); Iron 43 ug/dL (37-145); Osmolality Calculated 289 mOsm/kg (285-295); Potassium 4.5 mmol/L (3.5-5.1); Sodium 139 mmol/L (136-145); Total Iron Binding Capacity 183 mcg/dl; Total Protein 7.9 g/dL (6.6-8.7); Unsaturated Iron Binding 140 ug/dL (112-347)
== END 2025-04-28 23:59 | disposition home or self-care (01) ==
PROVIDERS: Internal Medicine; PCP Family Medicine; Visit Provider Internal Medicine
DX: D50.9 Iron deficiency anemia, unspecified (principal); K90.9 Intestinal malabsorption, unspecified; F17.210 Nicotine dependence, cigarettes, uncomplicated; K51.90 Ulcerative colitis, unspecified, without complications; Z79.899 Other long term (current) drug therapy
CPT/HCPCS: 36415; 80053; 82728; 83540; 83550; 85025; 99214

== ENCOUNTER → 2025-05-09 09:11 | Outpatient (BNVA) | payer MEDICARE, SELFPAY | PROVIDERS: PCP Family Medicine; Visit Provider Internal Medicine Rheumatology | DX: L40.50 Arthropathic psoriasis, unspecified (principal); Z79.899 Other long term (current) drug therapy; Z71.85 Encounter for immunization safety counseling | CPT/HCPCS: 99214 ==

== ENCOUNTER → 2025-05-11 13:01 | Outpatient (BNVA) | payer MEDICARE, SELFPAY | PROVIDERS: PCP Family Medicine; Visit Provider Internal Medicine | DX: I25.10 Atherosclerotic heart disease of native coronary artery without angina pectoris (principal); I10 Essential (primary) hypertension; F17.200 Nicotine dependence, unspecified, uncomplicated; I08.0 Rheumatic disorders of both mitral and aortic valves | CPT/HCPCS: 99214 ==